=== PATIENT | male | born 1955 | race Caucasian/White ===

== ENCOUNTER → 2016-06-07 | Outpatient (CLI) | payer MEDICARE ==
--- NOTE | 2016-06-08 09:53 | XR ---
EXAMINATION TYPE: XR chest 2V DATE OF EXAM: 06/07/2016 2:18 PM COMPARISON: 08/15/2011 HISTORY: Cough FINDINGS: The lungs are clear and there is no pneumothorax, pleural effusion, or focal pneumonia. Arthropathy of the shoulders noted. Degenerative and hypertrophic change of the spine. Hyperinflation suggests CO PD. IMPRESSION: 1. No acute process.
== END | disposition home or self-care (01) ==
LOC: RADXRYALE 13:50
PROVIDERS: ATTEND Internal Medicine
DX: R05 Cough (principal)
CPT/HCPCS: 71020

== ENCOUNTER → 2016-07-18 | Outpatient (CLI) | payer MEDICARE ==
--- NOTE | 2016-07-18 16:30 | CTL ---
EXAMINATION TYPE: CT Low Dose Lung DATE OF EXAM ORDERED: 07/18/2016 4:20 PM HISTORY: Long-term tobacco use. Lung cancer screening. Occasional shortness of breath and mild chest discomfort per patient CT DLP: 112.[address] CTDI: 2.8 mGy Automated exposure control for dose reduction was used. SCREENING VISIT: Initial study COMPARISON: Chest x-ray June 07, 2016. TECHNIQUE: Low dose computed tomography scan was performed through the chest at 1 mm thick sections a nd reconstructed images in the coronal plane at [address] DIAGNOSTIC QUALITY: Satisfactory FINDINGS: LUNG NODULES: None. LUNGS: COPD: Severity: Mild Fibrosis: Severity: Mild bibasilar posterior linear scarring or fibrosis. Lymph nodes: No suspicious greater than 1 cm lymph nodes. Slightly prominent but subcentimeter AP [place], prevascular, paratracheal, pericarinal, and subcarinal lymph nodes are noted Other findings: No additional significant findings seen BILATERAL PLEURAL SPACE: Effusion: None Calcification: None Thickening: None Pneumothorax: None HEART: Heart Size: Normal Coronary calcification: Mild to moderate most prominent proximal LAD. Pericardial effusion: None OTHER FINDINGS: Upper abdomen: There is a 5 cm simple appearing cyst in the left hepatic lobe. There is 2 mm calculus mid to lower pole level left kidney on axial image 354 Bony thorax: There is moderate multilevel spurring throughout the thoracic spine. Supraclavicular region: No suspicious abnormality is evident Other: No additional significant abnormality is seen. IMPRESSION: No suspicious nodule or mass identified. FOLLOW UP CT CHEST RECOMMENDATION: Annual low-dose lung screening CT CT LUNG RAD: Lung-Rad 1 Negative
== END | disposition home or self-care (01) ==
LOC: RADCTMAIN 16:00
PROVIDERS: ATTEND Internal Medicine Cardiovascular Disease
DX: Z12.2 Encounter for screening for malignant neoplasm of respiratory organs (principal); Z87.891 Personal history of nicotine dependence

== ENCOUNTER 2017-10-24 11:13 | Observation (INO) | payer MEDICARE ==
[2017-10-24] MEDS ORDERED: MECLIZINE 12.5 MG TAB PO STA (11:43)
[2017-10-24] MEDS ORDERED: SODIUM CHLORIDE 0.9% 1,000 ML IV STA (11:43)
[2017-10-24 12:28] LABS: Basophils % (A) 0 %; Eosinophils # (A) 0.1 k/uL (0-0.7); Eosinophils % (A) 1 %; HCT 47.3 % (39.0-53.0); HGB 16.1 gm/dL (13.0-17.5); Lymphocytes # (A) 1.1 k/uL (1.0-4.8); Lymphocytes % (A) 14 %; MCH 30.4 pg (25.0-35.0); MCV 89.5 fL (80.0-100.0); Mean Platelet Volume 7.8; Monocytes # (A) 0.4 k/uL (0-1.0); Monocytes % (A) 6 %; Neutrophils % (A) 77 %; Platelet Count 173 k/uL (150-450); RBC 5.28 m/uL (4.30-5.90); RDW 12.6 % (11.5-15.5); WBC 7.7 k/uL (3.8-10.6)
[2017-10-24 12:31] LABS: INR 1.1 (<1.2); Prothrombin Time 10.3 sec (9.0-12.0)
[2017-10-24 12:41] LABS: ALT 32 U/L (21-72); AST 21 U/L (17-59); Albumin 3.9 g/dL (3.5-5.0); Alkaline Phosphatase 90 U/L (38-126); Anion Gap 9 mmol/L; Blood Urea Nitrogen 18 mg/dL (9-20); Calcium 8.9 mg/dL (8.4-10.2); Carbon Dioxide 22 mmol/L (22-30); Chloride 111 mmol/L (98-107); Glucose 97 mg/dL (74-99); Potassium 4.4 mmol/L (3.5-5.1); Sodium 142 mmol/L (137-145); Total Bilirubin 0.4 mg/dL (0.2-1.3); Total Protein 6.3 g/dL (6.3-8.2)
--- NOTE | 2017-10-24 13:18 | CT ---
EXAMINATION TYPE: CT brain wo con DATE OF EXAM: 10/24/2017 COMPARISON: NONE HISTORY: Left sided facial numbness and dizziness CT DLP: 1065.7 mGycm Automated exposure control for dose reduction was used. FINDINGS: There is no acute intracranial hemorrhage, mass effect, or midline shift identified. No suspicious e xtra-axial fluid collection. Few subcentimeter patchy areas of hypoattenuation are seen within the pe riventricular and subcortical white matter, likely on the basis of chronic microangiopathy. The ventr icles and sulci are within normal limits in size. The globes are intact and the visualized sinuses a re clear. Atherosclerosis is seen of the intracranial vasculature. IMPRESSION: No acute intracranial process. No evidence of hemorrhage, mass effect, or midline shift is seen.
--- NOTE | 2017-10-24 13:26 | XR ---
EXAMINATION TYPE: XR chest 2V DATE OF EXAM: 10/24/2017 COMPARISON: 06/07/2016 HISTORY: Neck pain, dizziness, and slurred speech. Weakness. TECHNIQUE: Frontal and lateral views of the chest are obtained. FINDINGS: There is no focal air space opacity, pleural effusion, or pneumothorax seen. The cardiac silhouette size is within normal limits. The osseous structures are intact. There is redemonstratio n of pulmonary hyperinflation again suggestive of underlying COPD as there is flattening of the diaph ragms. Mild multilevel degenerative changes of the thoracic spine and acromioclavicular joints are al so seen. IMPRESSION: No acute cardiopulmonary process. Chronic changes of COPD.
--- NOTE | 2017-10-24 13:26 | XR ---
EXAMINATION TYPE: XR cervical spine comp DATE OF EXAM: 10/24/2017 COMPARISON: NONE HISTORY: Neck pain TECHNIQUE: Four views are submitted. FINDINGS: The odontoid is intact. There are no compression deformities. The prevertebral soft tissue structur es are within normal limits. Calcification the soft tissue the neck likely related carotid artery. T here is a moderate to severe degenerative disc disease with C5-6 and C6-C7 with multilevel severe fac et arthropathy. Findings suggest neural foraminal encroachment bilaterally at levels C3-C7. IMPRESSION: 1. Multilevel degenerative disc disease with severe facet arthropathy. Severe degenerative disc disea se C5-6 and C6-C7. 2. Multilevel bilateral neural foraminal encroachment..
[2017-10-24 15:59] LABS: Appearance,Urine Clear (Clear); Bilirubin,Urine Negative (Negative); Blood,Urine Negative (Negative); Color,Urine Yellow; Glucose,Urine (UA) Negative (Negative); Ketones,Urine 1+ (Negative); Leukocyte Esterase,Urine Negative (Negative); Nitrite,Urine Negative (Negative); PH, Urine 5.5 (5.0-8.0); Protein,Urine Negative (Negative); Urobilinogen,Urine <2.0 mg/dL (<2.0)
[2017-10-24] MEDS ORDERED: ASPIRIN 81 MG PO STA ×2 (15:59→16:21)
[2017-10-24] MEDS ORDERED: NALOXONE 0.4 MG/ML 1 ML VIAL IV PRN (16:16)
[2017-10-24] MEDS ORDERED: MORPHINE SULFATE 2 MG/ML SYRINGE IV PRN (16:16)
[2017-10-24] MEDS ORDERED: ACETAMINOPHEN TAB 325 MG TAB PO PRN (16:16)
[2017-10-24] MEDS ORDERED: ONDANSETRON 4 MG/2 ML VIAL IVP PRN (16:16)
--- NOTE | 2017-10-24 16:16 | ED ---
Dizziness HPI - General Chief Complaint: Dizziness Stated Complaint: poss cva Time Seen by Provider: 10/24/17 11:30 Source: patient Mode of arrival: ambulatory Limitations: no limitations - History of Present Illness Initial Comments: 62 years old gentleman comes in with the dizziness and he had the episode of slurred speech yesterday he feels left-sided the face is numb he doesn't seem right it's not hurting but he feels pins and needles also complaining about the neck discomfort he had neck trauma long time ago he was used to place cords for years ago his neck was in a traction for about 1 week, he is working on a project where he was straining his neck been no trauma to the back area system is unremarkable otherwise - Related Data Home Medications Medication Instructions Recorded Confirmed Cyanocobalamin (Vitamin B-12) 1,000 mcg PO DAILY 10/24/17 10/24/17 [Vitamin B-12] Ibuprofen [Motrin] 600 mg PO Q8HR PRN 10/24/17 10/24/17 Multivitamin/Iron/Folic Acid 1 tab PO DAILY 10/24/17 10/24/17 [Centrum Complete Multivit Tab] traMADol HCL [Ultram] 50 mg PO Q8H PRN 10/24/17 10/24/17 Allergies Allergy/AdvReac Type Severity Reaction Status Date / Time No Known Allergies Allergy Verified 10/24/17 11:35 Review of Systems ROS Statement: Those systems with pertinent positive or pertinent negative responses have been documented in the HPI. ROS Other: All systems not noted in ROS Statement are negative. Past Medical History Past Medical History: Rheumatoid Arthritis (RA) Additional Past Medical History / Comment(s): FELL ON Saturday01-09-15-FX RT HIP, HX RT KIDNEY CA History of Any Multi-Drug Resistant Organisms: None Reported Past Surgical History: Joint Replacement, Orthopedic Surgery Additional Past Surgical History / Comment(s): RT NEPHRECTOMY,RT KNEE REPLACE, ROT CUFF REPAIR LT,LT HAND REMOVAL OF A NAIL,MULT ORTHOSCOPIC SURG MEGAN KNEES, CLOSED REDUCTION/PINNING OF RT HIP Past Anesthesia/Blood Transfusion Reactions: Motion Sickness, Postoperative Nausea & Vomiting (PONV) Past Psychological History: No Psychological Hx Reported Smoking Status: Current every day smoker Past Alcohol Use History: Occasional Past Drug Use History: None Reported - Past Family History Mother Family Medical History: Cancer Father Family Medical History: Cancer General Exam - General Exam Comments Initial Comments: General: The patient is awake and alert, in no distress, and does not appear acutely ill. Skin: Skin is warm and dry and no rashes or lesions are noted. Eye: Pupils are equal, round and reactive to light, extra-ocular movements are intact; there is normal conjunctiva bilaterally. Ears, nose, mouth and throat: There are moist mucous membranes and no oral lesions. Left-sided the face feels numb, but there are no motor deficits Neck: The neck is supple, there is no tenderness no signs of meningitis Cardiovascular: There is a regular rate and rhythm. No murmur, rub or gallop is appreciated. Respiratory: To auscultation bilateral, no wheezing no rhonchi no distress respiratory velasquez noticed Gastrointestinal: Soft, non-distended, non-tender abdomen without masses or organomegaly noted. There is no rebound or guarding present. Bowel sounds are unremarkable. Back: There is no tenderness to palpation in the midline. There is no obvious deformity. Musculoskeletal: Normal ROM, no tenderness, There is no pedal edema. There is no calf tenderness or swelling. No cords were appreciated. Neurological: CN II-XII intact, Cranial nerves III through XII are intact. There are no obvious motor or sensory deficits. Coordination appears grossly intact. Speech is normal. Psychiatric: Cooperative, appropriate mood & affect, normal judgment. Limitations: no limitations Course Vital Signs 10/24/17 10/24/17 10/24/17 11:15 13:36 14:40 Temperature 98.3 F Pulse Rate 65 52 L 52 L Respiratory 18 16 18 Rate Blood Pressure 182/68 139/70 151/80 O2 Sat by Pulse 98 97 97 Oximetry 10/24/17 15:41 Temperature Pulse Rate 48 L Respiratory 16 Rate Blood Pressure 161/87 O2 Sat by Pulse 98 Oximetry Labs and imaging were reviewed cervical spine x-ray shows severe degenerative disease and chest x-rays unremarkable head CT is unremarkable CBC compressive metabolic panel troponin and EKG are absolutely unremarkable considering his dizziness and left-sided facial numbness and admit him and will allow consult to neurology he be admitted to Dr. Brown service EKG Findings - EKG Comments: EKG Findings:: EKG is normal sinus rather sinus bradycardia ventricular rate is 62 IA interval is 138 QRS duration is 95/QTc is 450/422 review of this EKG does not reveal any ST elevation or ST depression Medical Decision Making - Lab Data Result diagrams: 10/24/17 12:07 10/24/17 12:07 Lab Results 10/24/17 10/24/17 10/24/17 Range/Units 12:07 12:07 12:07 WBC 7.7 (3.8-10.6) k/uL RBC 5.28 (4.30-5.90) m/uL Hgb 16.1 (13.0-17.5) gm/dL Hct 47.3 (39.0-53.0) % MCV 89.5 (80.0-100.0) fL MCH 30.4 (25.0-35.0) pg MCHC 34.0 (31.0-37.0) g/dL RDW 12.6 (11.5-15.5) % Plt Count 173 (150-450) k/uL Neutrophils % 77 % Lymphocytes % 14 % Monocytes % 6 % Eosinophils % 1 % Basophils % 0 % Neutrophils # 6.0 (1.3-7.7) k/uL Lymphocytes # 1.1 (1.0-4.8) k/uL Monocytes # 0.4 (0-1.0) k/uL Eosinophils # 0.1 (0-0.7) k/uL Basophils # 0.0 (0-0.2) k/uL PT 10.3 (9.0-12.0) sec INR 1.1 (<1.2) Sodium 142 (137-145) mmol/L Potassium 4.4 (3.5-5.1) mmol/L Chloride 111 H (98-107) mmol/L Carbon Dioxide 22 (22-30) mmol/L Anion Gap 9 mmol/L BUN 18 (9-20) mg/dL Creatinine 0.99 (0.66-1.25) mg/dL Est GFR (CKD-EPI)AfAm >90 (>60 ml/min/1.73 sqM) Est GFR (CKD-EPI)NonAf 80 (>60 ml/min/1.73 sqM) Glucose 97 (74-99) mg/dL Calcium 8.9 (8.4-10.2) mg/dL Total Bilirubin 0.4 (0.2-1.3) mg/dL AST 21 (17-59) U/L ALT 32 (21-72) U/L Alkaline Phosphatase 90 (38-126) U/L Troponin I (0.000-0.034) ng/mL Total Protein 6.3 (6.3-8.2) g/dL Albumin 3.9 (3.5-5.0) g/dL Urine Color Urine Appearance (Clear) Urine pH (5.0-8.0) Ur Specific [place] (1.001-1.035) Urine Protein (Negative) Urine Glucose (UA) (Negative) Urine Ketones (Negative) Urine Blood (Negative) Urine Nitrite (Negative) Urine Bilirubin (Negative) Urine Urobilinogen (<2.0) mg/dL Ur Leukocyte Esterase (Negative) 10/24/17 10/24/17 Range/Units 12:07 15:51 WBC (3.8-10.6) k/uL RBC (4.30-5.90) m/uL Hgb (13.0-17.5) gm/dL Hct (39.0-53.0) % MCV (80.0-100.0) fL MCH (25.0-35.0) pg MCHC (31.0-37.0) g/dL RDW (11.5-15.5) % Plt Count (150-450) k/uL Neutrophils % % Lymphocytes % % Monocytes % % Eosinophils % % Basophils % % Neutrophils # (1.3-7.7) k/uL Lymphocytes # (1.0-4.8) k/uL Monocytes # (0-1.0) k/uL Eosinophils # (0-0.7) k/uL Basophils # (0-0.2) k/uL PT (9.0-12.0) sec INR (<1.2) Sodium (137-145) mmol/L Potassium (3.5-5.1) mmol/L Chloride (98-107) mmol/L Carbon Dioxide (22-30) mmol/L Anion Gap mmol/L BUN (9-20) mg/dL Creatinine (0.66-1.25) mg/dL Est GFR (CKD-EPI)AfAm (>60 ml/min/1.73 sqM) Est GFR (CKD-EPI)NonAf (>60 ml/min/1.73 sqM) Glucose (74-99) mg/dL Calcium (8.4-10.2) mg/dL Total Bilirubin (0.2-1.3) mg/dL AST (17-59) U/L ALT (21-72) U/L Alkaline Phosphatase (38-126) U/L Troponin I <0.012 (0.000-0.034) ng/mL Total Protein (6.3-8.2) g/dL Albumin (3.5-5.0) g/dL Urine Color Yellow Urine Appearance Clear (Clear) Urine pH 5.5 (5.0-8.0) Ur Specific [place] 1.020 (1.001-1.035) Urine Protein Negative (Negative) Urine Glucose (UA) Negative (Negative) Urine Ketones 1+ H (Negative) Urine Blood Negative (Negative) Urine Nitrite Negative (Negative) Urine Bilirubin Negative (Negative) Urine Urobilinogen <2.0 (<2.0) mg/dL Ur Leukocyte Esterase Negative (Negative) Disposition Clinical Impression: Numbness and tingling of left side of face, Dizziness Disposition: ADMITTED IP TO THIS [facility] Condition: Good Referrals: Kathryn Thomas MD [Primary Care Provider] - 1-2 days
--- NOTE | 2017-10-24 18:18 | P.CNNES ---
History of Present Illness Consult date: 10/24/17 Reason for Consult: Patient admitted with dizziness and left facial numbness. History of Present Illness: This patient is a 62-year-old right-handed white male was in his usual state of health yesterday. He was at home and was working on replacing a sink and was bending underneath the sink well and apparently developed symptoms of dizziness and lightheadedness. Rarely he was in different positions moving his head and neck to get to the sink and work with the plumbing underneath the sink. He was able to finish his work and did complain of increased symptoms of dizziness which was associated with numbness on the left side of his face. He also noted that he was having difficulty getting his words out with some slurring of speech. His could also noticed the changes. He decided to come to the emergency room for further evaluation. He was seen in the emergency room today by Dr. Zapata. He continued to complain of left-sided facial numbness and dizziness. He was sent for a computed tomography scan of the brain which revealed no acute intracranial process. No evidence of hemorrhage, mass effect , or midline shift. He also underwent a x-ray of the cervical spine as he complained of neck pain after working on the sink yesterday. X-ray results of the cervical spine revealed multiple level degenerative disc disease with severe facet arthropathy. There was severe degenerative disc disease at C5-C6 and C6-C7 levels. Patient states that the pain in the neck has come on suddenly since he was doing the work yesterday. He denies any radiating pain down his arms. He does feel an area of severe intense pain in the middle of his neck region. We have recommended the patient to be evaluated by orthopedic spine surgery for further evaluation. Patient denies any previous history of TIA or stroke. He states that his left-sided facial numbness persists today. He does have stroke risk factors in the past including hypertension and hyperlipidemia. He states he underwent a recent cardiology evaluation for abnormal chest pain about 6 months ago. He states that he was sent to the cardiology clinic and [place] and was sent for various test and apparently all of these were normal at that time. He denies any chest pain at this time. He states that his dizziness is more sense of disequilibrium. He denies any recent inner ear infections. He does not take aspirin on a regular basis at home but does take Motrin for treatment of arthritis. The patient is now admitted and neurology has been consulted for further evaluation and recommendations. Review of Systems Constitutional: Denies chills, Denies fever Eyes: denies blurred vision, denies pain Ears, nose, mouth and throat: Denies headache, Denies sore throat Cardiovascular: Denies chest pain, Denies shortness of breath Respiratory: Denies cough Gastrointestinal: Denies abdominal pain, Denies diarrhea, Denies nausea, Denies vomiting Musculoskeletal: Reports neck pain, Denies myalgias Integumentary: Denies pruritus, Denies rash Neurological: Reports change in speech, Reports paresthesias, Denies numbness, Denies weakness Psychiatric: Denies anxiety, Denies depression Endocrine: Denies fatigue, Denies weight change Past Medical History Past Medical History: Rheumatoid Arthritis (RA) Additional Past Medical History / Comment(s): FELL ON Saturday01-09-15-FX RT HIP, HX RT KIDNEY [place] History of Any Multi-Drug Resistant Organisms: None Reported Past Surgical History: Joint Replacement, Orthopedic Surgery Additional Past Surgical History / Comment(s): RT NEPHRECTOMY,RT KNEE REPLACE, ROT CUFF REPAIR LT,LT HAND REMOVAL OF A NAIL,MULT ORTHOSCOPIC SURG MEGAN KNEES, CLOSED REDUCTION/PINNING OF RT HIP Past Anesthesia/Blood Transfusion Reactions: Motion Sickness, Postoperative Nausea & Vomiting (PONV) Past Psychological History: No Psychological Hx Reported Smoking Status: Current every day smoker Past Alcohol Use History: Occasional Past Drug Use History: None Reported - Past Family History Mother Family Medical History: Cancer Father Family Medical History: Cancer Medications and Allergies Home Medications Medication Instructions Recorded Confirmed Type Cyanocobalamin (Vitamin B-12) 1,000 mcg PO DAILY 10/24/17 10/24/17 History [Vitamin B-12] Ibuprofen [Motrin] 600 mg PO Q8HR PRN 10/24/17 10/24/17 History Multivitamin/Iron/Folic Acid 1 tab PO DAILY 10/24/17 10/24/17 History [Centrum Complete Multivit Tab] traMADol HCL [Ultram] 50 mg PO Q8H PRN 10/24/17 10/24/17 History Allergies Allergy/AdvReac Type Severity Reaction Status Date / Time No Known Allergies Allergy Verified 10/24/17 11:35 Physical Examination - Vital Signs Vital Signs: Vital Signs Temp Pulse Resp BP Pulse Ox 10/24/17 16:20 53 L 16 157/84 98 10/24/17 15:41 48 L 16 161/87 98 10/24/17 14:40 52 L 18 151/80 97 10/24/17 13:36 52 L 16 139/70 97 10/24/17 11:15 98.3 F 65 18 182/68 98 Intake and Output 10/24/17 10/24/17 10/24/17 06:59 14:59 22:59 Other: Weight 89.358 kg - Constitutional General appearance: average body habitus, cooperative - EENT EENT: PERRL, mucous membranes moist - Respiratory Respiratory: lungs clear, normal breath sounds - Cardiovascular Cardiovascular: regular rate, normal S1, normal S2 Extremities: no peripheral edema bilaterally - Gastrointestinal Gastrointestinal: normoactive bowel sounds - Integumentary Integumentary: normal - Neurologic Cranial nerve examination: PERRL, EOMI, VFF, V1/V2/V3 grossly intact, face symmetric, intact gag reflex, intact corneal reflex, normal palatal elevation Speech examination: intact Sensorimotor examination: intact Detailed motor examination: grossly full strength in all extremities Motor examination - right side: 4/5: biceps, triceps, wrist flexion, wrist extension, full time staff interpreter, hip flexors, knee extensors, dorsiflexion, toe extension (EHL) , plantarflexion Motor examination - left side: 4/5: biceps, triceps, wrist flexion, wrist extension, full time staff interpreter, hip flexors, knee extensors, dorsiflexion, toe extension (EHL) , plantarflexion Detailed sensory examination: intact Reflex and gait examination: intact Reflexes: 1+: ankle, bicep, knee, tricep - Musculoskeletal Musculoskeletal: no pain - Psychiatric Psychiatric: mood/affect appropriate, cooperative Results - Laboratory Findings CBC and BMP: 10/24/17 12:07 10/24/17 12:07 Abnormal Lab Findings: Abnormal Labs 10/24/17 10/24/17 12:07 15:51 Chloride 111 H Urine Ketones 1+ H Assessment and Plan (1) Transient brainstem ischemia Current Visit: Yes Status: Acute Code(s): G45.9 - TRANSIENT CEREBRAL ISCHEMIC ATTACK, UNSPECIFIED SNOMED Code(s): 554470840 (2) Numbness and tingling of left side of face Current Visit: Yes Status: Acute Code(s): R20.0 - ANESTHESIA OF SKIN; R20.2 - PARESTHESIA OF SKIN SNOMED Code(s): 93252903 (3) Dizziness Current Visit: Yes Status: Acute Code(s): R42 - DIZZINESS AND GIDDINESS SNOMED Code(s): 785588649 (4) Neck pain Current Visit: Yes Status: Acute Code(s): M54.2 - CERVICALGIA SNOMED Code( s): 19670018 Plan: This patient is a 62-year-old male who was working at home yesterday repairing a sink and was suddenly found to have symptoms of dizziness and neck pain. Apparently his symptoms came on suddenly with a sense of disequilibrium as well as numbness involving the left side of his face. He complained of increase difficulty with his speech and language as he felt he was slurring his words. This was noted by his yesterday as well. He was brought into the emergency room today for further evaluation. He was seen in the ER by Dr. Zapata. Computed tomography scan of the brain and cervical spine x-rays were completed. CAT scan of the brain failed to reveal any acute stroke or hemorrhage. CT of the cervical spine reveals severe degenerative disc disease at C5-C6. He continues to complain of neck pain. He still has left-sided facial numbness. We recommend patient undergo MRI of the brain to rule out brainstem ischemia. Recommend placing him on aspirin daily for secondary stroke prevention. Would recommend a complete stroke evaluation given his current symptoms. We will obtain a consultation with orthopedic spine surgery for evaluation of cervical disc disease. His overall prognosis at this time remains very guarded. Time with Patient: Greater than 30
[2017-10-24 20:37] VITALS: RESP 18
--- NOTE | 2017-10-24 22:17 | P.HPIM ---
History of Present Illness H&P Date: 10/24/17 Chief Complaint: Dizziness Patient is a 62-year-old male with a known history of rheumatoid arthritis, hypertension and history of renal cancer with left kidney removal came to ER with complaints of dizziness and neck pain since yesterday. Patient was trying to put a sink in the cabinet and he thinks he might have Bumped His Neck on 2 since then he's been having dizziness and worsening neck pain as well. Patient was also having numbness/tingling in the left side of face. Patient also is feeling like room spinning. Patient today was unable to get out of the bed and was feeling very dizzy and he threw up when he went to the bathroom. He came to the hospital for further evaluation. He denied any weakness in the extremities. No fever no chills. No chest pain or shortness of breath. CT head showed no acute intracranial process. Chest x-ray showed no acute cardio pulmonary process EKG showed sinus bradycardia Cervical spine x-ray showed multilevel degenerative disc disease with severe facet arthropathy. Multilevel bilateral neural foraminal encroachment.. Patient says that he had cardiac workup done due to dizziness and had 2-D echo and stress test. Patient was supposed to get even and monitor but he never was never able to follow-up of breath. Review of Systems Constitutional: Patient denies any fever or chills . No generalized weakness or weight loss. Abdomen: Patient denied nausea vomiting and diarrhea and abdominal pain. Cardiovascular: Patient denies any chest pain or short of breath no palpitations. Respiratory: patient denied any cough is from production. No shortness of breath Neurologic: Patient does have numbness of the left side of the face. Dizziness neck pain and nausea Musculoskeletal: Patient denies any complaints of joint swelling or deformity. Skin: Negative Psychiatric: Negative Endocrine: No heat or cold intolerance. No recent weight gain. Genitourinary: No dysuria or hematuria. All other 14 point ROS negative except the above Past Medical History Past Medical History: Pneumonia, Rheumatoid Arthritis (RA) Additional Past Medical History / Comment(s): 9-6-15-FX RT HIP d/t fall, HX RT KIDNEY CA- no chemo, no radiation. hx of shingels approx 3 years ago affected lt side of face History of Any Multi-Drug Resistant Organisms: None Reported Past Surgical History: Joint Replacement, Orthopedic Surgery Additional Past Surgical History / Comment(s): RT NEPHRECTOMY,RT KNEE REPLACE, ROT CUFF REPAIR LT,LT HAND REMOVAL OF A NAIL,MULT ORTHOSCOPIC SURG MEGAN KNEES, CLOSED REDUCTION/PINNING OF RT HIP Past Anesthesia/Blood Transfusion Reactions: Motion Sickness, Postoperative Nausea & Vomiting (PONV) Additional Past Anesthesia/Blood Transfusion Reaction / Comment(s): never recieved blood. Smoking Status: Former smoker - Past Family History Mother Family Medical History: Cancer Father Family Medical History: Cancer Medications and Allergies Home Medications Medication Instructions Recorded Confirmed Type Cyanocobalamin (Vitamin B-12) 1,000 mcg PO DAILY 10/24/17 10/24/17 History [Vitamin B-12] Ibuprofen [Motrin] 600 mg PO Q8HR PRN 10/24/17 10/24/17 History Multivitamin/Iron/Folic Acid 1 tab PO DAILY 10/24/17 10/24/17 History [Centrum Complete Multivit Tab] traMADol HCL [Ultram] 50 mg PO Q8H PRN 10/24/17 10/24/17 History Allergies Allergy/AdvReac Type Severity Reaction Status Date / Time No Known Allergies Allergy Verified 10/24/17 11:35 Physical Exam Vitals: Vital Signs Temp Pulse Pulse Pulse Resp BP BP 10/24/17 20:00 97.1 F L 50 L 50 L 18 138/79 10/24/17 17:07 97.8 F 10/24/17 16:20 53 L 16 157/84 10/24/17 15:41 48 L 16 161/87 10/24/17 14:40 52 L 18 151/80 10/24/17 13:36 52 L 16 139/70 10/24/17 11:15 98.3 F 65 18 182/68 Pulse Ox 10/24/17 20:00 97 10/24/17 17:07 10/24/17 16:20 98 10/24/17 15:41 98 10/24/17 14:40 97 10/24/17 13:36 97 10/24/17 11:15 98 Intake and Output 10/24/17 10/24/17 10/24/17 06:59 14:59 22:59 Other: Voiding Method Urinal Weight 89.358 kg PHYSICAL EXAMINATION: Patient is lying in the bed comfortably, no acute distress, awake alert and oriented.. HEENT: Normocephalic. Neck is supple. Pupils reactive. Nostrils clear. Oral cavity is moist. Ears reveal no drainage. Neck reveals no JVD, carotid bruits, or thyromegaly. CHEST EXAMINATION: Trachea is central. Symmetrical expansion. Lung ying clear to auscultation and percussion. CARDIAC: Normal S1, S2 with no gallops. No murmurs ABDOMEN: Soft. Bowel sounds normal. No organomegaly. No abdominal bruits. Extremities: reveal no edema. No clubbing or cyanosis Neurologically awake, alert, oriented x3 with well-coordinated movements. Left- sided facial numbness. No weakness. No other focal deficits noted Skin: No rash or skin lesions. Psychiatric: Cooperative. Nonsuicidal Musculoskeletal: No joint swelling or deformity. Normal range of motion. Results CBC & Chem 7: 10/24/17 12:07 10/24/17 12:07 Labs: Abnormal Lab Results - Last 24 Hours (Table) 10/24/17 10/24/17 Range/Units 12:07 15:51 Chloride 111 H (98-107) mmol/L Urine Ketones 1+ H (Negative) Thrombosis Risk Factor Assmnt - DVT/VTE Prophylaxis DVT/VTE Prophylaxis: Pharmacologic Prophylaxis ordered - Choose All That Apply Each Risk Factor Represents 2 Points: Age 61-74 years Thrombosis Risk Factor Assessment Total Risk Factor Score: 2 Thrombosis Risk Factor Assessment Level: Low Risk Assessment and Plan Assessment: Neck pain with dizziness followed by twisted movement yesterday. Likely due to spinal stenosis Possible TIA Multilevel cervical neck arthropathy Hypertension History of renal cell carcinoma status post nephrectomy Rheumatoid arthritis Previous history of smoking DVT prophylaxis Plan: Patient will be started on aspirin. Patient had CT head done in the ER showed no acute process. Neurology was consulted. Carotid duplex and MRA of the brain was ordered. Orthopedic consultation due to multilevel arthropathy. We' ll continue to follow closely and start back on home medications. Further recommendations based on the clinical course. Time with Patient: Greater than 30
--- NOTE | 2017-10-25 00:49 | US ---
EXAMINATION TYPE: US carotid duplex BILAT DATE OF EXAM: 10/24/2017 COMPARISON: NONE CLINICAL HISTORY: Acute left facial numbness.. Left sided numbness. EXAM MEASUREMENTS: RIGHT: Peak Systolic Velocity (PSV) cm/sec ----- Right CCA: 50.8 ----- Right ICA: 65.8 ----- Right ECA: 62.5 ICA/CCA ratio: 1.3 RIGHT: End Diastole cm/sec ----- Right CCA: 7.1 ----- Right ICA: 18.6 ----- Right ECA: 7.6 LEFT: Peak Systolic Velocity (PSV) cm/sec ----- Left CCA: 56.7 ----- Left ICA: 68.6 ----- Left ECA: 73.9 ICA/CCA ratio: 1.2 LEFT: End Diastole cm/sec ----- Left CCA: 13.1 ----- Left ICA: 18.4 ----- Left ECA: 7.8 VERTEBRALS (direction of flow): Right Vertebral: Antegrade Left Vertebral: Antegrade Rhythm: Normal No significant stenosis seen IMPRESSION: There is antegrade flow in the vertebral arteries. The images and measurements suggest l ess than 20% stenosis in both internal carotid arteries. Criteria for Assigning % of Stenosis / Diameter reduction (Estimation based on the indirect measurements of the internal carotid artery velocities (ICA PSV). 1. Normal (no stenosis)=ICA PSV < 125 cm/s: ratio < 2.0: ICA EDV<40 cm/s. 2. Less than 50% stenosis=ICA PSV < 125 cm/s: ratio < 2.0: ICA EDV<40 cm/s. 3. 50 to 69% stenosis=ICA PSV of 125 to 230 cm/s: ration 2.0 ? 4.0: ICA EDV 40-100 cm/s. 4. Greater than 70% stenosis to near occlusion= ICA PSV > 230 cm/s: ratio > 4.0: ICA EDV > 100 cm/s. 5. Near occlusion= ICA PSV velocities may be low or undetectable: variable ratio and ICA EDV. 6. Total occlusion=unable to detect flow.
[2017-10-25] MEDS: IBUPROFEN 600 MG TAB PO PRN ×3 (04:43→20:23)
[2017-10-25] MEDS: traMADol 50 MG TAB PO PRN ×3 (04:44→20:23)
[2017-10-25 06:48] LABS: Cholesterol 152 mg/dL (<200); HDL Cholesterol 33 mg/dL (40-60); LDL Cholesterol,Calculated 87 mg/dL (0-99); Triglycerides 159 mg/dL (<150)
--- NOTE | 2017-10-25 08:10 | MR ---
EXAMINATION TYPE: MR brain wo con DATE OF EXAM: 10/25/2017 COMPARISON: Correlation CT 10/24/2017 HISTORY: 62-year-old male Left facial numbness and dizziness TECHNIQUE: Multiplanar, multisequence images of the brain and brainstem were acquired without IV con trast. Diffusion weighted imaging is performed. FINDINGS: No evidence for acute infarction, hemorrhage, mass, mass effect, midline shift, herniation, effacemen t of basal cisterns, or extra-axial fluid collection. The ventricles and sulci are age-appropriate. Major intracranial flow voids are intact. T2/FLAIR weighted sequences show only a couple punctate bright signal foci within the subcortical reg ions of the frontal lobes, nonspecific, most likely relating to trace burden of chronic small vessel ischemic disease. Midline structures demonstrate normal morphology. The craniocervical junction is normal. Post contrast images demonstrate no evidence of pathologic enhancement. Dural venous sinuses are pat ent. Mild mucosal thickening throughout the ethmoid air cells. Globes are intact. IMPRESSION: 1. No acute intracranial abnormality seen. 2. Mild chronic ethmoid sinus disease.
[2017-10-25] MEDS: CYANOCOBALAMIN 500 MCG TAB PO SCH (08:15)
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
[2017-10-25] MEDS: methylPREDNISolone SOD SUCCI 125 MG/2 ML VIAL IV SCH ×2 (12:43→20:23)
[2017-10-25] MEDS: MULTIVITAMINS, THERA 1 EACH TAB PO SCH (12:44)
--- NOTE | 2017-10-25 15:05 | P.PN ---
Subjective Progress Note Date: 10/25/17 This patient is a 62-year-old right-handed white male who was seen yesterday neurology consultation for evaluation of left-sided facial numbness and dizziness. Patient's symptoms suggested possibility of TIA versus brainstem ischemia. For this reason he was sent for MRI of the brain today which was completed. MRI reveals no acute intracranial abnormality. There was mild chronic ethmoid sinusitis. He was also complaining of neck pain and for this reason was seen by orthopedic surgery today. He has evidence suggesting cervical stenosis and they are recommending he follow up in the outpatient orthopedic surgery clinic. The patient was prescribed a cervical soft collar over this is made his neck pain worse. He is taken off the soft collar at this time. He should follow-up in the outpatient orthopedic clinic for further evaluation of cervical stenosis. Overall the patient seems to be making some improvement as there is less numbness noted today. He underwent carotid Doppler ultrasound yesterday which revealed no significant carotid artery stenosis. We would recommend placing him on aspirin daily for secondary stroke prevention. Patient may follow-up in the outpatient neurology clinic in 2-3 weeks. His overall prognosis at this time remains guarded. Objective - Vital Signs Vital signs: Vital Signs Temp 98.8 F 10/25/17 07:55 Pulse 56 L 10/25/17 07:55 Resp 18 10/25/17 07:55 BP 155/72 10/25/17 07:55 Pulse Ox 96 10/25/17 07:55 Intake & Output 10/24/17 10/25/17 10/25/17 18:59 06:59 18:59 Intake Total 598 Balance 598 Weight 89.358 kg 96.1 kg Intake: Oral 598 Other: Voiding Method Urinal # Voids 2 1 3 - Exam Physical examination: PHYSICAL EXAMINATION: Patient is resting comfortably in bed. VITAL SIGNS: Blood pressure is [155/72]. Heart rate is [56]. Respiration is [18] . Temperature is [98.8]. HEENT: Head is atraumatic, neck is supple, there were no carotid bruits. CHEST: Lungs are clear to auscultation and percussion. CARDIAC: S1, S2 normal rate and rhythm. There is no murmur. ABDOMEN: Soft and nontender. Bowel sounds are present. EXTREMITIES: There is no pedal edema. Peripheral pulses are present. Neurological examination: Patient has a nonfocal neurological exam that is unchanged from yesterday. His neurological examination is otherwise nonfocal. - Labs CBC & Chem 7: 10/24/17 12:07 10/24/17 12:07 Labs: Abnormal Lab Results - Last 24 Hours (Table) 10/24/17 10/25/17 Range/Units 15:51 05:38 Triglycerides 159 H (<150) mg/dL HDL Cholesterol 33 L (40-60) mg/dL Urine Ketones 1+ H (Negative) Assessment and Plan (1) Transient brainstem ischemia Current Visit: Yes Status: Acute Code(s): G45.9 - TRANSIENT CEREBRAL ISCHEMIC ATTACK, UNSPECIFIED SNOMED Code(s): 672709391 (2) Numbness and tingling of left side of face Current Visit: Yes Status: Acute Code(s): R20.0 - ANESTHESIA OF SKIN; R20.2 - PARESTHESIA OF SKIN SNOMED Code(s): 31673741 (3) Dizziness Current Visit: Yes Status: Acute Code(s): R42 - DIZZINESS AND GIDDINESS SNOMED Code(s): 116661416 (4) Neck pain Current Visit: Yes Status: Acute Code(s): M54.2 - CERVICALGIA SNOMED Code( s): 22175205 Plan: This patient is a 62-year-old male who was admitted yesterday for symptoms of TIA. He presented with symptoms of left-sided facial numbness and dizziness. He was sent for MRI of the brain today which came back negative for any evidence of acute stroke. Specifically no evidence of brainstem ischemia. He was complaining of neck pain and was evaluated by orthopedic surgery today and treatment options were discussed with him. They are recommending he be switched to prednisone. He is to follow-up in the outpatient orthopedic clinic in one week. He was prescribed a cervical soft collar however this is made his neck pain worse. He should follow-up with orthopedic surgery in the outpatient setting in one week. We discussed the results of the MRI today with the patient. His overall prognosis remains fair. We would recommend that he be placed on aspirin daily for secondary stroke prevention. We've discussed all of the test results today with the patient in detail. He may follow-up in the outpatient neurology clinic in 1-2 weeks. Overall prognosis at this time remains guarded.
--- NOTE | 2017-10-25 21:42 | P.PN ---
Subjective Progress Note Date: 10/25/17 Principal diagnosis: Dizziness and cervical disc disease Patient is a 62-year-old male with a known history of rheumatoid arthritis, hypertension and history of renal cancer with left kidney removal came to ER with complaints of dizziness and neck pain since yesterday. Patient was trying to put a sink in the cabinet and he thinks he might have Bumped His Neck on 2 since then he's been having dizziness and worsening neck pain as well. Patient was also having numbness/tingling in the left side of face. Patient also is feeling like room spinning. Patient today was unable to get out of the bed and was feeling very dizzy and he threw up when he went to the bathroom. He came to the hospital for further evaluation. He denied any weakness in the extremities. No fever no chills. No chest pain or shortness of breath. CT head showed no acute intracranial process. Chest x-ray showed no acute cardio pulmonary process EKG showed sinus bradycardia Cervical spine x-ray showed multilevel degenerative disc disease with severe facet arthropathy. Multilevel bilateral neural foraminal encroachment.. Patient says that he had cardiac workup done due to dizziness and had 2-D echo and stress test. Patient was supposed to get even and monitor but he never was never able to follow-up of breath. 10/25/2017 Patient is still complaining of left-sided numbness of face but is improving. Patient was placed on neck collar. MRI of the brain was done showed no acute intracranial abnormality. Mild ethmoid sinusitis. Otherwise patient was seen by orthopedic surgery. Patient was started on steroids at this time. Otherwise continued on pain management. Neurology is following. No chest pain or shortness of breath. No nausea vomiting or abdominal pain. All other review of systems negative except the above Current medications reviewed. Objective - Vital Signs Vital signs: Vital Signs Temp 97.9 F 10/25/17 15:15 Pulse 61 10/25/17 15:15 Resp 18 10/25/17 15:15 BP 144/71 10/25/17 15:15 Pulse Ox 96 10/25/17 15:15 Intake & Output 10/25/17 10/25/17 10/26/17 06:59 18:59 06:59 Intake Total 820 Balance 820 Weight 96.1 kg Intake: Oral 820 Other: Voiding Method Urinal # Voids 1 2 - Exam PHYSICAL EXAMINATION: Patient is lying in the bed comfortably, no acute distress, awake alert and oriented.. HEENT: Normocephalic. Patient is on neck collar. Pupils reactive. Nostrils clear. Oral cavity is moist. Ears reveal no drainage. Neck reveals no JVD, carotid bruits, or thyromegaly. CHEST EXAMINATION: Trachea is central. Symmetrical expansion. Lung ying clear to auscultation and percussion. CARDIAC: Normal S1, S2 with no gallops. No murmurs ABDOMEN: Soft. Bowel sounds normal. No organomegaly. No abdominal bruits. Extremities: reveal no edema. No clubbing or cyanosis Neurologically awake, alert, oriented x3 with well-coordinated movements. No focal deficits noted Skin: No rash or skin lesions. Psychiatric: Cooperative. Nonsuicidal Musculoskeletal: No joint swelling or deformity. Normal range of motion. - Labs CBC & Chem 7: 10/24/17 12:07 10/24/17 12:07 Labs: Abnormal Lab Results - Last 24 Hours (Table) 10/25/17 Range/Units 05:38 Triglycerides 159 H (<150) mg/dL HDL Cholesterol 33 L (40-60) mg/dL Assessment and Plan Assessment: Neck pain with dizziness followed by twisted movement. Likely due to spinal stenosis and cervical disc disease Possible TIA Multilevel cervical neck arthropathy Hypertension History of renal cell carcinoma status post nephrectomy Rheumatoid arthritis Previous history of smoking DVT prophylaxis Plan: Patient will be started on aspirin. Patient had CT head done in the ER showed no acute process. MRI of the brain showed no intracranial abnormality. Neurology and orthopedic surgery has seen the patient. Patient was started on prednisone. Continue the pain management. We'll continue to follow closely and start back on home medications. Further recommendations based on the clinical course. Time with Patient: Greater than 30
[2017-10-26] MEDS: CYANOCOBALAMIN 500 MCG TAB PO SCH (08:34)
[2017-10-26] MEDS ORDERED: predniSONE 20 MG TAB PO SCH (09:00)
[2017-10-26 09:39] VITALS: BP 131/63; PULSE 63; TEMP 96.1
[2017-10-26] MEDS: MULTIVITAMINS, THERA 1 EACH TAB PO SCH (11:44)
--- NOTE | 2017-10-26 17:33 | DS ---
DISCHARGE SUMMARY DATE OF SERVICE: 10/26/2017. FINAL DIAGNOSES: 1. Neck pain, dizziness, possibly cervical spine disc disease and spinal stenosis. 2. Transient ischemic attack. 3. Multilevel cervical neck arthropathy. 4. Hypertension. 5. History of renal cell carcinoma status post nephrectomy. 6. Rheumatoid arthritis. 7. History of nicotine dependence. 8. Deep vein thrombosis prophylaxis. DISCHARGE DISPOSITION: Patient will be discharged in stable condition with guarded prognosis. HISTORY OF PRESENT ILLNESS: This 62-year-old gentleman with a past medical history of multiple medical problems was admitted with dizziness and cervical disc disease. Patient was treated symptomatically. The steroids were given. Dr. Ko saw the patient. On exam, vitals are stable. Cardiovascular: S1, S2. Abdomen soft. Nervous system: No focal deficits. A brain MRI, MRA showed no acute abnormality. DISCHARGE ADVICE AND MEDICATIONS: 1. Diet is cardiac diet. 2. Activity limited until followup. 3. Follow up with Dr. Thomas in 2-3 days. 4. Follow up with Dr. Maynor Ruiz as advised. 5. Follow up with Dr. Ko as recommended. MEDICATIONS ARE: 1. Vitamin B12 1000 mcg p.o. daily. 2. Pepcid 10 mg p.o. daily. 3. Motrin 600 mg p.o. q8h p.r.n. 4. Multivitamins 1 p.o. daily. 5. Prednisone that will be 20 mg 3 tabs daily for 4 days, 2 tabs daily for 4 days and 1 tabs daily 4 days per Orthopedic surgery. 6. Ultram 50 mg p.o. q8h p.r.n. Followup labs with Dr. Thomas. Once again, the patient is being discharged in stable condition with guarded prognosis. MMODL / IJN: [id number] /
== END 2017-10-26 12:26 | disposition home or self-care (01) ==
LOC: EC 11:13 → 6SEL 16:16 → UNDODISOB 17:54
PROVIDERS: ADMIT Hospitalist; ATTEND Hospitalist
DX: R42 Dizziness and giddiness (principal); G45.9 Transient cerebral ischemic attack, unspecified; M47.812 Spondylosis without myelopathy or radiculopathy, cervical region; M48.02 Spinal stenosis, cervical region; M50.823 Other cervical disc disorders at C6-C7 level; M50.322 Other cervical disc degeneration at C5-C6 level; J32.2 Chronic ethmoidal sinusitis; M06.9 Rheumatoid arthritis, unspecified; I10 Essential (primary) hypertension; E78.5 Hyperlipidemia, unspecified; F17.200 Nicotine dependence, unspecified, uncomplicated; X50.1XXA Overexertion from prolonged static or awkward postures, initial encounter; Y93.E9 Activity, other interior property and clothing maintenance; Y92.009 Unspecified place in unspecified non-institutional (private) residence as the place of occurrence of the external cause; Z85.528 Personal history of other malignant neoplasm of kidney; Z87.81 Personal history of (healed) traumatic fracture; Z87.01 Personal history of pneumonia (recurrent); Z80.9 Family history of malignant neoplasm, unspecified
CPT/HCPCS: 99285 ×2; 96361 ×8; 96374; 96375; 36415; 93005; 80061; 80053; 84484; 85025; 85610; 81003; 72050; 71046; 93880; 70450; 70551; G0378 ×3; J2930

== ENCOUNTER 2020-05-25 01:01 | Inpatient (IN) | payer MEDICARE ==
--- NOTE | 2020-05-25 01:11 | ED ---
Chest Pain HPI - General Stated Complaint: Chest Pain Time Seen by Provider: 05/25/20 01:03 Source: EMS, RN notes reviewed, old records reviewed Mode of arrival: ambulatory Limitations: no limitations - History of Present Illness Initial Comments: This is a 64-year-old male DF for evaluation. Patient presents for severe chest pain diaphoresis shortness of breath heaviness on the left side of his chest. Patient has no significant medical history no significant heart history no high blood pressure no high cholesterol no diabetes. Otherwise no recent travel history or sick contacts, patient comes in by EMS in severe distress MD Complaint: chest pain -: days(s) Onset: during rest Pain Location: left chest, epigastric Pain Radiation: LUE, jaw/teeth Severity: moderate, severe Severity scale (1-10): 9 Quality: heaviness Consistency: constant Improves With: nothing Worsens With: nothing Context: recent illness Anginal Symptoms: nausea, dyspnea Other Symptoms: palpitations Treatments Prior to Arrival: none - Related Data Home Medications Medication Instructions Recorded Confirmed Multivitamin/Iron/Folic Acid 1 tab PO DAILY 10/24/17 05/25/20 [Centrum Complete Multivit Tab] traMADol HCL [Ultram] 50 mg PO Q8H PRN 10/24/17 05/25/20 Previous Rx's Medication Instructions Recorded Aspirin 81 mg PO DAILY #30 chew 05/27/20 Atorvastatin [Lipitor] 80 mg PO DAILY #30 tab 05/27/20 Metoprolol Tartrate [Lopressor] 12.5 mg PO BID #60 tab 05/27/20 Nitroglycerin Sl Tabs [Nitrostat] 0.4 mg SUBLINGUAL Q5M PRN #20 tab 05/27/20 Ticagrelor [Brilinta] 90 mg PO BID #60 tab 05/27/20 amLODIPine [Norvasc] 5 mg PO DAILY #30 tab 05/27/20 lisinopriL [Zestril] 10 mg PO DAILY #30 tab 05/27/20 Allergies Allergy/AdvReac Type Severity Reaction Status Date / Time No Known Allergies Allergy Verified 05/25/20 08:35 Review of Systems ROS Statement: Those systems with pertinent positive or pertinent negative responses have been documented in the HPI. ROS Other: All systems not noted in ROS Statement are negative. EKG Findings - EKG Comments: EKG Findings:: EKG is sinus rhythm rate of 66. AL 134 QRS 94 QTC 444 Past Medical History Past Medical History: Pneumonia, Rheumatoid Arthritis (RA) Additional Past Medical History / Comment(s): 01-09-15-FX RT HIP d/t fall, HX RT KIDNEY CA- no chemo, no radiation. hx of shingels approx 3 years ago affected lt side of face History of Any Multi-Drug Resistant Organisms: None Reported Past Surgical History: Joint Replacement, Orthopedic Surgery Additional Past Surgical History / Comment(s): RT NEPHRECTOMY,RT KNEE REPLACE, ROT CUFF REPAIR LT,LT HAND REMOVAL OF A NAIL,MULT ORTHOSCOPIC SURG MEGAN KNEES, 01-17-15 CLOSED REDUCTION/PINNING OF RT HIP Past Anesthesia/Blood Transfusion Reactions: Motion Sickness, Postoperative Nausea & Vomiting (PONV) Additional Past Anesthesia/Blood Transfusion Reaction / Comment(s): never recieved blood. Past Psychological History: No Psychological Hx Reported Smoking Status: Former smoker Past Alcohol Use History: Daily Past Drug Use History: None Reported - Past Family History Mother Family Medical History: Cancer Father Family Medical History: Cancer General Exam Limitations: no limitations General appearance: alert, in no apparent distress, anxious, in distress Head exam: Present: atraumatic, normocephalic, normal inspection Eye exam: Present: normal appearance, PERRL, EOMI. Absent: scleral icterus, conjunctival injection, periorbital swelling ENT exam: Present: normal exam, mucous membranes moist Neck exam: Present: normal inspection. Absent: tenderness, meningismus, lymphadenopathy Respiratory exam: Present: normal lung sounds bilaterally. Absent: respiratory distress, wheezes, rales, rhonchi, stridor Cardiovascular Exam: Present: regular rate, normal rhythm, normal heart sounds. Absent: systolic murmur, diastolic murmur, rubs, gallop, clicks GI/Abdominal exam: Present: soft, normal bowel sounds. Absent: distended, tenderness, guarding, rebound, rigid Extremities exam: Present: normal inspection, full ROM, normal capillary refill. Absent: tenderness, pedal edema, joint swelling, calf tenderness Back exam: Present: normal inspection Neurological exam: Present: alert, oriented X3, CN II-XII intact Psychiatric exam: Present: normal affect, normal mood Skin exam: Present: warm, dry, intact, normal color. 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 Patient aspirin heparin here in the ER and transported directly to [facility] Critical Care Time Critical Care Time: Yes Total Critical Care Time: 31 Disposition Clinical Impression: ST elevation myocardial infarction (STEMI) Disposition: ADMITTED IP TO THIS HOSP Condition: Serious Is patient prescribed a controlled substance at d/c from ED?: No
[2020-05-25] MEDS ORDERED: MORPHINE SULFATE 4 MG/ML SYRINGE IV PRN (01:24)
[2020-05-25] MEDS ORDERED: HEPARIN SODIUM,PORCINE 5,000 UNIT/ML 1 ML VIAL IV PRN (01:24)
[2020-05-25] MEDS ORDERED: ASPIRIN 81 MG PO STA (01:24)
[2020-05-25] MEDS ORDERED: HEPARIN SODIUM,PORCINE 5,000 UNIT/ML 1 ML VIAL IV ONE (01:24)
[2020-05-25] MEDS ORDERED: NITROGLYCERIN SL TABS 0.4 MG TAB SUBLINGUAL PRN ×2 (01:24→03:54)
[2020-05-25 01:25] LABS: Basophils % (A) 1 %; Eosinophils # (A) 0.2 k/uL (0-0.7); Eosinophils % (A) 3 %; HGB 14.8 gm/dL (13.0-17.5); Lymphocytes # (A) 1.2 k/uL (1.0-4.8); Lymphocytes % (A) 15 %; MCH 31.4 pg (25.0-35.0); MCHC 34.4 g/dL (31.0-37.0); MCV 91.3 fL (80.0-100.0); Monocytes # (A) 0.5 k/uL (0-1.0); Monocytes % (A) 6 %; Neutrophils % (A) 74 %; Platelet Count 164 k/uL (150-450); RBC 4.71 m/uL (4.30-5.90); RDW 12.3 % (11.5-15.5)
[2020-05-25] MEDS ORDERED: HEPARIN SOD,PORK IN 0.45% NACL 25,000 UNIT in 0.45% NACL 1 250ML.BAG IV SCH (01:30)
[2020-05-25 01:36] LABS: INR 0.9 (<1.2); Partial Thromboplastin Time 22.2 sec (22.0-30.0); Prothrombin Time 10.2 sec (9.0-12.0)
--- NOTE | 2020-05-25 01:49 | XR ---
EXAM: XR Chest, 1 View CLINICAL HISTORY: ITS.REASON XR Reason: chest pain TECHNIQUE: Frontal view of the chest. COMPARISON: 10/24/2017 FINDINGS: Lungs: Bibasilar hazy opacities. Pleural space: No pleural effusion. No pneumothorax. Heart: Unremarkable. No cardiomegaly. Mediastinum: Unremarkable. Bones/joints: Unremarkable. IMPRESSION: Bibasilar hazy opacities which may be due to aspiration or infection.
[2020-05-25 01:53] LABS: ALT 19 U/L (4-49); AST 24 U/L (17-59); African American GFR (CKD) >90 (>60 ml/min/1.73 sqM); Albumin 3.8 g/dL (3.5-5.0); Alkaline Phosphatase 84 U/L (38-126); Anion Gap 7 mmol/L; Blood Urea Nitrogen 20 mg/dL (9-20); Calcium 9.1 mg/dL (8.4-10.2); Carbon Dioxide 21 mmol/L (22-30); Chloride 113 mmol/L (98-107); Creatine Kinase 124 U/L (55-170); Glucose 131 mg/dL (74-99); Lipase 166 U/L (23-300); Magnesium 1.9 mg/dL (1.6-2.3); Non-African American GFR(CKD) >90 (>60 ml/min/1.73 sqM); Potassium 4.2 mmol/L (3.5-5.1); Sodium 141 mmol/L (137-145); Total Bilirubin 0.4 mg/dL (0.2-1.3); Total Protein 6.4 g/dL (6.3-8.2)
[2020-05-25] MEDS ORDERED: VERAPAMIL 2.5 MG/ML 2 ML AMP ONE (02:01)
[2020-05-25] MEDS ORDERED: LIDOCAINE 1% INJ 10MG/ML (20 ML MDV) ONE (02:01)
[2020-05-25] MEDS ORDERED: HEPARIN SODIUM 1,000 UN/ML (10ML VL) ONE (02:02)
[2020-05-25] MEDS ORDERED: fentaNYL (PF) 50 MCG/ML 2 ML AMP ONE ×2 (02:02→03:29)
--- NOTE | 2020-05-25 02:02 | P.CRDCN ---
History of Present Illness History of present illness: HISTORY OF PRESENTING ILLNESS This is a pleasant 64-year-old male past medical history significant for tobacco abuse, arthritis, apparent right kidney cancer status post nephrectomy. Patient presents secondary to left-sided chest pain and pressure associated with some nausea and shortness breath which started last night after a fight with his dog around 6:30 PM. He denies similar episodes in past. He did have a heart catheterization approximately 8 years ago in [place] however is unsure of the results and apparently this was performed before his orthopedic surgery. Denies any hematochezia or melena. Admits that additional episodes of palpitations and lightheadedness however these have not been ongoing currently. EKG was checked which showed minimal ST elevation inferiorly with mild ST depressions laterally and therefore catheterization lab was activated. DIAGNOSTICS EKG reveals sinus rhythm, normal axis, 0.[address] elevation inferiorly with ST depressions laterally. Chest xray by basilar hazy opacities which may be due to aspiration or infection. Laboratory reviewed, white blood cell 8.0 hemoglobin 14.8 platelets 164, creatinine 0.86, troponin pending. Current cardiac medications include aspirin 325 mg daily, Lipitor 80 mg daily, heparin 4000 units given, metoprolol 25 mg twice a day. REVIEW OF SYSTEMS At the time of my exam: CONSTITUTIONAL: Denies fever or chills. CARDIOVASCULAR: +chest pain, +shortness of breath, no orthopnea, PND or palpitations. RESPIRATORY: Denies cough. GASTROINTESTINAL: Denies abdominal pain, diarrhea, constipation, +nausea, no vomiting. MUSCULOSKELETAL: Denies myalgias. NEUROLOGIC: Denies numbness, tingling or weakness. ENDOCRINE: Denies fatigue, weight change, polydipsia or polyurina. GENITOURINARY: Denies burning, hematuria or urgency with micturation. HEMATOLOGIC: Denies history of anemia or bleeding. PHYSICAL EXAMINATION Blood pressure 160/92 heart rate 63 afebrile and maintaining oxygen saturation on 2 L nasal cannula. CONSTITUTIONAL: Mildly distress. HEENT: Head is normocephalic. Pupils are equal, round. Sclerae anicteric. Mucous membranes of the mouth are moist. No JVD. No carotid bruit. CHEST EXAMINATION: Lungs are clear to auscultation. No chest wall tenderness is noted on palpation or with deep breathing. HEART EXAMINATION: Regular rate and rhythm. S1, S2 heard. No murmurs, gallops or rub. ABDOMEN: Soft, nontender. Positive bowel sounds. EXTREMITIES: 2+ peripheral pulses, no lower extremity edema and no calf tenderness. NEUROLOGIC EXAMINATION: Patient is awake, alert and oriented x3. ASSESSMENT 1. STEMI 2. Chest pain related to #1 3. Tobacco abuse 4. Elevated blood pressure, no history of hypertension 5. Status post nephrectomy for apparent kidney cancer 6. Episodes of palpitations and lightheadedness, chronic PLAN Catheterization lab activated. Patient does have minimal ST elevations with some reciprocal changes and ongoing chest pain. Emergent heart catheterization and PCI if needed. Check 2-D echo. Further recommendations to follow. Past Medical History Past Medical History: Pneumonia, Rheumatoid Arthritis (RA) Additional Past Medical History / Comment(s): 01-09-15-FX RT HIP d/t fall, HX RT KIDNEY CA- no chemo, no radiation. hx of shingels approx 3 years ago affected lt side of face History of Any Multi-Drug Resistant Organisms: None Reported Past Surgical History: Joint Replacement, Orthopedic Surgery Additional Past Surgical History / Comment(s): RT NEPHRECTOMY,RT KNEE REPLACE, ROT CUFF REPAIR LT,LT HAND REMOVAL OF A NAIL,MULT ORTHOSCOPIC SURG MEGAN KNEES, 01-17-15 CLOSED REDUCTION/PINNING OF RT HIP Past Anesthesia/Blood Transfusion Reactions: Motion Sickness, Postoperative Nausea & Vomiting (PONV) Additional Past Anesthesia/Blood Transfusion Reaction / Comment(s): never recieved blood. Past Psychological History: No Psychological Hx Reported Smoking Status: Former smoker Past Alcohol Use History: Daily Past Drug Use History: None Reported - Past Family History Mother Family Medical History: Cancer Father Family Medical History: Cancer Medications and Allergies Home Medications Medication Instructions Recorded Confirmed Type Cyanocobalamin (Vitamin B-12) 1,000 mcg PO DAILY 10/24/17 10/24/17 History [Vitamin B-12] Ibuprofen [Motrin] 600 mg PO Q8HR PRN 10/24/17 10/24/17 History Multivitamin/Iron/Folic Acid 1 tab PO DAILY 10/24/17 10/24/17 History [Centrum Complete Multivit Tab] traMADol HCL [Ultram] 50 mg PO Q8H PRN 10/24/17 10/24/17 History Famotidine [Pepcid AC] 10 mg PO DAILY #30 tablet 06/22/18 Rx predniSONE [Deltasone] 20 mg PO DIRECTED #24 tab 10/25/17 Rx Allergies Allergy/AdvReac Type Severity Reaction Status Date / Time No Known Allergies Allergy Verified 05/25/20 01:10 Physical Exam Vitals: Vital Signs Temp Pulse Pulse Resp BP Pulse Ox 05/25/20 01:45 63 16 160/92 96 05/25/20 01:25 64 18 165/97 98 05/25/20 01:22 63 18 96 05/25/20 01:15 63 18 145/119 97 05/25/20 01:13 63 05/25/20 01:02 98.1 F 67 18 170/102 97 Intake and Output 05/24/20 05/24/20 05/25/20 14:59 22:59 06:59 Other: Weight 89.811 kg Results 05/25/20 01:11 05/25/20 01:05 Cardiac Enzymes 05/25/20 Range/Units 01:05 AST 24 (17-59) U/L Coagulation 05/25/20 Range/Units 01:05 PT 10.2 (9.0-12.0) sec APTT 22.2 (22.0-30.0) sec CBC 05/25/20 Range/Units 01:11 WBC 8.0 (3.8-10.6) k/uL RBC 4.71 (4.30-5.90) m/uL Hgb 14.8 (13.0-17.5) gm/dL Hct 43.0 (39.0-53.0) % Plt Count 164 (150-450) k/uL Comprehensive Metabolic Panel 05/25/20 Range/Units 01:05 Sodium 141 (137-145) mmol/L Potassium 4.2 (3.5-5.1) mmol/L Chloride 113 H (98-107) mmol/L Carbon Dioxide 21 L (22-30) mmol/L BUN 20 (9-20) mg/dL Creatinine 0.86 (0.66-1.25) mg/dL Glucose 131 H (74-99) mg/dL Calcium 9.1 (8.4-10.2) mg/dL AST 24 (17-59) U/L ALT 19 (4-49) U/L Alkaline Phosphatase 84 (38-126) U/L Total Protein 6.4 (6.3-8.2) g/dL Albumin 3.8 (3.5-5.0) g/dL Current Medications Generic Name Dose Route Start Last Admin Trade Name Freq PRN Reason Stop Dose Admin Aspirin 325 mg 05/26/20 09:00 Aspirin 325 Mg Tab PO DAILY [facility] Atorvastatin Calcium 80 mg 05/25/20 09:00 Atorvastatin 80 Mg Tab PO DAILY [facility] Heparin Sodium (Porcine) 0 unit 05/25/20 01:24 Heparin Sodium,Porcine 5,000 Unit/Ml 1 Ml Vial IV Q6HR PRN Low PTT Protocol Heparin Sodium/Sodium Chloride 250 mls @ 10.005 mls/hr 05/25/20 01:30 05/25/20 01:41 25,000 unit/ Sodium Chloride IV 11.14 units/kg/hr .Q24H NATHAN 10.005 mls/hr Administration Protocol 11.14 UNITS/KG/HR Metoprolol Tartrate 25 mg 05/25/20 09:00 Metoprolol Tartrate 25 Mg Tab PO BID [facility] Morphine Sulfate 4 mg 05/25/20 01:24 Morphine Sulfate 4 Mg/Ml Syringe IV Q4HR PRN Chest Pain Nitroglycerin 0.4 mg 05/25/20 01:24 Nitroglycerin Sl Tabs 0.4 Mg Tab SUBLINGUAL Q5M PRN Chest Pain Intake and Output 05/24/20 05/24/20 05/25/20 14:59 22:59 06:59 Other: Weight 89.811 kg Patient Weight 05/25/20 06:59 Weight 89.811 kg 05/25/20 01:11 05/25/20 01:05
[2020-05-25 02:04] LABS: Creatine Kinase MB 6.9 ng/mL (0.0-2.4)
[2020-05-25] MEDS ORDERED: LIDOCAINE 1% INJ 10MG/ML (20 ML MDV) SQ ONE (02:08)
[2020-05-25] MEDS: fentaNYL (PF) 50 MCG/ML 2 ML AMP IV ONE ×3 (02:13→02:52)
[2020-05-25] MEDS: MIDAZOLAM 2 MG/2 ML VIAL IV ONE ×3 (02:13→02:53)
[2020-05-25] MEDS ORDERED: VERAPAMIL SYRINGE (5 MG/10 ML) INTRAARTER ONE (02:14)
[2020-05-25] MEDS: NITROGLYCERIN 1000MCG/10ML SYRINGE INTRACORON ONE ×4 (02:19→03:21)
[2020-05-25 02:20] LABS: Troponin I 0.479 ng/mL (0.000-0.034)
[2020-05-25] MEDS ORDERED: HEPARIN SODIUM 1,000 UN/ML (10ML VL) IV ONE (02:21)
[2020-05-25] MEDS ORDERED: IV FLUID CONTINUATION 1,000 ML IV ONE (02:22)
[2020-05-25] MEDS ORDERED: TICAGRELOR 90 MG TAB ONE (02:23)
[2020-05-25] MEDS ORDERED: TICAGRELOR 90 MG TAB PO ONE (02:25)
[2020-05-25] MEDS ORDERED: IOPAMIDOL-370 125ML BTL INJ ONE ×2 (02:43→03:20)
[2020-05-25] MEDS ORDERED: niCARdipine 25 MG/10 ML VIAL ONE (02:48)
[2020-05-25] MEDS ORDERED: TIROFIBAN BOLUS 12.5MG/250 ML BAG IV ONE (02:58)
[2020-05-25] MEDS ORDERED: TIROFIBAN 12.5MG-250ML NS 250 ML IV ONE (02:59)
[2020-05-25] MEDS: niCARdipine Syringe (1,000 mcg/10 mL) INTRACORON ONE ×3 (03:00→03:21)
[2020-05-25] MEDS ORDERED: fentaNYL (PF) 50 MCG/ML 2 ML AMP IVP ONE (03:31)
[2020-05-25] MEDS ORDERED: IOPAMIDOL-370 100ML BTL INJ ONE (03:34)
[2020-05-25] MEDS ORDERED: NITROGLYCERIN-D5W PMX 50 MG in DEXTROSE/WATER 1 250ML.BAG IV ONE (03:43)
[2020-05-25] MEDS ORDERED: HYDROmorphone 0.5 MG/0.5 ML SYRINGE IVP PRN (03:54)
[2020-05-25] MEDS ORDERED: ATROPINE SULFATE 0.1 MG/ML 10ML SYRINGE IV PRN (03:54)
[2020-05-25] MEDS ORDERED: RX INFO: IV CONTRAST WAS GIVEN 1 EACH MISC MISCELLANE PRN (03:54)
[2020-05-25] MEDS ORDERED: ZOLPIDEM 5 MG TAB PO PRN (03:54)
[2020-05-25] MEDS ORDERED: MAG HYDROX/AL HYDROX/SIMETH 30 ML CUP PO PRN (03:54)
--- NOTE | 2020-05-25 03:54 | P.PRCINT ---
Percutaneous Coronary Int. - Percutaneous Coronary Intervention Percutaneous Coronary Intervention: PROCEDURES PERFORMED: Bilateral coronary angiography, PCI of proximal RCA with a 3.25 x 18mm Xience YANICK, post dilated with a 3.5 NC balloon, PCI of mid RCA with 3.0 x 12mm Xience YANICK, intracoronary nitroglycerin and intracoronary nicardipine, IVUS of RCA INDICATION: Inferior STEMI HISTORY: Patient is a pleasant 64-year-old male with history of tobacco abuse, kidney cancer status post nephrectomy who presented with chest pain or the prior 6 hours. Patient was found to have mild inferior ST elevations and therefore was brought to the catheterization lab. CONSENT:I have discussed the risks, benefits and alternative therapies for the above-mentioned procedure and for both sedation/analgesia as well as necessary blood product administration, if indicated, as they pertain to this patient. The patient has indicated understanding and acceptance of the risks and procedures discussed. PROCEDURE: After the risks, benefits and alternatives of the above mentioned procedure explained in detail with the patient, informed consent was obtained. Patient was taken to the catheterization lab and prepped and draped in usual fashion. 1% lidocaine was used to anesthetize the right radial artery. A 6- Bulgarian sheath was placed in the right radial artery using modified Seldinger technique. Left coronary angiography was performed with a 5-Bulgarian JL 3.5 catheter. Initially a 6Fr AL 1.0 guide was advanced however was noted to be too deep seated with a proximal lesion and therefore a 5Fr FR5 guide catheter was used to engage the RCA. Heparin was given for an ACT greater than 250. A 0.014 BMW wire was advanced into the distal RCA. The proximal lesion was predilated with a 2.25 x 12 mm balloon. Next a 3.0 x 12 mm Xience YANICK was placed in the mid RCA. Next a 3.25 x 18 mm Xience YANICK was placed at the proxi mal lesion. There was diffuse thrombosis of the proximal lesion and therefore Aggrastat bolus and drip was started. Patient's chest pain had briefly improved and then worsened after stent placement with some no reflow. The proximal stent was post dilated with a 3.5 noncompliant balloon. Numerous doses of intracoronary nicardipine was given with modest improvement in chest pain. I this was performed which showed no dissection, good stent apposition, mild diffuse disease of the proximal mid RCA with reference vessel appearing to be 3.0 in the midportion and up to 3.5 proximally. The wire was then pulled and final angiograms were performed. Prevention there were tandem 90% proximally and 90% mid stenoses with KATELYNN 2 flow and post intervention there was less than 10% stenoses with KATELYNN 3 flow. The right radial sheath was removed and a TR band was placed with hemostasis achieved. The patient tolerated the procedure well however did still have persistent chest pain but improvement in ST elevations by the end of the procedure and was placed on a nitroglycerin drip and Aggrastat drip. Patient was transported back to the post catheterization holding area in stable condition. Conscious Sedation: Patient was monitored under the direct supervision of vision of myself for conscious sedation using Versed and fentanyl for a total duration of 122 minutes HEMODYNAMICS: Aorta: 134/76 SELECTIVE CORONARY ARTERIOGRAPHY: LEFT MAIN: The left main is a large caliber vessel which bifurcates into the LAD and circumflex. There is no significant stenosis. LEFT ANTERIOR DESCENDING CORONARY ARTERY: LAD is a large caliber vessel which wraps around to the apex. There are mild luminal irregularities of the mid LAD. There is bridging of the mid LAD noted. LEFT CIRCUMFLEX CORONARY ARTERY: Left circumflex is a moderate caliber vessel with a mid 30% circumflex stenosis. It gives off a moderate caliber OM branches. RIGHT CORONARY ARTERY: The right coronary artery is a moderate to large caliber vessel which gives off a PDA and PLV branch and is the dominant vessel. There is a proximal RCA 90% stenosis and a mid RCA 90% stenosis. FINAL IMPRESSION: 1. Coronary artery disease as described above with tandem 90% stenoses of the RCA and mild disease of the left system. 2. Status post successful PCI of proximal RCA with a 3.25 x 18mm Xience YANICK, PCI of mid RCA with 3.0 x 12mm Xience YANICK 3. No reflow with excellent stent apposition and sizing on IVUS without dissection. PLAN: 1. Aggressive risk factor modification per most recent ACC/AHA guidelines. 2. Aggrastat drip for 12 hours and nitroglycerin drip for pain control. 3. Continue dual antiplatelets for 12 months. 4. Tobacco cessation.
[2020-05-25] MEDS ORDERED: NITROGLYCERIN-D5W PMX 50 MG in DEXTROSE/WATER 1 250ML.BAG IV SCH (04:00)
[2020-05-25 04:09] LABS: Glucose,Whole Blood 131 mg/dL (75-99)
[2020-05-25 04:18] LABS: Mean Platelet Volume 8.1; Platelet Count 163 k/uL (150-450)
[2020-05-25] MEDS ORDERED: METOPROLOL TARTRATE 25 MG TAB PO SCH (09:00)
[2020-05-25] MEDS ORDERED: lisinopriL 5 MG TAB PO SCH (09:00)
[2020-05-25] MEDS: ATORVASTATIN 80 MG TAB PO SCH (09:11)
[2020-05-25] MEDS: ASPIRIN 81 MG PO SCH (09:11)
[2020-05-25] MEDS: HEPARIN SODIUM,PORCINE 5,000 UNIT/ML 1 ML VIAL SQ SCH ×2 (09:12→21:36)
[2020-05-25] MEDS: TICAGRELOR 90 MG TAB PO SCH ×2 (09:12→21:33)
[2020-05-25] MEDS: FAMOTIDINE 20 MG/2 ML VIAL IV SCH ×2 (09:12→21:33)
--- NOTE | 2020-05-25 09:20 | P.HPIM ---
History of Present Illness This is a pleasant 64 years old male with past medical history of rheumatoid arthritis. Cigarette smoker. He is a patient of Dr. Thomas. Presents because of chest pain of one-day duration, central and to the left chest radiating to the left arm, left leg severe pain.On the patient's were stable heart rate is running around 50-57. Labs show an unremarkable CBC, INR 0.9, BMP is unremarkable liver enzymes not elevated. Patient is with high troponin first one is 0.4, second one was 2.9, proBNP is normal at 184. Chest x-ray: Bibasilar hazy opacity which may be due to aspiration or infection EKG showing normal sinus rhythm at [address] elevation at that II,III and aVF Patient underwent emergency coronary artery angiogram showing 90% stenosis of the RCA status post PCI of the proximal RCA and mid RCA. Patient currently is chest pain free, he had little dyspnea this morning with a third is due to anxiety. He denies coughing. No change in urine or bowel habits. No fever. He smokes about three quarters of a pack per day and now he is decided to quit, he declined nicotine patch. Occasional alcohol drinker with no illicit drugs Also patient denies vomiting, no recent choking while eating or aspiration Review of Systems CONSTITUTIONAL: No fever, no malaise, no fatigue. HEENT: No recent visual problems or hearing problems. Denied any sore throat. CARDIOVASCULAR: No orthopnea, PND, no palpitations, no syncope. PULMONARY: no cough, no hemoptysis. GASTROINTESTINAL: No diarrhea, no nausea, no vomiting, no abdominal pain. Normoactive bowel sounds. NEUROLOGICAL: No headaches, no weakness, no numbness. HEMATOLOGICAL: Denies any bleeding or petechiae. GENITOURINARY: Denies any burning micturition, frequency, or urgency. MUSCULOSKELETAL/RHEUMATOLOGICAL: Denies any joint pain, swelling, or any muscle pain. ENDOCRINE: Denies any polyuria or polydipsia. Past Medical History Past Medical History: Pneumonia, Rheumatoid Arthritis (RA) Additional Past Medical History / Comment(s): 9-6-15-FX RT HIP d/t fall, HX RT KIDNEY CA- no chemo, no radiation. hx of shingels approx 3 years ago affected lt side of face History of Any Multi-Drug Resistant Organisms: None Reported Past Surgical History: Joint Replacement, Orthopedic Surgery Additional Past Surgical History / Comment(s): RT NEPHRECTOMY,RT KNEE REPLACE, ROT CUFF REPAIR LT,LT HAND REMOVAL OF A NAIL,MULT ORTHOSCOPIC SURG MEGAN KNEES, 01-17-15 CLOSED REDUCTION/PINNING OF RT HIP Past Anesthesia/Blood Transfusion Reactions: Motion Sickness, Postoperative Nausea & Vomiting (PONV) Additional Past Anesthesia/Blood Transfusion Reaction / Comment(s): never recieved blood. Past Psychological History: No Psychological Hx Reported Smoking Status: Former smoker Past Alcohol Use History: Daily Past Drug Use History: None Reported - Past Family History Mother Family Medical History: Cancer Father Family Medical History: Cancer Medications and Allergies Home Medications Medication Instructions Recorded Confirmed Type Ibuprofen [Motrin] 600 mg PO Q8HR PRN 10/24/17 05/25/20 History Multivitamin/Iron/Folic Acid 1 tab PO DAILY 10/24/17 05/25/20 History [Centrum Complete Multivit Tab] traMADol HCL [Ultram] 50 mg PO Q8H PRN 10/24/17 05/25/20 History Allergies Allergy/AdvReac Type Severity Reaction Status Date / Time No Known Allergies Allergy Verified 05/25/20 08:35 Physical Exam Vitals: Vital Signs Temp Pulse Pulse Resp BP Pulse Ox 05/25/20 07:00 57 L 16 138/58 97 05/25/20 06:00 52 L 23 145/68 97 05/25/20 05:00 56 L 22 147/80 95 05/25/20 04:00 97.4 F L 59 L 63 18 158/82 94 L 05/25/20 01:50 63 18 97 05/25/20 01:45 63 16 160/92 96 05/25/20 01:25 64 18 165/97 98 05/25/20 01:22 63 18 96 05/25/20 01:15 63 18 145/119 97 05/25/20 01:13 63 05/25/20 01:02 98.1 F 67 18 170/102 97 Intake and Output 05/24/20 05/25/20 05/25/20 22:59 06:59 14:59 Intake Total 168 20 Output Total 650 Balance -482 20 Intake: IV 168 20 normal saline 60 20 Output: Urine 650 Other: Weight 88.5 kg GENERAL: The patient is alert and oriented x3, not in any acute distress. Well developed, well nourished. HEENT: Pupils are round and equally reacting to light. EOMI. No scleral icterus. No conjunctival pallor. Normocephalic, atraumatic. No pharyngeal erythema. No thyromegaly. CARDIOVASCULAR: S1 and S2 present. No murmurs, rubs, or gallops. PULMONARY: Chest is clear to auscultation, no wheezing or crackles. ABDOMEN: Soft, nontender, nondistended, normoactive bowel sounds. No palpable organomegaly. MUSCULOSKELETAL: No joint swelling or deformity. EXTREMITIES: No cyanosis, clubbing, or pedal edema. NEUROLOGICAL: Gross neurological examination did not reveal any focal deficits. SKIN: No rashes. No petechiae Results CBC & Chem 7: 05/25/20 03:58 05/25/20 01:05 Labs: Abnormal Lab Results - Last 24 Hours (Table) 05/25/20 05/25/20 05/25/20 Range/Units 01:05 01:05 03:57 Chloride 113 H (98-107) mmol/L Carbon Dioxide 21 L (22-30) mmol/L Glucose 131 H (74-99) mg/dL POC Glucose (mg/dL) 131 H (75-99) mg/dL CK-MB (CK-2) 6.9 H (0.0-2.4) ng/mL Troponin I 0.479 H* (0.000-0.034) ng/mL 05/25/20 Range/Units 03:58 Chloride (98-107) mmol/L Carbon Dioxide (22-30) mmol/L Glucose (74-99) mg/dL POC Glucose (mg/dL) (75-99) mg/dL CK-MB (CK-2) (0.0-2.4) ng/mL Troponin I 2.950 H* (0.000-0.034) ng/mL Thrombosis Risk Factor Assmnt - Choose All That Apply Each Risk Factor Represents 2 Points: Age 61-74 years Thrombosis Risk Factor Assessment Total Risk Factor Score: 2 Thrombosis Risk Factor Assessment Level: Low Risk Assessment and Plan Assessment: Acute inferior STEMI, status post cardiac cath and PCI of the proximal and mid RCA Nicotine dependence Possible early aspiration pneumonia. Bibasilar hazy opacity which may be due to aspiration or infection seen on the chest x-ray Nicotine dependence History of rheumatoid arthritis Plan: This is a pleasant 64 years old male who presents with STEMI, status post stent placement to the RCA 2. Patient is on aspirin and Brilinta , cardiology team on the case.Importance of aggressive therapy is explained to the patient ex tensively Because of the possible aspiration seen on the chest x-ray we don't ask for swallow evaluation and start the patient on Augmentin and we'll check a procalcitonin Labs and medication were reviewed.. Continue same treatment. Continue with symptomatic treatment. Resume home medication. Monitor lytes and vitals. DVT and GI prophylaxis. Further recommendations depends on the clinical course of the patient DVT prophylaxis: Subcutaneous heparin GI Prophylaxis: Pepcid i discussed with patient and he agrees with the plan
[2020-05-25] MEDS: AMOXIC-POT CLAV 875-125MG 1 EACH TAB PO SCH ×2 (09:34→21:46)
[2020-05-25] MEDS ORDERED: TIROFIBAN 12.5MG-250ML NS 250 ML IV SCH (11:00)
[2020-05-25 11:21] VITALS: BMI 26.4
--- NOTE | 2020-05-25 11:59 | P.PN ---
Subjective Progress Note Date: 05/25/20 This is a 64-year-old gentleman was admitted last night through emergency room with complaints of chest pain for about 6 hours. His EKG showed mild ST-T changes in inferior leads suggestive of acute coronary syndrome and possible inferior wall [place]. Patient had a cardiac catheterization and was found to have 2 tandem lesions in the RCA in the proximal and midportion. Patient had a stent placement by Dr. Agustin. Patient is on aspirin and the lead along with the metoprolol and Lipitor. At the time of my examination patient started complaining of chest pain that was going on for 20 minutes. He claims is the same location as the pain was before the intervention. It increases on deep breathing and also felt better when he sat up. His EKG did not reveal any acute changes. The pain appears slightly atypical, though angina cannot be excluded. Nitroglycerin given only mild relief. Dilaudid helped the pain and patient went back to sleep. We are going to get an echocardiogram to assess LV function and rule out any pericardial effusion. If necessary, a repeat cardiac catheterization may be considered. If it is consistent with pericarditis, we'll may start him on some colchicine. Clinically I don't hear any rubs. Objective - Vital Signs Vital signs: Vital Signs Temp 98 F 05/25/20 08:00 Pulse 55 L 05/25/20 09:00 Resp 19 05/25/20 09:00 BP 174/86 05/25/20 09:00 Pulse Ox 97 05/25/20 09:00 Intake & Output 05/24/20 05/25/20 05/25/20 18:59 06:59 18:59 Intake Total 168 60 Output Total 650 Balance -482 60 Weight 88.5 kg 88.5 kg Intake: IV 168 60 normal saline 60 60 Output: Urine 650 - Exam GENERAL EXAM: Patient is alert and oriented and appears anxious and having some chest pain. Worried the pain was caused by the medications that he swallowed HEENT: Normocephalic. Normal reaction of pupils, equal size, normal range of extraocular motion. No erythema or exudates in the throat. NECK: No masses, no nuchal rigidity. CHEST: No chest wall deformity. LUNGS: Equal air entry with no crackles or wheeze. HEART: S1 and S2 normal with no audible mumurs or gallops. Regular rhythm, femorals equal on both sides.. ABDOMEN: No hepatosplenomegaly, normal bowel sounds, no guarding or rigidity. SKIN: No rashes CENTRAL NERVOUS SYSTEM: No focal deficits. EXTREMITIES: No cyanosis, clubbing or edema. The puncture site: Is soft without any hematoma - Labs CBC & Chem 7: 05/25/20 03:58 05/25/20 01:05 Labs: Abnormal Lab Results - Last 24 Hours (Table) 05/25/20 05/25/20 05/25/20 Range/Units 01:05 01:05 03:57 Chloride 113 H (98-107) mmol/L Carbon Dioxide 21 L (22-30) mmol/L Glucose 131 H (74-99) mg/dL POC Glucose (mg/dL) 131 H (75-99) mg/dL CK-MB (CK-2) 6.9 H (0.0-2.4) ng/mL Troponin I 0.479 H* (0.000-0.034) ng/mL 05/25/20 05/25/20 Range/Units 03:58 07:26 Chloride (98-107) mmol/L Carbon Dioxide (22-30) mmol/L Glucose (74-99) mg/dL POC Glucose (mg/dL) (75-99) mg/dL CK-MB (CK-2) (0.0-2.4) ng/mL Troponin I 2.950 H* 13.200 H* (0.000-0.034) ng/mL Assessment and Plan (1) Hypertension, essential Current Visit: Yes Status: Acute Code(s): I10 - ESSENTIAL (PRIMARY) HYPERTENSION SNOMED Code(s): 03725868 (2) ST elevation myocardial infarction (STEMI) Current Visit: Yes Status: Acute Code(s): I21.3 - ST ELEVATION (STEMI) M YOCARDIAL INFARCTION OF UNSP SITE SNOMED Code(s): 70629979 (3) Cervical disc disease Current Visit: No Status: Acute Code(s): M50.90 - CERVICAL DISC DISORDER, UNSP, UNSPECIFIED CERVICAL REGION SNOMED Code(s): 958872615 Plan: Continue to monitor chest pain. At this point pain is resolved. EKG did not reveal any acute changes. We'll get an echocardiogram done. Continue current medical therapy along with lisinopril. If necessary we can increase the dose of the lisinopril and also add amlodipine.
[2020-05-25] MEDS ORDERED: lisinopriL 5 MG TAB PO STA (13:12)
[2020-05-25] MEDS: METOPROLOL TARTRATE 12.5 MG TAB PO SCH ×2 (13:26→21:37)
[2020-05-25] MEDS: amLODIPine 5 MG TAB PO SCH (13:26)
[2020-05-25] MEDS ORDERED: PSEUDOEPHEDRINE 30 MG TAB PO PRN (20:41)
[2020-05-26 05:19] LABS: Basophils % (A) 0 %; Eosinophils # (A) 0.1 k/uL (0-0.7); Eosinophils % (A) 2 %; HCT 46.7 % (39.0-53.0); Lymphocytes # (A) 1.2 k/uL (1.0-4.8); Lymphocytes % (A) 14 %; MCH 30.1 pg (25.0-35.0); MCHC 32.1 g/dL (31.0-37.0); MCV 93.8 fL (80.0-100.0); Monocytes # (A) 0.6 k/uL (0-1.0); Monocytes % (A) 7 %; Neutrophils # (A) 6.7 k/uL (1.3-7.7); Neutrophils % (A) 76 %; Platelet Count 177 k/uL (150-450); RBC 4.98 m/uL (4.30-5.90); RDW 12.7 % (11.5-15.5); WBC 8.9 k/uL (3.8-10.6)
[2020-05-26 05:52] LABS: ALT 30 U/L (4-49); AST 91 U/L (17-59); African American GFR (CKD) >90 (>60 ml/min/1.73 sqM); Albumin 3.9 g/dL (3.5-5.0); Alkaline Phosphatase 86 U/L (38-126); Anion Gap 5 mmol/L; Blood Urea Nitrogen 14 mg/dL (9-20); Calcium 9.1 mg/dL (8.4-10.2); Carbon Dioxide 25 mmol/L (22-30); Chloride 109 mmol/L (98-107); Cholesterol 150 mg/dL (<200); Glucose 107 mg/dL (74-99); HDL Cholesterol 49 mg/dL (40-60); LDL Cholesterol,Calculated 71 mg/dL (0-99); Non-African American GFR(CKD) 90 (>60 ml/min/1.73 sqM); Potassium 4.2 mmol/L (3.5-5.1); Sodium 139 mmol/L (137-145); Total Bilirubin 0.6 mg/dL (0.2-1.3); Total Protein 6.4 g/dL (6.3-8.2); Triglycerides 149 mg/dL (<150)
--- NOTE | 2020-05-26 08:00 | ECHOF ---
Referral Reason:stemi MEASUREMENTS -------- HEIGHT: 182.9 cm WEIGHT: 88.5 kg BP: 171/86 RVIDd: 3.8 cm (< 3.3) IVSd: 1.6 cm (0.6 - 1.1) LVIDd: 4.7 cm (3.9 - 5.3) LVPWd: 1.5 cm (0.6 - 1.1) IVSs: 1.8 cm LVIDs: 2.8 cm LVPWs: 1.9 cm Ao Diam: 3.0 cm (2.0 - 3.7) AV Cusp: 2.0 cm (1.5 - 2.6) LA Diam: 3.6 cm (2.7 - 3.8) MV E Tristen: 0.73 m/s MV DecT: 215 ms MV A Tristen: 0.80 m/s MV E/A Ratio: 0.91 FINDINGS -------- Sinus rhythm. This was a technically difficult study with suboptimal views. Patient is post cardiac catheterizati on and cannot be in left lateral position. The left ventricular size is normal. There is moderate concentric left ventricular hypertrophy. O verall left ventricular systolic function is low-normal with, an EF between 50 - 55 %. Basal inferi or LV wall motion is hypokinetic. Mid inferior LV wall motion is hypokinetic. The right ventricle is mild to moderately enlarged. The left atrial size is normal. The right atrium is mildly enlarged. 5.0mg of Lumason was utilized for enhancement of images Interatrial septal aneurysm. The aortic valve was not well visualized. There is no evidence of aortic regurgitation. There is no evidence of aortic stenosis. The mitral valve was not well visualized. Mild mitral regurgitation is present. Mild tricuspid regurgitation present. Unable to estimate RVSP due to inadequate TR jet spectral dop pler profile. The pulmonic valve was not well visualized. The aortic root size is normal. IVC Not well visulized. There is no pericardial effusion. CONCLUSIONS -------- 1. This was a technically difficult study with suboptimal views. 2. There is moderate concentric left ventricular hypertrophy. 3. Overall left ventricular systolic function is low-normal with, an EF between 50 - 55 %. 4. Basal inferior LV wall motion is hypokinetic. 5. Mid inferior LV wall motion is hypokinetic. 6. The right ventricle is mild to moderately enlarged. 7. The right atrium is mildly enlarged. 8. Interatrial septal aneurysm. 9. Mild mitral regurgitation is present. 10. Mild tricuspid regurgitation present. PIPE SMOKING MACHINE OPERATOR: Lisa Zamorano RDCS
--- NOTE | 2020-05-26 08:09 | P.PN ---
Subjective Progress Note Date: 05/26/20 This is a 64-year-old gentleman was admitted last night through emergency room with complaints of chest pain for about 6 hours. His EKG showed mild ST-T changes in inferior leads suggestive of acute coronary syndrome and possible inferior wall [place]. Patient had a cardiac catheterization and was found to have 2 tandem lesions in the RCA in the proximal and midportion. Patient had a stent placement by Dr. Agustin. Patient is on aspirin and the lead along with the metoprolol and Lipitor. At the time of my examination patient started complaining of chest pain that was going on for 20 minutes. He claims is the same location as the pain was before the intervention. It increases on deep breathing and also felt better when he sat up. His EKG did not reveal any acute changes. The pain appears slightly atypical, though angina cannot be excluded. Nitroglycerin given only mild relief. Dilaudid helped the pain and patient went back to sleep. We are going to get an echocardiogram to assess LV function and rule out any pericardial effusion. If necessary, a repeat cardiac catheterization may be considered. If it is consistent with pericarditis, we'll may start him on some colchicine. Clinically I don't hear any rubs. 05/26/2019: This patient is a feeling much better. Did not have any chest pain since yesterday. His heart rate is in the 50s and 60s. He is on metoprolol 12.5 g by mouth twice a day. Esterase blood pressure was running high. Currently is on combination of amlodipine and lisinopril 10 mg. His blood pressure seemed to be getting better. Lungs appeared to be clear. Heart is regular. No arrhythmias are noted. Patient is being transferred to telemetry unit. If he continues to be stable, patient be discharged home within next 24 hours. Follow-up with Dr. Agustin. His puncture site in the right wrist syncope soft without any hematoma. Radial pulses bounding. Objective - Vital Signs Vital signs: Vital Signs Temp 98.7 F 05/26/20 04:00 Pulse 63 05/26/20 07:00 Resp 18 05/26/20 07:00 BP 124/74 05/26/20 07:00 Pulse Ox 95 05/26/20 07:00 Intake & Output 05/25/20 05/26/20 05/26/20 18:59 06:59 18:59 Intake Total 260 Output Total 550 1510 0 Balance -290 -1510 0 Weight 88.5 kg 85.4 kg Intake: IV 260 normal saline 260 Output: Urine 550 1510 0 Other: Voiding Method Urinal # Voids 1 # Bowel Movements 1 - Exam GENERAL EXAM: Patient is alert and oriented and appears anxious and having some chest pain. Worried the pain was caused by the medications that he swallowed HEENT: Normocephalic. Normal reaction of pupils, equal size, normal range of extraocular motion. No erythema or exudates in the throat. NECK: No masses, no nuchal rigidity. CHEST: No chest wall deformity. LUNGS: Equal air entry with no crackles or wheeze. HEART: S1 and S2 normal with no audible mumurs or gallops. Regular rhythm, femorals equal on both sides.. ABDOMEN: No hepatosplenomegaly, normal bowel sounds, no guarding or rigidity. SKIN: No rashes CENTRAL NERVOUS SYSTEM: No focal deficits. EXTREMITIES: No cyanosis, clubbing or edema. The puncture site: Is soft without any hematoma - Labs CBC & Chem 7: 05/26/20 04:46 05/26/20 04:46 Labs: Abnormal Lab Results - Last 24 Hours (Table) 05/25/20 05/26/20 Range/Units 07:26 04:46 Chloride 109 H (98-107) mmol/L Glucose 107 H (74-99) mg/dL AST 91 H (17-59) U/L Troponin I 13.200 H* (0.000-0.034) ng/mL Assessment and Plan (1) Hypertension, essential Current Visit: Yes Status: Acute Code(s): I10 - ESSENTIAL (PRIMARY) HYPERTENSION SNOMED Code(s): 70054594 (2) ST elevation myocardial infarction (STEMI) Current Visit: Yes Status: Acute Code(s): I21.3 - ST ELEVATION (STEMI) MYOCARDIAL INFARCTION OF UNSP SITE SNOMED Code(s): 15821336 (3) Cervical disc disease Current Visit: No Status: Acute Code(s): M50.90 - CERVICAL DISC DISORDER, UNSP, UNSPECIFIED CERVICAL REGION SNOMED Code(s): 129266936 Plan: Patient is clinically stable. No recurrence of chest pain. Blood pressure is better controlled. Heart rate is in the 50s and 60s. Patient is being transferred to telemetry unit. If he continues to be stable, patient will be discharged home within next 24 hours.
[2020-05-26] MEDS ORDERED: ASPIRIN 325 MG TAB PO SCH (09:00)
[2020-05-26] MEDS: HEPARIN SODIUM,PORCINE 5,000 UNIT/ML 1 ML VIAL SQ SCH ×2 (09:05→19:50)
[2020-05-26] MEDS: METOPROLOL TARTRATE 12.5 MG TAB PO SCH ×2 (09:05→19:50)
[2020-05-26] MEDS: lisinopriL 10 MG TAB PO SCH (09:05)
[2020-05-26] MEDS: TICAGRELOR 90 MG TAB PO SCH ×2 (09:05→19:50)
[2020-05-26] MEDS: ATORVASTATIN 80 MG TAB PO SCH (09:05)
[2020-05-26] MEDS: FAMOTIDINE 20 MG/2 ML VIAL IV SCH ×2 (09:05→19:50)
[2020-05-26] MEDS: ASPIRIN 81 MG PO SCH (09:05)
[2020-05-26] MEDS: AMOXIC-POT CLAV 875-125MG 1 EACH TAB PO SCH (09:06)
[2020-05-26] MEDS: amLODIPine 5 MG TAB PO SCH (09:06)
[2020-05-26] MEDS: traMADol 50 MG TAB PO PRN ×2 (09:06→18:03)
--- NOTE | 2020-05-26 18:39 | P.PN ---
Subjective This is a pleasant 64 years old male with past medical history of rheumatoid arthritis. Cigarette smoker. He is a patient of Dr. Thomas. Presents because of chest pain of one-day duration, central and to the left chest radiating to the left arm, left leg severe pain.On the patient's were stable heart rate is running around 50-57. Labs show an unremarkable CBC, INR 0.9, BMP is unremarkable liver enzymes not elevated. Patient is with high troponin first one is 0.4, second one was 2.9, proBNP is normal at 184. Chest x-ray: Bibasilar hazy opacity which may be due to aspiration or infection EKG showing normal sinus rhythm at [address] elevation at that II,III and aVF Patient underwent emergency coronary artery angiogram showing 90% stenosis of the RCA status post PCI of the proximal RCA and mid RCA. Patient currently is chest pain free, he had little dyspnea this morning with a third is due to anxiety. He denies coughing. No change in urine or bowel habits. No fever. He smokes about three quarters of a pack per day and now he is decided to quit, he declined nicotine patch. Occasional alcohol drinker with no illicit drugs Also patient denies vomiting, no recent choking while eating or aspiration 05/26/2020 This is a pleasant 64 years old male who presents with chest pain associated with slight ST elevation in the inferior leads suspicious for STEMI he underwent emergent cardiac cath with 2 stents placed in the proximal and midportion of the right coronary artery. Patient is currently on dual antiplatelet therapy with aspirin and Brillinta , earlier today he had chest pain, however by the time I saw the patient he was chest pain free he was complaining only for mild exertional dyspnea on walking but no coughing. Labs including CBC and BMP are unremarkable. Throatcalcitonin from yesterday was unremarkable. Echocardiogram showed ejection fraction of 50-55% with moderate concentric left ventricular hypertrophy and inferior wall hypokinesia. Most likely patient has atelectasis rather than infection and pneumonia. Patient is afebrile with no leukocytosis, antibiotics can be stopped On examination patient has mild bilateral basal crepitation and mild trace leg edema. Objective - Vital Signs Vital signs: Vital Signs Temp 97.9 F 05/26/20 13:40 Pulse 56 L 05/26/20 13:40 Resp 18 05/26/20 13:40 BP 104/55 05/26/20 13:40 Pulse Ox 97 05/26/20 13:40 Intake & Output 05/25/20 05/26/20 05/26/20 18:59 06:59 18:59 Intake Total 260 350 Output Total 550 1510 1025 Balance -290 -1510 -675 Weight 88.5 kg 85.4 kg Intake: IV 260 normal saline 260 Oral 350 Output: Urine 550 1510 1025 Other: Voiding Method Urinal Urinal # Voids 1 2 # Bowel Movements 1 - Exam GENERAL: The patient is alert and oriented x3, not in any acute distress. Well developed, well nourished. HEENT: Pupils are round and equally reacting to light. EOMI. No scleral icterus. No conjunctival pallor. Normocephalic, atraumatic. No pharyngeal erythema. No thyromegaly. CARDIOVASCULAR: S1 and S2 present. No murmurs, rubs, or gallops. - Chest is clear to auscultation, no wheezing. Very mild bilateral basal crepitation ABDOMEN: Soft, nontender, nondistended, normoactive bowel sounds. No palpable organomegaly. MUSCULOSKELETAL: No joint swelling or deformity. -EXTREMITIES: No cyanosis, clubbing,. Trace bilateral pitting leg edema NEUROLOGICAL: Gross neurological examination did not reveal any focal deficits. SKIN: No rashes. no petechiae. - Labs CBC & Chem 7: 05/26/20 04:46 05/26/20 04:46 Labs: Abnormal Lab Results - Last 24 Hours (Table) 05/26/20 Range/Units 04:46 Chloride 109 H (98-107) mmol/L Glucose 107 H (74-99) mg/dL AST 91 H (17-59) U/L Assessment and Plan Assessment: Acute inferior STEMI, status post cardiac cath and PCI of the proximal and mid RCA Nicotine dependence Most likely patient has atelectasis rather than infiltrate in the chest x-ray. Patient is afebrile with no leukocytosis, no significant symptoms and normal pocalcitonin History of rheumatoid arthritis Plan: This is a pleasant 64 years old male who presents with STEMI, status post stent placement to the RCA 2. Patient is on aspirin and Brilinta , cardiology team on the case.Importance of aggressive therapy is explained to the patient extensively Discontinue Augmentin. Continue monitor the patient per Direct Care Counselor recommendation Labs and medication were reviewed.. Continue same treatment. Continue with symptomatic treatment. Resume home medication. Monitor lytes and vitals. DVT and GI prophylaxis. Further recommendations depends on the clinical course of the patient DVT prophylaxis: Subcutaneous heparin GI Prophylaxis: Pepcid i discussed with patient and he agrees with the plan
[2020-05-27] MEDS: traMADol 50 MG TAB PO PRN (03:31)
[2020-05-27 03:43] VITALS: RESP 20
[2020-05-27] MEDS: lisinopriL 10 MG TAB PO SCH (08:05)
[2020-05-27] MEDS: METOPROLOL TARTRATE 12.5 MG TAB PO SCH (08:05)
[2020-05-27] MEDS: ASPIRIN 81 MG PO SCH (08:05)
[2020-05-27] MEDS: HEPARIN SODIUM,PORCINE 5,000 UNIT/ML 1 ML VIAL SQ SCH (08:05)
[2020-05-27] MEDS: ATORVASTATIN 80 MG TAB PO SCH (08:06)
[2020-05-27] MEDS: FAMOTIDINE 20 MG/2 ML VIAL IV SCH (08:06)
[2020-05-27] MEDS: TICAGRELOR 90 MG TAB PO SCH (08:06)
[2020-05-27 09:09] LABS: HCT 45.8 % (39.0-53.0); HGB 14.8 gm/dL (13.0-17.5); MCH 30.1 pg (25.0-35.0); MCHC 32.3 g/dL (31.0-37.0); MCV 93.2 fL (80.0-100.0); Mean Platelet Volume 8.2; Platelet Count 174 k/uL (150-450); RBC 4.91 m/uL (4.30-5.90); RDW 12.7 % (11.5-15.5)
[2020-05-27 09:26] LABS: Calcium 8.9 mg/dL (8.4-10.2); Potassium 4.3 mmol/L (3.5-5.1)
[2020-05-27 11:57] VITALS: BP 104/57; PULSE 50; TEMP 98.3
[2020-05-27] MEDS: amLODIPine 5 MG TAB PO SCH (12:19)
--- NOTE | 2020-05-27 14:15 | P.PN ---
Subjective Progress Note Date: 05/27/20 HISTORY OF PRESENT ILLNESS: Patient is status post cardiac cath with PCI to proximal RCA and mid RCA. Patient denies chest pain or pressure. Denies shortness of breath. Vital signs are stable. He is hoping to be discharged home today. PHYSICAL EXAM: VITAL SIGNS: Reviewed. GENERAL: Well-developed in no acute distress. NECK: Supple. No JVD or thyromegaly LUNGS: Respirations even and unlabored. Lungs essentially clear to auscultation bilaterally. HEART: Regular rate and rhythm. S1 and S2 heard. EXTREMITIES: Normal range of motion. No clubbing or cyanosis. Peripheral pulses intact. No lower extremity edema ASSESSMENT: Acute STEMI, status post PCI to proximal and mid RCA Nicotine dependence PLAN: Continue current cardiac medications. Patient is stable for discharge home today. Patient to follow up outpatient with Dr. Agustin. Nurse practitioner note has been reviewed by physician. Signing provider agrees with the documented findings, assessment, and plan of care. Objective - Vital Signs Vital signs: Vital Signs Temp 98.3 F 05/27/20 11:57 Pulse 50 L 05/27/20 11:57 Resp 20 05/27/20 11:57 BP 104/57 05/27/20 11:57 Pulse Ox 95 05/27/20 11:57 Intake & Output 05/26/20 05/27/20 05/27/20 18:59 06:59 18:59 Intake Total 350 240 720 Output Total 1025 Balance -675 240 720 Weight 81.9 kg Intake: Oral 350 240 720 Output: Urine 1025 Other: Voiding Method Urinal # Voids 2 1 - Labs CBC & Chem 7: 05/27/20 08:40 05/27/20 08:40 Labs: Abnormal Lab Results - Last 24 Hours (Table) 05/27/20 Range/Units 08:40 BUN 26 H (9-20) mg/dL
[2020-05-27] MEDS ORDERED: FAMOTIDINE 20 MG TAB PO SCH (21:00)
--- NOTE | 2020-05-27 22:48 | P.DS ---
Providers Date of admission: 05/25/20 01:24 Attending physician: Augustine Brown Consults: 05/25/20 01:24 Consult Physician Urgent Consulting Provider: Jaron Agustin Consult Reason/Comments: stemi Do you want consulting provider notified?: Yes 05/25/20 03:54 Consult Physician Routine Consulting Provider: [facility] Consult Reason/Comments: Post Interventional patient Do you want consulting provider notified?: Already Contacted Primary care physician: Kathryn Thomas Hospital Course: Diagnosis Acute inferior STEMI, status post cardiac cath and PCI of the proximal and mid RCA Nicotine dependence, patient was counseled to quit smoking and he agrees. Most likely patient has atelectasis rather than infiltrate in the chest x-ray. Patient is afebrile with no leukocytosis, no significant symptoms and normal pocalcitonin History of rheumatoid arthritis Hospital course: This is a pleasant 64 years old male with past medical history of rheumatoid arthritis. Cigarette smoker. He is a patient of Dr. Thomas. Presents because of chest pain of one-day duration, EKG showing normal sinus rhythm at [address] elevation at that II,III and aVF.Patient is with high troponin first one is 0.4, second one was 2.9, proBNP is normal at 184. Patient has been evaluated by wood borer, Patient underwent emergency coronary artery angiogram showing 90% stenosis of the RCA status post PCI of the proximal RCA and mid RCA. Patient is currently on dual antiplatelet therapy with aspirin and Brillinta , and the importance of intolerance to medication is explained to him extensively On the day of discharge patient denies chest pain, no dyspnea, no change in urine or bowel habits. No palpitation or headache or dizziness. No fever. Patient was cleared for discharge by wood borer Problems and management plan were discussed with the patient and he verbalized understanding and acceptance Patient was found stable and can be discharged home however he needs follow-up as an outpatient. Patient was instructed to follow up with PCP Dr. Thomas within one week and patient agrees. Also patient was instructed to follow up with his wood borer Dr. Agustin in 1 week and he agrees to call and make his own appointment Gen: patient is a AAOx3, no distress CVS: S1-S2, RRR, no murmur Lungs: B/L CTA, no wheezing Abdomen: soft, no distention, no tenderness, positive bowel sounds Extremity: no leg edema or induration Time spent more than 35 minutes Patient Condition at Discharge: Serious Plan - Discharge Summary Discharge Rx Participant: No New Discharge Prescriptions: New Aspirin 81 mg PO DAILY #30 chew Ticagrelor [Brilinta] 90 mg PO BID #60 tab Atorvastatin [Lipitor] 80 mg PO DAILY #30 tab Metoprolol Tartrate [Lopressor] 12.5 mg PO BID #60 tab Nitroglycerin Sl Tabs [Nitrostat] 0.4 mg SUBLINGUAL Q5M PRN #20 tab PRN Reason: Chest Pain amLODIPine [Norvasc] 5 mg PO DAILY #30 tab lisinopriL [Zestril] 10 mg PO DAILY #30 tab Continue traMADol HCL [Ultram] 50 mg PO Q8H PRN PRN Reason: Pain Multivitamin/Iron/Folic Acid [Centrum Complete Multivit Tab] 1 tab PO DAILY Discontinued Ibuprofen [Motrin] 600 mg PO Q8HR PRN PRN Reason: Pain Discharge Medication List Multivitamin/Iron/Folic Acid [Centrum Complete Multivit Tab] 1 tab PO DAILY 10/24/17 [History] traMADol HCL [Ultram] 50 mg PO Q8H PRN 10/24/17 [History] Aspirin 81 mg PO DAILY #30 chew 05/27/20 [Rx] Atorvastatin [Lipitor] 80 mg PO DAILY #30 tab 05/27/20 [Rx] Metoprolol Tartrate [Lopressor] 12.5 mg PO BID #60 tab 05/27/20 [Rx] Nitroglycerin Sl Tabs [Nitrostat] 0.4 mg SUBLINGUAL Q5M PRN #20 tab 05/27/20 [R x] Ticagrelor [Brilinta] 90 mg PO BID #60 tab 05/27/20 [Rx] amLODIPine [Norvasc] 5 mg PO DAILY #30 tab 05/27/20 [Rx] lisinopriL [Zestril] 10 mg PO DAILY #30 tab 05/27/20 [Rx] Follow up Appointment(s)/Referral(s): Jaron Agustin DO [STAFF PHYSICIAN] - 1 Week ([facility] will call patient to schedule follow up appointment, per Jany/office staff. ) Kathryn Thomas MD [Primary Care Provider] - 1-2 days (please call office when open to make follow up appointment) Patient Instructions/Handouts: *Surgery [facility] - After Heart Catheterization - Central Services Tech Instructions, Heart Healthy Diet (DC) Activity/Diet/Wound Care/Special Instructions: Heart healthy diet Activity is restricted until you see your doctor Discharge Disposition: HOME SELF-CARE
== END 2020-05-27 15:50 | disposition home or self-care (01) | DRG 247 ==
LOC: EC 01:01 → 2SICU 01:24 → 3SCARD 05-26 17:50
PROVIDERS: ADMIT Hospitalist; ATTEND Hospitalist
PROC: B240ZZ3 Ultrasonography of Single Coronary Artery, Intravascular (ICD-10-PCS; 2020-05-25)
PROC: 027035Z Dilation of Coronary Artery, One Artery with Two Drug-eluting Intraluminal Devices, Percutaneous Approach (ICD-10-PCS; principal; 2020-05-25 01:48)
PROC: 4A023N7 Measurement of Cardiac Sampling and Pressure, Left Heart, Percutaneous Approach (ICD-10-PCS; 2020-05-25 01:48)
PROC: B2111ZZ Fluoroscopy of Multiple Coronary Arteries using Low Osmolar Contrast (ICD-10-PCS; 2020-05-25 01:48)
DX: I21.19 ST elevation (STEMI) myocardial infarction involving other coronary artery of inferior wall (principal); J98.11 Atelectasis; I11.9 Hypertensive heart disease without heart failure; M06.9 Rheumatoid arthritis, unspecified; I25.10 Atherosclerotic heart disease of native coronary artery without angina pectoris; B02.9 Zoster without complications; F17.210 Nicotine dependence, cigarettes, uncomplicated; R00.2 Palpitations; M50.90 Cervical disc disorder, unspecified, unspecified cervical region; F41.9 Anxiety disorder, unspecified; Z71.6 Tobacco abuse counseling; Z79.899 Other long term (current) drug therapy; Z87.01 Personal history of pneumonia (recurrent); Z87.81 Personal history of (healed) traumatic fracture; Z85.528 Personal history of other malignant neoplasm of kidney; Z90.5 Acquired absence of kidney; Z96.651 Presence of right artificial knee joint; Z98.890 Other specified postprocedural states; Z80.9 Family history of malignant neoplasm, unspecified
CPT/HCPCS: 36415; 71045; 80048; 80053; 80061; 82550; 82553; 83690; 83735; 83880; 84145; 84484; 85025; 85027; 85049; 85610; 85730; 92978; 93005; 93306; 93454; 96374; 96376; 99285

== ENCOUNTER → 2020-06-10 | Day surgery (SDC) | payer MEDICARE ==
[2020-06-09 09:43] VITALS: BMI 24.4
[~2020-06-10] MED LIST: ALPRAZolam 0.25 MG TAB PO PRN; ALPRAZolam 0.5 MG TAB PO PRN; ASPIRIN 325 MG TAB PO ONE; ATORVASTATIN 80 MG TAB PO ONE; CLOPIDOGREL 75 MG TAB PO STA; HEPARIN SODIUM 1,000 UN/ML (10ML VL) ONE; HEPARIN SODIUM,PORCINE 10,000 UNIT in SODIUM CHLORIDE 0.9% 1,000 ML IRRIGATION PRN; HEPARIN SODIUM,PORCINE 2,500 UNIT in SODIUM CHLORIDE 0.9% 250 ML IRRIGATION PRN; INSULIN ASPART (NovoLOG) 100 UNIT/ML VIAL SQ ONE; IOPAMIDOL-370 125ML BTL INJ ONE; LIDOCAINE 1% INJ 10MG/ML (20 ML MDV) ONE; LIDOCAINE 1% INJ 10MG/ML (20 ML MDV) SQ ONE; MIDAZOLAM 2 MG/2 ML VIAL IVP ONE; NITROGLYCERIN SL TABS 0.4 MG TAB SUBLINGUAL PRN; RX INFO: IV CONTRAST WAS GIVEN 1 EACH MISC MISCELLANE PRN; SODIUM CHLORIDE 0.9% 1,000 ML IV ONE; SODIUM CHLORIDE 0.9% 1,000 ML in EMPTY BAG 1 BAG IV ONE; VERAPAMIL 2.5 MG/ML 2 ML AMP ONE; VERAPAMIL SYRINGE (5 MG/10 ML) INTRAARTER ONE; fentaNYL (PF) 50 MCG/ML 2 ML AMP IVP ONE; fentaNYL (PF) 50 MCG/ML 2 ML AMP ONE
[2020-06-10 09:21] VITALS: RESP 16; TEMP 97.4
[2020-06-10] MEDS: HEPARIN SODIUM 1,000 UN/ML (10ML VL) IV ONE ×2 (10:01→10:15)
[2020-06-10 15:12] VITALS: BP 117/60; PULSE 54
--- NOTE | 2020-06-10 17:40 | P.CARDCATH ---
Description of Procedure: PROCEDURES PERFORMED: Bilateral coronary angiography, iFR of RCA INDICATION: Inferior STEMI HISTORY: Patient is a pleasant 64-year-old male with history of tobacco abuse, kidney cancer status post nephrectomy and recent inferior STEMI with PCI of the proximal and mid RCA. He has unfortunately been having chest pain, SOB, dizziness, diaphoresis and episodes where he needs to sit down which is new since his STEMI and feels similar to the symptoms he was having during his STEMI. Therefore recommendation was for [facility] to evaluate for any complications from stent implantation. CONSENT:I have discussed the risks, benefits and alternative therapies for the above-mentioned procedure and for both sedation/analgesia as well as necessary blood product administration, if indicated, as they pertain to this patient. The patient has indicated understanding and acceptance of the risks and procedures discussed. PROCEDURE: After the risks, benefits and alternatives of the above mentioned procedure explained in detail with the patient, informed consent was obtained. Patient was taken to the catheterization lab and prepped and draped in usual fashion. 1% lidocaine was used to anesthetize the right radial artery. A 6- Hungarian sheath was placed in the right radial artery using modified Seldinger technique. Left coronary angiography was performed with a 5-Hungarian JL 3.5 catheter. RCA angiography was performed with a 5Fr FR5 catheter. The stents appeared similar without significant change and residual 20-30% stenosis, possi ble 30-40% stenosis at the origin at the greatest. However due to symptoms decision was made to perform iFR. A 6Fr FR5 guide catheter was used and a 0.014 guide wire was advanced outside the sheath and normalized. The wire was then passed into the mid to distal RCA, 20mm past the stent. iFR value was obtained at 0.96. The wire was then removed. The right radial sheath was removed and a TR band was placed with hemostasis achieved. The patient tolerated the procedure well. Patient was transported back to the post catheterization holding area in stable condition. Conscious Sedation: Patient was monitored under the direct supervision of vision of myself for conscious sedation using Versed and fentanyl for a total duration of 28 minutes HEMODYNAMICS: Aorta: 124/80 SELECTIVE CORONARY ARTERIOGRAPHY: LEFT MAIN: The left main is a large caliber vessel which bifurcates into the LAD and circumflex. There is no significant stenosis. LEFT ANTERIOR DESCENDING CORONARY ARTERY: LAD is a large caliber vessel which wraps around to the apex. There are mild luminal irregularities of the mid LAD. There is bridging of the mid LAD noted. LEFT CIRCUMFLEX CORONARY ARTERY: Left circumflex is a moderate caliber vessel with a mid 30% circumflex stenosis. It gives off a moderate caliber OM branches. RIGHT CORONARY ARTERY: The right coronary artery is a moderate to large caliber vessel which gives off a PDA and PLV branch and is the dominant vessel. There is a proximal RCA stent which is patent with 20% proximal stenosis and a mid RCA stent with mild 10% step down and otherwise no significant stenosis. FINAL IMPRESSION: 1. Mild coronary artery disease as described above with patent RCA stents. 2. iFR negative RCA PLAN: 1. Aggressive risk factor modification per most recent ACC/AHA guidelines. 2. Given episodic nature of symptoms with some lightheadedness would recommend event monitor to rule out arrythmia. 3. Continue dual antiplatelets for 12 months. Patient having significant dyspnea as one of his symptoms and therefore we will change Brillinta to Plavix.
== END ==
LOC: CATHCVL 08:09
PROVIDERS: ATTEND Internal Medicine
DX: I25.110 Atherosclerotic heart disease of native coronary artery with unstable angina pectoris (principal); M06.9 Rheumatoid arthritis, unspecified; Z85.528 Personal history of other malignant neoplasm of kidney; Z90.5 Acquired absence of kidney; Z95.5 Presence of coronary angioplasty implant and graft; I25.2 Old myocardial infarction; Z87.891 Personal history of nicotine dependence; E78.5 Hyperlipidemia, unspecified; Z79.02 Long term (current) use of antithrombotics/antiplatelets; Z79.82 Long term (current) use of aspirin; Z79.899 Other long term (current) drug therapy
CPT/HCPCS: 93270; 93571; 93454; C1887; C1769; C1894; J2250; J2001; J3010; J1644; Q9967

== ENCOUNTER 2021-01-30 08:44 | Day surgery (SDC) | payer MEDICARE ==
[2021-01-25 08:20] VITALS: BMI 23.7
[~2021-01-30 08:44] MED LIST changes: -ASPIRIN 325 MG TAB PO ONE; +ASPIRIN 325 MG TAB PO STA; -ATORVASTATIN 80 MG TAB PO ONE; +ATORVASTATIN 80 MG TAB PO STA; -CLOPIDOGREL 75 MG TAB PO STA; -HEPARIN SODIUM 1,000 UN/ML (10ML VL) ONE; -HEPARIN SODIUM,PORCINE 10,000 UNIT in SODIUM CHLORIDE 0.9% 1,000 ML IRRIGATION PRN; -HEPARIN SODIUM,PORCINE 2,500 UNIT in SODIUM CHLORIDE 0.9% 250 ML IRRIGATION PRN; -INSULIN ASPART (NovoLOG) 100 UNIT/ML VIAL SQ ONE; -IOPAMIDOL-370 125ML BTL INJ ONE; -LIDOCAINE 1% INJ 10MG/ML (20 ML MDV) ONE; -LIDOCAINE 1% INJ 10MG/ML (20 ML MDV) SQ ONE; -MIDAZOLAM 2 MG/2 ML VIAL IVP ONE; -RX INFO: IV CONTRAST WAS GIVEN 1 EACH MISC MISCELLANE PRN; -SODIUM CHLORIDE 0.9% 1,000 ML IV ONE; -VERAPAMIL 2.5 MG/ML 2 ML AMP ONE; -VERAPAMIL SYRINGE (5 MG/10 ML) INTRAARTER ONE; -fentaNYL (PF) 50 MCG/ML 2 ML AMP IVP ONE; -fentaNYL (PF) 50 MCG/ML 2 ML AMP ONE
[2021-01-30 10:31] VITALS: TEMP 98
[2021-01-30] MEDS ORDERED: MIDAZOLAM 2 MG/2 ML VIAL IV ONE (10:45)
[2021-01-30] MEDS ORDERED: fentaNYL (PF) 50 MCG/ML 2 ML AMP IV ONE (10:46)
[2021-01-30] MEDS ORDERED: LIDOCAINE 1% INJ 10MG/ML (20 ML MDV) SQ ONE (10:47)
[2021-01-30] MEDS ORDERED: VERAPAMIL SYRINGE (5 MG/10 ML) INTRAARTER ONE (10:49)
[2021-01-30] MEDS: HEPARIN SODIUM 1,000 UN/ML (10ML VL) IV ONE ×2 (10:52→11:08)
[2021-01-30] MEDS ORDERED: IOPAMIDOL-370 125ML BTL INJ ONE (11:31)
--- NOTE | 2021-01-30 17:35 | P.CARDCATH ---
Description of Procedure: PROCEDURES PERFORMED: Bilateral coronary angiography, iFR of RCA, acute marginal branch, circumflex, LAD, ramus INDICATION: Angina concerning for unstable angina HISTORY: Patient is a pleasant 65-year-old male with history of tobacco abuse, kidney cancer status post nephrectomy and previous inferior STEMI with PCI of the proximal and mid RCA. He has been having symptoms of chest pain associated with diaphoresis and shortness breath with fairly minimal activity which has been off and on since his prior stenting. We had recommended an outpatient stress test however patient felt he was unable to perform stress test and therefore desired repeat heart catheterization. CONSENT:I have discussed the risks, benefits and alternative therapies for the above-mentioned procedure and for both sedation/analgesia as well as necessary blood product administration, if indicated, as they pertain to this patient. The patient has indicated understanding and acceptance of the risks and procedures discussed. PROCEDURE: After the risks, benefits and alternatives of the above mentioned procedure explained in detail with the patient, informed consent was obtained. Patient was taken to the catheterization lab and prepped and draped in usual fashion. 1% lidocaine was used to anesthetize the right radial artery. A 6- Syriac sheath was placed in the right radial artery using modified Seldinger technique. Left coronary angiography was performed with a 5-Syriac JL 3.5 catheter. RCA angiography was performed with a 5Fr FR5 catheter. The stents appeared similar without significant change and residual 20-30% stenosis. However due to symptoms decision was made to perform iFR or LAD, ramus, circumflex and RCA. A 6Fr FR5 guide catheter was used and a 0.014 pressure wire was advanced outside the sheath and normalized. The wire was then passed into the mid to distal RCA, 20mm past the stent. iFR value RCA was obtained at 0.96. The wire was then placed into the acute marginal and iFR value of 0.92. Next the left main was engaged with a 6Fr CLS 3.0 guide. iFR was performed of the LAD at 0.92 (initial iFR had significant drift and therefore was reperformed). iFR of ramus was 0.99, iFR circumflex 0.99 The right radial sheath was removed and a TR band was placed with hemostasis achieved. The patient tolerated the pr ocedure well. Patient was transported back to the post catheterization holding area in stable condition. Conscious Sedation: Patient was monitored under the direct supervision of vision of myself for conscious sedation using Versed and fentanyl for a total duration of 48 minutes HEMODYNAMICS: Aorta: 126/78 LV: 122/4, LVEDP 18 SELECTIVE CORONARY ARTERIOGRAPHY: LEFT MAIN: The left main is a large caliber vessel which bifurcates into the LAD and circumflex. There is no significant stenosis. LEFT ANTERIOR DESCENDING CORONARY ARTERY: LAD is a large caliber vessel which wraps around to the apex. There are mild luminal irregularities of the mid LAD. There is bridging of the mid LAD noted. LEFT CIRCUMFLEX CORONARY ARTERY: Left circumflex is a moderate caliber vessel with a mid 30% circumflex stenosis. It gives off a moderate caliber OM branches. RIGHT CORONARY ARTERY: The right coronary artery is a moderate to large caliber vessel which gives off a PDA and PLV branch and is the dominant vessel. There is a proximal RCA stent which is patent with 20% proximal stenosis and a mid RCA stent with mild 10% step down and otherwise no significant stenosis. FINAL IMPRESSION: 1. Mild coronary artery disease as described above with patent RCA stents. 2. iFR negative RCA, acute marginal, ramus, circumflex, LAD 3. Bridging of LAD noted PLAN: 1. Aggressive risk factor modification per most recent ACC/AHA guidelines. 2. Mildly elevated left sided filling pressures and we will attempt diuresis and monitor response. 3. If patient has continued angina would recommend a stress test as degree of LAD bridging may be dynamic in nature and may be worse with exertion. LAD bridging does not typically cause angina and would continue to treat medically at this point with normal iFR values.
[2021-01-30 18:15] VITALS: BP 124/60; PULSE 44; RESP 16
== END 2021-01-30 15:47 | disposition home or self-care (01) ==
LOC: CATHCVL 08:44
PROVIDERS: ATTEND Internal Medicine
DX: I20.9 Angina pectoris, unspecified (principal); E78.5 Hyperlipidemia, unspecified; I25.10 Atherosclerotic heart disease of native coronary artery without angina pectoris; R06.00 Dyspnea, unspecified; R07.2 Precordial pain; F17.210 Nicotine dependence, cigarettes, uncomplicated; Z85.528 Personal history of other malignant neoplasm of kidney; Z87.891 Personal history of nicotine dependence
CPT/HCPCS: 93571; 93572; 93454; 87635; C1887 ×2; C1894; J2250; J2001; J3010; J1644; Q9967

== ENCOUNTER 2021-12-13 11:42 | Inpatient (IN) | payer MEDICARE ==
--- NOTE | 2021-12-13 12:01 | ED ---
General Adult HPI - General Chief complaint: Neuro Symptoms/Deficit Stated complaint: weakness Time Seen by Provider: 12/13/21 11:46 Source: patient, RN/MD, RN notes reviewed Mode of arrival: EMS Limitations: no limitations - History of Present Illness Initial comments: Patient is a pleasant 66-year-old male presenting to the emergency Department with EMS with concern for right leg weakness. Patient was diagnosed with pneumonia in [place]. Patient has been having some mild persistent chest pressure and congestion as well as sinus congestion over the past couple of weeks. Patient tried to stand up and had right leg weakness. Patient needed to be caught by somebody to help prevent and falling. Patient does have history of similar symptoms previously associated with TIA. Patient states right leg heaviness has improved and now resolved. Patient still has paresthesias of right leg. Last known well 9:30 AM. Patient confirms she was in the office for a long period of time. No other area of involvement. Chest discomfort resolved with nitroglycerin by EMS. - Related Data Home Medications Medication Instructions Recorded Confirmed Multivitamin/Iron/Folic Acid 1 tab PO DAILY 10/24/17 12/13/21 [Centrum Complete Multivit Tab] traMADol HCL [Ultram] 50 mg PO Q8H PRN 10/24/17 12/13/21 Ibuprofen 600 mg PO TID PRN 01/25/21 12/13/21 Albuterol Inhaler [Ventolin Hfa 2 puff INHALATION RT-Q6H PRN 12/13/21 12/13/21 Inhaler] Albuterol Nebulized [Ventolin 2.5 mg INHALATION RT-TID PRN 12/13/21 12/13/21 Nebulized] Cyanocobalamin (Vitamin B-12) 1,000 mcg PO DAILY 12/13/21 12/13/21 [Vitamin B-12] Allergies Allergy/AdvReac Type Severity Reaction Status Date / Time No Known Allergies Allergy Verified 12/13/21 12:09 Review of Systems ROS Statement: Those systems with pertinent positive or pertinent negative responses have been documented in the HPI. ROS Other: All systems not noted in ROS Statement are negative. Constitutional: Denies: fever Eyes: Denies: eye pain ENT: Reports: congestion. Denies: ear pain Respiratory: Reports: cough Cardiovascular: Denies: palpitations Endocrine: Denies: fatigue Gastrointestinal: Denies: abdominal pain Genitourinary: Denies: dysuria Musculoskeletal: Denies: back pain Skin: Denies: rash Neurological: Reports: as per HPI, weakness (Near resolved), paresthesias. Denies: headache Past Medical History Past Medical History: Myocardial Infarction ([place]), Pneumonia, Rheumatoid Arthritis ([place]) Additional Past Medical History / Comment(s): freq diarrhea and SOB,hx 01-09-15-FX RT HIP d/t fall, HX RT KIDNEY CA- no chemo, no radiation. hx of shingels approx 3 years ago affected lt side of face Last Myocardial Infarction Date:: 05-25-2020 History of Any Multi-Drug Resistant Organisms: None Reported Past Surgical History: Heart Catheterization With Stent, Joint Replacement, Orthopedic Surgery Additional Past Surgical History / Comment(s): RT NEPHRECTOMY,RT KNEE REPLACE, ROT CUFF REPAIR LT,LT HAND REMOVAL OF A NAIL,MULT ORTHOSCOPIC SURG MEGAN KNEES, 01-17-15 CLOSED REDUCTION/PINNING OF RT HIP Past Anesthesia/Blood Transfusion Reactions: Motion Sickness, Postoperative Nausea & Vomiting (PONV) Additional Past Anesthesia/Blood Transfusion Reaction / Comment(s): never recieved blood. Date of Last Stent Placement:: 05-25-2020 Past Psychological History: No Psychological Hx Reported Smoking Status: Former smoker Past Alcohol Use History: Occasional Past Drug Use History: None Reported - Past Family History Mother Family Medical History: Cancer Father Family Medical History: Cancer, Deep Vein Thrombosis (DVT) General Exam Limitations: no limitations General appearance: alert, in no apparent distress Head exam: Present: normocephalic Eye exam: Present: normal appearance, PERRL, EOMI ENT exam: Present: normal oropharynx Neck exam: Present: normal inspection Respiratory exam: Present: normal lung sounds bilaterally. Absent: chest wall tenderness Cardiovascular Exam: Present: regular rate, normal rhythm Expanded Peripheral pulses: 2+: Radial (R), Radial (L), Posterior Tibialis (R), Posterior Tibialis (L), Dorsalis Pedis (R), Dorsalis Pedis (L) GI/Abdominal exam: Present: soft. Absent: tenderness, pulsatile mass Extremities exam: Present: normal inspection, full ROM. Absent: tenderness, pedal edema, calf tenderness Neurological exam: Present: alert, oriented X3, CN II-XII intact Expanded Neurological exam: Present: protecting the airway Speech: Present: fluid speech Cranial nerves: EOM's Intact: Normal Sensory exam: Upper Extremity Light Touch: Normal, Lower Extremity Light Touch: Abnormal Right (Decreased sensation right lower leg) Motor strength exam: RUE: 5, LUE: 5, RLE: 5, LLE: 5 Eye Response: (4) open spontaneously Motor Response: (6) obeys commands Verbal Response: (5) oriented Psychiatric exam: Present: normal affect, normal mood Skin exam: Present: normal color Course Vital Signs 12/13/21 12/13/21 12/13/21 11:43 11:51 12:00 Temperature 98.1 F Pulse Rate 62 58 L 57 L Respiratory 18 20 20 Rate Blood Pressure 138/95 138/95 O2 Sat by Pulse 98 98 97 Oximetry 12/13/21 12/13/21 12/13/21 12:10 12:20 12:30 Temperature Pulse Rate 53 L 51 L 52 L Respiratory 20 20 20 Rate Blood Pressure 130/52 124/69 127/79 O2 Sat by Pulse 98 98 Oximetry 12/13/21 12/13/21 12/13/21 12:40 12:50 13:00 Temperature Pulse Rate 51 L 51 L 50 L Respiratory 20 20 20 Rate Blood Pressure 122/66 125/69 112/65 O2 Sat by Pulse 98 97 97 Oximetry 12/13/21 13:10 Temperature Pulse Rate 51 L Respiratory 20 Rate Blood Pressure 123/73 O2 Sat by Pulse 97 Oximetry - Reevaluation(s) Reevaluation #1: 12/13/21 12:01 Code stroke was called. Patient felt to be low likelihood candidate for TPA secondary to improvement of symptoms and only single extremity sensory involvem ent 12/13/21 12:02 Case was discussed with Dr. Pineda who agrees patient is not a TPA candidate. We believe risks outweigh the benefit. He did recommend medical management. EKG Findings - EKG Comments: EKG Findings:: Sinus bradycardia 53. TN 1:30. QRS 108. QT 454. QTC 436. Normal axis. Normal QRS. No acute ST change. Medical Decision Making - Medical Decision Making Patient reevaluated. Patient and family updated. Case discussed with Dr. Davey, who will admit covering Dr. Thomas. - Lab Data Result diagrams: 12/13/21 11:56 12/13/21 11:56 Lab Results 12/13/21 12/13/21 12/13/21 Range/Units 11:56 11:56 11:56 WBC 7.0 (3.8-10.6) k/uL RBC 4.51 (4.30-5.90) m/uL Hgb 14.4 (13.0-17.5) gm/dL Hct 43.3 (39.0-53.0) % MCV 96.0 (80.0-100.0) fL MCH 32.0 (25.0-35.0) pg MCHC 33.4 (31.0-37.0) g/dL RDW 12.9 (11.5-15.5) % Plt Count 203 (150-450) k/uL MPV 9.0 Neutrophils % 70 % Lymphocytes % 19 % Monocytes % 6 % Eosinophils % 2 % Basophils % 0 % Neutrophils # 5.0 (1.3-7.7) k/uL Lymphocytes # 1.3 (1.0-4.8) k/uL Monocytes # 0.4 (0-1.0) k/uL Eosinophils # 0.2 (0-0.7) k/uL Basophils # 0.0 (0-0.2) k/uL PT 10.4 (9.0-12.0) sec INR 0.9 (<1.2) APTT 21.3 L (22.0-30.0) sec Sodium 142 (137-145) mmol/L Potassium 4.2 (3.5-5.1) mmol/L Chloride 112 H (98-107) mmol/L Carbon Dioxide 22 (22-30) mmol/L Anion Gap 8 mmol/L BUN 16 (9-20) mg/dL Creatinine 0.85 (0.66-1.25) mg/dL Est GFR (CKD-EPI)AfAm >90 (>60 ml/min/1.73 sqM) Est GFR (CKD-EPI)NonAf 90 (>60 ml/min/1.73 sqM) Glucose 85 (74-99) mg/dL POC Glucose (mg/dL) (70-110) mg/dL POC Glu Tungsten Tender ID Calcium 8.3 L (8.4-10.2) mg/dL Total Bilirubin 0.6 (0.2-1.3) mg/dL AST 18 (17-59) U/L ALT 20 (4-49) U/L Alkaline Phosphatase 99 (38-126) U/L Troponin I (0.000-0.034) ng/mL Total Protein 5.8 L (6.3-8.2) g/dL Albumin 3.6 (3.5-5.0) g/dL Coronavirus (PCR) (Not Detectd) 12/13/21 12/13/21 12/13/21 Range/Units 11:56 11:56 12:06 WBC (3.8-10.6) k/uL RBC (4.30-5.90) m/uL Hgb (13.0-17.5) gm/dL Hct (39.0-53.0) % MCV (80.0-100.0) fL MCH (25.0-35.0) pg MCHC (31.0-37.0) g/dL RDW (11.5-15.5) % Plt Count (150-450) k/uL MPV Neutrophils % % Lymphocytes % % Monocytes % % Eosinophils % % Basophils % % Neutrophils # (1.3-7.7) k/uL Lymphocytes # (1.0-4.8) k/uL Monocytes # (0-1.0) k/uL Eosinophils # (0-0.7) k/uL Basophils # (0-0.2) k/uL PT (9.0-12.0) sec INR (<1.2) APTT (22.0-30.0) sec Sodium (137-145) mmol/L Potassium (3.5-5.1) mmol/L Chloride (98-107) mmol/L Carbon Dioxide (22-30) mmol/L Anion Gap mmol/L BUN (9-20) mg/dL Creatinine (0.66-1.25) mg/dL Est GFR (CKD-EPI)AfAm (>60 ml/min/1.73 sqM) Est GFR (CKD-EPI)NonAf (>60 ml/min/1.73 sqM) Glucose (74-99) mg/dL POC Glucose (mg/dL) 90 (70-110) mg/dL POC Glu Tungsten Tender ID Willing, Leesa Calcium (8.4-10.2) mg/dL Total Bilirubin (0.2-1.3) mg/dL AST (17-59) U/L ALT (4-49) U/L Alkaline Phosphatase (38-126) U/L Troponin I <0.012 (0.000-0.034) ng/mL Total Protein (6.3-8.2) g/dL Albumin (3.5-5.0) g/dL Coronavirus (PCR) Not Detected (Not Detectd) Disposition Clinical Impression: Cerebrovascular accident (CVA), Chest pain Disposition: ADMITTED IP TO THIS HOSP Is patient prescribed a controlled substance at d/c from ED?: No Referrals: None,Stated [REFERRING] - 1-2 days Time of Disposition: 13:29
[2021-12-13 12:08] LABS: Glucose,Whole Blood 90 mg/dL (70-110)
[2021-12-13 12:12] LABS: Basophils % (A) 0 %; Eosinophils # (A) 0.2 k/uL (0-0.7); Eosinophils % (A) 2 %; HCT 43.3 % (39.0-53.0); HGB 14.4 gm/dL (13.0-17.5); Lymphocytes # (A) 1.3 k/uL (1.0-4.8); Lymphocytes % (A) 19 %; MCHC 33.4 g/dL (31.0-37.0); Monocytes # (A) 0.4 k/uL (0-1.0); Monocytes % (A) 6 %; Neutrophils % (A) 70 %; Platelet Count 203 k/uL (150-450); RBC 4.51 m/uL (4.30-5.90); RDW 12.9 % (11.5-15.5)
[2021-12-13 12:22] LABS: ALT 20 U/L (4-49); AST 18 U/L (17-59); African American GFR (CKD) >90 (>60 ml/min/1.73 sqM); Albumin 3.6 g/dL (3.5-5.0); Alkaline Phosphatase 99 U/L (38-126); Anion Gap 8 mmol/L; Blood Urea Nitrogen 16 mg/dL (9-20); Calcium 8.3 mg/dL (8.4-10.2); Carbon Dioxide 22 mmol/L (22-30); Chloride 112 mmol/L (98-107); Glucose 85 mg/dL (74-99); Non-African American GFR(CKD) 90 (>60 ml/min/1.73 sqM); Potassium 4.2 mmol/L (3.5-5.1); Sodium 142 mmol/L (137-145); Total Bilirubin 0.6 mg/dL (0.2-1.3); Total Protein 5.8 g/dL (6.3-8.2)
--- NOTE | 2021-12-13 12:51 | CT ---
EXAMINATION TYPE: CT brain wo con for TPA CT DLP: 1213.8 mGycm, Automated exposure control for dose reduction was used. DATE OF EXAM: 12/13/2021 12:34 PM COMPARISON: CT brain 10/24/2017 CLINICAL INDICATION:Male, 66 years old with history of Neuro deficit, acute, stroke suspected, cva TECHNIQUE: Brain: Multiple axial CT images of the brain were obtained without IV contrast. Coronal sagittal refo rmats reviewed. FINDINGS: Brain: Extra-axial spaces: No abnormal extra-axial fluid collections. Ventricular system: Within normal limits Cerebral parenchyma: No acute intraparenchymal hemorrhage or mass effect. The hawkins-white junction is well differentiated. Cerebellum: Unremarkable. Mass effect: No evidence of midline shift. Intracranial vasculature: Atherosclerotic calcifications of the intracranial vessels. Soft tissues: Normal. Calvarium/osseous structures: No depressed skull fracture. Paranasal sinuses and mastoid air cells: Clear Visualized orbits: Orbital contents are intact. IMPRESSION: No acute intracranial process.
[2021-12-13 12:54] LABS: INR 0.9 (<1.2); Partial Thromboplastin Time 21.3 sec (22.0-30.0); Prothrombin Time 10.4 sec (9.0-12.0)
--- NOTE | 2021-12-13 13:14 | CT ---
EXAMINATION TYPE: CT angio head neck CT DLP: 542.9 mGycm, Automated exposure control for dose reduction was used. DATE OF EXAM: 12/13/2021 12:57 PM COMPARISON: CT head of the same date. CLINICAL INDICATION:Male, 66 years old with history of Neuro deficit, acute, stroke suspected. TECHNIQUE: Axially acquired helical CT angiogram of the head and neck was obtained with contrast util izing 75 cc of Isovue-370 administered intravenously. Axial images are supplemented with 3D reconstru ctions which were post-processed at an independent workstation. NASCET criteria used. FINDINGS: CTA HEAD: No evidence of acute intracranial hemorrhage, mass effect, or midline shift. The ventricles, sulci, a nd cisterns are unremarkable. The visualized portions of the internal carotid arteries, middle cerebral arteries, anterior cerebral arteries, and posterior cerebral arteries are patent. The basilar and vertebral arteries are patent. Vertebral arteries are codominant. CTA NECK: Right Carotid System: The common carotid artery and external carotid artery are patent. The carotid bifurcation demonstrate s no evidence of hemodynamically significant stenosis. Minimal calcified and noncalcified plaque invo lving the proximal internal carotid artery. The remaining portions of the internal carotid artery dem onstrate normal size without significant narrowing. Left Carotid System: The common carotid artery and external carotid artery are patent. The carotid bifurcation demonstrate s no evidence of hemodynamically significant stenosis. Minimal calcified and noncalcified plaque invo lving the proximal internal carotid artery. The remaining portions of the internal carotid artery dem onstrate normal size without significant narrowing. Vertebral arteries are patent without evidence hemodynamically significant stenosis. There is a three-vessel aortic arch. The origins of the great vessels are patent. No evidence of hemo dynamically significant stenosis. Mild centrilobular emphysematous changes in the visualized lungs. 1.4 cm hypodense nodule within the left thyroid lobe. IMPRESSION: 1. No evidence of dissection of the cervical internal carotid arteries or vertebral arteries or any e vidence of significant stenosis at the carotid bifurcations. 2. No evidence of high-grade stenosis or intracranial aneurysm. 3. COPD changes. 4. 1.4 cm hypodense nodule in the left thyroid lobe. Consider nonemergent thyroid ultrasound for furt her evaluation.
[2021-12-13] MEDS ORDERED: ASPIRIN 325 MG TAB PO STA (13:29)
--- NOTE | 2021-12-13 13:31 | XR ---
EXAMINATION TYPE: XR chest 1V portable DATE OF EXAM: 12/13/2021 COMPARISON: NONE HISTORY: Altered mental status TECHNIQUE: Single frontal view of the chest is obtained. FINDINGS: There is no focal air space opacity, pleural effusion, or pneumothorax seen. The cardiac silhouette size is within normal limits. The osseous structures are intact. AC joint arthropathy. A therosclerotic change aorta. Diffuse osteopenia. IMPRESSION: No acute process.
--- NOTE | 2021-12-13 14:34 | P.CRDCN ---
History of Present Illness Consult date: 12/13/21 History of present illness: HISTORY OF PRESENT ILLNESS: This is a 66 year old male with a past medical history significant for coronary artery disease with previous stenting to the RCA in May 2020, hyperlipidemia, recurrent chest pain, and nicotine dependence. Patient follows in the office with Dr. Agustin. We have been asked to see the patient in consultation for chest pain. Patient examined at the bedside. Patient reports he moved to [place] a few months ago. He states he was recently diagnosed with pneumonia while down in [place]. He states he is currently back in [place] to finish moving some of his belongings. He states he was still not feeling well from his pneumonia so he decided to make a doctor's appointment with his primary care physician. He states as he was getting called back to the examination room, he began to have numbness and tuning of his right lower extremity. He states he was unable to move his right leg. He denied any other neurological symptoms. Patient continues to report some numbness and tingling of his right lower extremity time of examination. The patient currently denies any chest pain or pressure. However, he states he has had some intermittent chest pain over the past year. He did undergo a heart catheterization in May 2020 and was found to have an inferior STEMI and underwent stent placement to the RCA. Patient had a repeat heart catheterization given his recurrent chest pain with iFR which was normal. The patient states he is currently not taking any cardiac medications. The patient also reports she is a current smoker and smokes approximately half a pack of cigarettes every 12 days. The patient has a history of sinus bradycardia and has not been able to tolerate beta blockers on an outpatient basis * EKG reveals sinus bradycardia with no signs of acute ischemia * Chest xray negative for acute process * Laboratory data: WBC 7.0. Hemoglobin 14.4. Platelet count 203. Sodium 142. Potassium 4.2. BUN 16. Creatinine 0.85. Troponin negative 1. * Current home cardiac medications include none * Most recent echocardiogram obtained in May 2020 revealed ejection fraction 50-55%, basal inferior LV wall hypokinesis, mid inferior LV wall hypokinesis, mild MR, mild TR * Cardiac catheterization history: January 2021 revealing mild coronary artery disease with patent RCA stents. iFr negative of the RCA, acute marginal, ramus, circumflex, and LAD. Bridging of LAD noted. * Patient underwent Lexiscan in March 2021 revealing fixed inferior perfusion defect consistent with diaphragmatic attenuation artifact. No reversible ischemia noted REVIEW OF SYSTEMS: At the time of my exam: CONSTITUTIONAL: Denies fever or chills. HEENT: Denies blurred vision, vision changes, or eye pain. Denies hemoptysis CARDIOVASCULAR: Denies chest pain. Denies orthopnea. Denies PND. Denies palpitations RESPIRATORY: Denies shortness of breath. GASTROINTESTINAL: Denies abdominal pain. Denies nausea or vomiting. HEMATOLOGIC: Denies bleeding disorders. GENITOURINARY: Denies any blood in urine. SKIN: Denies pruitis. Denies rash. PHYSICAL EXAM: VITAL SIGNS: Reviewed. GENERAL: Well-developed in no acute distress. HEENT: Head is normocephalic. Pupils are equal, round. Sclerae anicteric. Mucous membranes of the mouth are moist. Neck supple. No JVD or thyromegaly LUNGS: Respirations even and unlabored. Lungs essentially clear to auscultation bilaterally. HEART: Regular rate and rhythm. S1 and S2 heard. ABDOMEN: Soft. Nondistended. Nontender. EXTREMITIES: Normal range of motion. No clubbing or cyanosis. Peripheral pulses intact. No lower extremity edema NEUROLOGIC: Awake and alert. Oriented x 3. ASSESSMENT: Right lower extremity weakness with numbness and tingling Recent diagnosis of pneumonia Coronary artery disease with previous stenting of the RCA Hyperlipidemia History of sinus bradycardia, unable to tolerate beta blockers on an outpatient basis Nicotine dependence Medication noncompliance, patient states he is not currently taking any cardiac medications PLAN: Obtain 2-D echo to assess cardiac structure and function Aspirin has been ordered per ER physician Add Lipitor 80 mg daily Trend troponins Lipid panel ordered Neurology consulted. Await evaluation Further recommendations pending patient's course Nurse practitioner note has been reviewed by physician. Signing provider agrees with the documented findings, assessment, and plan of care. Past Medical History Past Medical History: Myocardial Infarction ([place]), Pneumonia, Rheumatoid Arthritis ([place]) Additional Past Medical History / Comment(s): freq diarrhea and SOB,hx 9-6-15-FX RT HIP d/t fall, HX RT KIDNEY CA- no chemo, no radiation. hx of shingels approx 3 years ago affected lt side of face Last Myocardial Infarction Date:: 05-25-2020 History of Any Multi-Drug Resistant Organisms: None Reported Past Surgical History: Heart Catheterization With Stent, Joint Replacement, Orthopedic Surgery Additional Past Surgical History / Comment(s): RT NEPHRECTOMY,RT KNEE REPLACE, ROT CUFF REPAIR LT,LT HAND REMOVAL OF A NAIL,MULT ORTHOSCOPIC SURG MEGAN KNEES, 01-17-15 CLOSED REDUCTION/PINNING OF RT HIP Past Anesthesia/Blood Transfusion Reactions: Motion Sickness, Postoperative Nausea & Vomiting (PONV) Additional Past Anesthesia/Blood Transfusion Reaction / Comment(s): never recieved blood. Date of Last Stent Placement:: 05-25-2020 Past Psychological History: No Psychological Hx Reported Smoking Status: Former smoker Past Alcohol Use History: Occasional Past Drug Use History: None Reported - Past Family History Mother Family Medical History: Cancer Father Family Medical History: Cancer, Deep Vein Thrombosis (DVT) Medications and Allergies Home Medications Medication Instructions Recorded Confirmed Type Multivitamin/Iron/Folic Acid 1 tab PO DAILY 10/24/17 12/13/21 History [Centrum Complete Multivit Tab] traMADol HCL [Ultram] 50 mg PO Q8H PRN 10/24/17 12/13/21 History Ibuprofen 600 mg PO TID PRN 01/25/21 12/13/21 History Albuterol Inhaler [Ventolin Hfa 2 puff INHALATION RT-Q6H PRN 12/13/21 12/13/21 History Inhaler] Albuterol Nebulized [Ventolin 2.5 mg INHALATION RT-TID PRN 12/13/21 12/13/21 History Nebulized] Cyanocobalamin (Vitamin B-12) 1,000 mcg PO DAILY 12/13/21 12/13/21 History [Vitamin B-12] Allergies Allergy/AdvReac Type Severity Reaction Status Date / Time No Known Allergies Allergy Verified 12/13/21 12:09 Physical Exam Vitals: Vital Signs Temp Pulse Resp BP Pulse Ox 12/13/21 13:10 51 L 20 123/73 97 12/13/21 13:00 50 L 20 112/65 97 12/13/21 12:50 51 L 20 125/69 97 12/13/21 12:40 51 L 20 122/66 98 12/13/21 12:30 52 L 20 127/79 98 12/13/21 12:20 51 L 20 124/69 12/13/21 12:10 53 L 20 130/52 98 12/13/21 12:00 57 L 20 138/95 97 12/13/21 11:51 58 L 20 98 12/13/21 11:43 98.1 F 62 18 138/95 98 Intake and Output 12/12/21 12/13/21 12/13/21 22:59 06:59 14:59 Other: Weight 86.5 kg Results 12/13/21 11:56 12/13/21 11:56 Cardiac Enzymes 12/13/21 12/13/21 Range/Units 11:56 11:56 AST 18 (17-59) U/L Troponin I <0.012 (0.000-0.034) ng/mL Coagulation 12/13/21 Range/Units 11:56 PT 10.4 (9.0-12.0) sec APTT 21.3 L (22.0-30.0) sec CBC 12/13/21 Range/Units 11:56 WBC 7.0 (3.8-10.6) k/uL RBC 4.51 (4.30-5.90) m/uL Hgb 14.4 (13.0-17.5) gm/dL Hct 43.3 (39.0-53.0) % Plt Count 203 (150-450) k/uL Comprehensive Metabolic Panel 12/13/21 Range/Units 11:56 Sodium 142 (137-145) mmol/L Potassium 4.2 (3.5-5.1) mmol/L Chloride 112 H (98-107) mmol/L Carbon Dioxide 22 (22-30) mmol/L BUN 16 (9-20) mg/dL Creatinine 0.85 (0.66-1.25) mg/dL Glucose 85 (74-99) mg/dL Calcium 8.3 L (8.4-10.2) mg/dL AST 18 (17-59) U/L ALT 20 (4-49) U/L Alkaline Phosphatase 99 (38-126) U/L Total Protein 5.8 L (6.3-8.2) g/dL Albumin 3.6 (3.5-5.0) g/dL Current Medications Generic Name Dose Route Start Last Admin Trade Name Freq PRN Reason Stop Dose Admin Aspirin 325 mg 12/14/21 09:00 Aspirin 325 Mg Tab PO DAILY NATHAN Intake and Output 12/12/21 12/13/21 12/13/21 22:59 06:59 14:59 Other: Weight 86.5 kg Patient Weight 12/14/21 06:59 Weight 86.5 kg 12/13/21 11:56 12/13/21 11:56
[2021-12-13 18:29] LABS: T4, Free (Free Thyroxine) 1.61 ng/dL (0.78-2.19)
[2021-12-13] MEDS ORDERED: ATORVASTATIN 80 MG TAB PO SCH (21:00)
[2021-12-13] MEDS ORDERED: traMADol 50 MG TAB PO PRN (22:42)
[2021-12-13] MEDS ORDERED: IPRATROPIUM-ALBUTEROL 3 ML NEB INHALATION PRN (22:43)
--- NOTE | 2021-12-13 22:55 | P.HPIM ---
History of Present Illness H&P Date: 12/13/21 Chief Complaint: Right leg weakness Patient is a 66-year-old male with a known history of PA, coronary artery disease status post stent placement, rheumatoid arthritis, osteoarthritis, history of right kidney cancer status post nephrectomy and prior history of smoking was brought to ER by EMS due to right leg weakness. Patient was also complaining of numbness and tingling sensation in the right lower extremity. Denied any complaints of back pain. Patient was at his physician's office for a follow-up visit due to recent diagnosis of pneumonia and chest congestion and wheezing, cough. Patient completed antibiotic course and steroid course. Patient was unable to stand from sitting position due to severe right leg weakness. Denies any slurred speech. No facial weakness. No complaints of visual disturbances. No headache. No shaking movements noted. No witnessed seizures. No fever no chills. Patient is still complaining of chest congestion and cough without any sputum production. Patient complained of chest discomfort mainly left retrosternal region as per EMS and was given nitroglycerin sublingual which seemed to improve his discomfort. On admission blood pressure 128/60 pulse 53 respiration 18 and pulse ox 94% on room air. Laboratory data showed WBC 7.0 hemoglobin 14.4 and platelets 203 INR 0.9 sodium 142 potassium 4.2 chloride 112 bicarb is 22 BUN 16 and creatinine 0.85 and total bilirubin level is 8.3 Troponin x3 negative TSH and free T4 within normal limits. Coronavirus PCR not detected. CT head showed no acute intracranial process. CT angiogram LV head and neck showed no evidence of dissection of the cervical internal carotid arteries or vertebral arteries or any other evidence of significant stenosis at the carotid bifurcations. COPD changes. No evidence of high-grade stenosis or intracranial aneurysm. 1.4 cm hypodense nodule in the left thyroid lobe. Consider nonemergent thyroid ultrasound for further evaluation. Chest x-ray showed no acute process EKG showed sinus bradycardia. Review of Systems Constitutional: Patient denies any fever or chills . Generalized weakness. Abdomen: Patient denied any nausea or vomiting or abd. pain Cardiovascular: Patient denies any chest pain or short of breath no palpitations. Respiratory: patient denied any cough is from production. No shortness of bing ath Neurologic: Patient denied any headache.Right leg weakness. Numbness and tingling sensation. Musculoskeletal: Patient denies any complaints of joint swelling or deformity. Skin: Negative Psychiatric: Negative Endocrine: No heat or cold intolerance. No recent weight gain. Genitourinary: No dysuria or hematuria. All other 14 point ROS negative except the above Past Medical History Past Medical History: Myocardial Infarction ([place]), Pneumonia, Rheumatoid Arthritis ([place]) Additional Past Medical History / Comment(s): freq diarrhea and SOB,hx 01-09-15-FX RT HIP d/t fall, HX RT KIDNEY CA- no chemo, no radiation. hx of shingels approx 3 years ago affected lt side of face Last Myocardial Infarction Date:: 05-25-2020 History of Any Multi-Drug Resistant Organisms: None Reported Past Surgical History: Heart Catheterization With Stent, Joint Replacement, Orthopedic Surgery Additional Past Surgical History / Comment(s): RT NEPHRECTOMY,RT KNEE REPLACE, ROT CUFF REPAIR LT,LT HAND REMOVAL OF A NAIL,MULT ORTHOSCOPIC SURG MEGAN KNEES, 01-17-15 CLOSED REDUCTION/PINNING OF RT HIP Past Anesthesia/Blood Transfusion Reactions: Motion Sickness, Postoperative Nausea & Vomiting (PONV) Additional Past Anesthesia/Blood Transfusion Reaction / Comment(s): never recieved blood. Date of Last Stent Placement:: 05-25-2020 Past Psychological History: No Psychological Hx Reported Additional Psychological History / Comment(s): pt lives with in a single level home that has 3 proch steps. pt drives. no past service. 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 no home care services, no medical equipment. Smoking Status: Former smoker Past Alcohol Use History: Occasional Additional Past Alcohol Use History / Comment(s): STARTED SMOKING AT AGE 14(1970) and quit at age 61(2017) Past Drug Use History: None Reported Additional Drug Use History / Comment(s): . - Past Family History Mother Family Medical History: Cancer Father Family Medical History: Cancer, Deep Vein Thrombosis (DVT) Medications and Allergies Home Medications Medication Instructions Recorded Confirmed Type Multivitamin/Iron/Folic Acid 1 tab PO DAILY 10/24/17 12/13/21 History [Centrum Complete Multivit Tab] traMADol HCL [Ultram] 50 mg PO Q8H PRN 10/24/17 12/13/21 History Ibuprofen 600 mg PO TID PRN 01/25/21 12/13/21 History Albuterol Inhaler [Ventolin Hfa 2 puff INHALATION RT-Q6H PRN 12/13/21 12/13/21 History Inhaler] Albuterol Nebulized [Ventolin 2.5 mg INHALATION RT-TID PRN 12/13/21 12/13/21 History Nebulized] Cyanocobalamin (Vitamin B-12) 1,000 mcg PO DAILY 12/13/21 12/13/21 History [Vitamin B-12] Allergies Allergy/AdvReac Type Severity Reaction Status Date / Time No Known Allergies Allergy Verified 12/13/21 12:09 Physical Exam Vitals: Vital Signs Temp Pulse Pulse Resp BP BP Pulse Ox 12/13/21 20:00 98.0 F 54 L 18 126/56 97 12/13/21 19:58 98.2 F 54 L 18 126/65 97 12/13/21 18:19 97.8 F 57 L 18 151/86 98 12/13/21 17:00 98.4 F 56 L 18 125/66 95 12/13/21 16:00 98.4 F 53 L 18 128/60 95 12/13/21 15:10 98.4 F 55 L 18 124/73 97 12/13/21 15:00 54 L 18 108/67 97 12/13/21 14:50 55 L 18 118/70 97 12/13/21 14:40 54 L 18 116/68 97 12/13/21 14:30 60 18 139/66 97 12/13/21 14:20 98.4 F 63 18 125/82 12/13/21 14:10 61 18 132/56 12/13/21 14:00 60 18 118/66 12/13/21 13:50 50 L 18 117/89 96 12/13/21 13:40 52 L 18 117/67 97 12/13/21 13:30 52 L 18 114/71 97 12/13/21 13:20 98.3 F 51 L 18 127/79 96 12/13/21 13:10 51 L 20 123/73 97 12/13/21 13:00 50 L 20 112/65 97 12/13/21 12:50 51 L 20 125/69 97 12/13/21 12:40 51 L 20 122/66 98 12/13/21 12:30 52 L 20 127/79 98 12/13/21 12:20 51 L 20 124/69 12/13/21 12:10 53 L 20 130/52 98 12/13/21 12:00 57 L 20 138/95 97 12/13/21 11:51 58 L 20 98 12/13/21 11:43 98.1 F 62 18 138/95 98 Intake and Output 12/13/21 12/13/21 12/13/21 06:59 14:59 22:59 Intake Total 240 Balance 240 Intake: Oral 240 Other: # Voids 1 Weight 86.5 kg 86.5 kg PHYSICAL EXAMINATION: Patient is lying in the bed comfortably, no acute distress, awake alert and oriented.. HEENT: Normocephalic. Neck is supple. Pupils reactive. Nostrils clear. Oral cavity is moist. Neck reveals no JVD, carotid bruits, or thyromegaly. CHEST EXAMINATION: Trachea is central. Symmetrical expansion. Lung ying clear to auscultation and percussion. CARDIAC: Normal S1, S2 with no gallops. No murmurs ABDOMEN: Soft. Bowel sounds present. Nontender. No organomegaly. No abdominal bruits. Extremities: reveal no edema. No clubbing or cyanosis Neurologically awake, alert, oriented x3. Cranial nerves intact. Right lower extremity is slightly weaker than left. Muscle strength 5 out of 5. Skin: No rash or skin lesions. Psychiatric: Coperative. Nonsuicidal, anxious. Musculoskeletal: No joint swelling or deformity. Normal range of motion. Results CBC & Chem 7: 12/13/21 11:56 12/13/21 11:56 Labs: Abnormal Lab Results - Last 24 Hours (Table) 12/13/21 12/13/21 Range/Units 11:56 11:56 APTT 21.3 L (22.0-30.0) sec Chloride 112 H (98-107) mmol/L Calcium 8.3 L (8.4-10.2) mg/dL Total Protein 5.8 L (6.3-8.2) g/dL Thrombosis Risk Factor Assmnt - DVT/VTE Prophylaxis DVT/VTE Prophylaxis: Pharmacologic Prophylaxis ordered - Choose All That Apply Any of the Below Risk Factors Present?: No Each Risk Factor Represents 2 Points: Age 61-74 years Other congenital or acquired thrombophilia - If yes, enter type in comment: No Thrombosis Risk Factor Assessment Total Risk Factor Score: 2 Thrombosis Risk Factor Assessment Level: Low Risk Assessment and Plan Assessment: Right lower extremity weakness with numbness and tingling sensation. Possible TIA versus lumbar radiculopathy. Recent diagnosis with pneumonia and bronchospasm status post antibiotic and steroid course. Possible underlying COPD Atypical chest pain. Ruled out ACS. Coronary artery disease history of stent placement to RCA and history of PA Sinus bradycardia unable to tolerate beta-blockers. Ongoing nicotine addiction Rheumatoid arthritis History of right nephrectomy due to RCC Medication noncompliance DVT prophylax with heparin subcu Plan: Patient will be continued on telemetry monitoring. Serial EKG and troponin x2 negative. Stroke work-up including CT head and CT angio of the head and neck showed no evidence acute process or stenosis. Current with aspirin and statins. Neurology and cardiology was consulted. 2D echocardiogram was ordered. Follow-up closely. Time with Patient: Greater than 30
[2021-12-13] MEDS: HEPARIN SODIUM,PORCINE/PF 5,000 UNIT/0.5 ML SYRINGE SQ SCH (23:24)
[2021-12-13] MEDS: FAMOTIDINE 20 MG TAB PO SCH (23:24)
--- NOTE | 2021-12-14 08:18 | P.CNNES ---
History of Present Illness Consult date: 12/13/21 Requesting physician: Avery Bautista Reason for Consult: CVA History of Present Illness: Patient is a 66-year-old male came to the hospital by ambulance today at 11:42 AM. Patient states that he has gone to [place] for about 1-1/2 months. While he was in [place], he developed pneumonia and was given course of antibiotics and steroids. Both of these medications he ran out on 12/08/2021. On Saturday he was sitting inside his home, and was cool inside, but he broke out in sweat lasting for 15 minutes. On Saturday and Saturday, he could hardly breathe. On Saturday while in [place], he made an appointment to see his primary physician Dr. Thomas for this morning (Saturday). On Saturday he started driving back and arrived in [place] yesterday. Yesterday he had no energy, was having a headache. He was feeding very shaky. He has been having intermittent sweating off and on for 1 week, only when he exerts himself that he sweats. Also gets palpitations and chest pressure and discomfort but no pain. Patient states that he was sitting at Dr. Thomas's office this morning when he was just sitting in the chair and noticed that he could not move his right leg. His right leg was completely numb. It was not that he was sitting for long time, only just for 5 minutes before the symptoms started. Also noticed weakness of the right arm. There was no slurred speech, facial droop or visual problems. EMS was called. As per EMS flow sheet patient was complaining of substernal chest pressure along with weakness in both his right leg and right arm. Patient has mentioned that he hasn't been feeling well since Saturday having chest pressure that gradually has gotten worse. Patient's vitals at the scene was blood pressure 150/72 pulse rate 58, respiration 18 saturation 99%, was given aspirin, nitroglycerin. Vital signs on arrival blood pressure 138/95, pulse rate 62 temperature 98.1. Blood test shows normal CBC, PT/PTT, electrolytes are normal, renal and hepatic panel normal, troponin is negative. Carl virus PCR negative. CT head showed no acute intracranial process. Chest x-ray negative. CTA of head and neck negative. EKG shows sinus bradycardia. Stroke code was activated, but patient was considered not a candidate for TPA, as his symptoms have resolved. Patient states that his symptoms completely resolved in around 45 minutes. Patient has history of TIA on 10/24/2017. Patient has presented with sense of disequilibrium, numbness involving left side of the face and difficulty with speech and language functions. Aspirin was recommended. MRI of the brain was negative at that time. Patient's home medications include B12, albuterol, ibuprofen, multivitamins and tramadol. Patient currently not taking any antiplatelet medication. He used to take aspirin, but he quit taking it about a year ago. Patient states he has history of a CVA in 2018. He was hospitalized for 3 days. Patient has smoked 1 pack per day since age 16, cutback to 1/4 pack per day in the last 3 months. He drinks alcohol once in a while. Denies any drug use. Patient denies any hypertension, diabetes or cholesterol issues. Review of Systems Recent pneumonia, complaining of shortness of breath, profuse sweating, no fever or chills. Lack of energy. Sinus pressure, like the sinuses will be pushed out. All other review of systems reviewed, unremarkable except as mentioned pertinent positives and negatives in the HPI. Past Medical History Past Medical History: Myocardial Infarction ([place]), Pneumonia, Rheumatoid Arthritis (RA) Additional Past Medical History / Comment(s): freq diarrhea and SOB,hx 01-09-FX RT HIP d/t fall, HX RT KIDNEY CA- no chemo, no radiation. hx of shingels approx 3 years ago affected lt side of face Last Myocardial Infarction Date:: 05-25-2020 History of Any Multi-Drug Resistant Organisms: None Reported Past Surgical History: Heart Catheterization With Stent, Joint Replacement, Orthopedic Surgery Additional Past Surgical History / Comment(s): RT NEPHRECTOMY,RT KNEE REPLACE, ROT CUFF REPAIR LT,LT HAND REMOVAL OF A NAIL,MULT ORTHOSCOPIC SURG MEGAN KNEES, 01-17-15 CLOSED REDUCTION/PINNING OF RT HIP Past Anesthesia/Blood Transfusion Reactions: Motion Sickness, Postoperative Nausea & Vomiting (PONV) Additional Past Anesthesia/Blood Transfusion Reaction / Comment(s): never recieved blood. Date of Last Stent Placement:: 05-25-2020 Past Psychological History: No Psychological Hx Reported Smoking Status: Former smoker Past Alcohol Use History: Occasional Past Drug Use History: None Reported - Past Family History Mother Family Medical History: Cancer Father Family Medical History: Cancer, Deep Vein Thrombosis (DVT) Medications and Allergies Home Medications Medication Instructions Recorded Confirmed Type Multivitamin/Iron/Folic Acid 1 tab PO DAILY 10/24/17 12/13/21 History [Centrum Complete Multivit Tab] traMADol HCL [Ultram] 50 mg PO Q8H PRN 10/24/17 12/13/21 History Ibuprofen 600 mg PO TID PRN 01/25/21 12/13/21 History Albuterol Inhaler [Ventolin Hfa 2 puff INHALATION RT-Q6H PRN 12/13/21 12/13/21 History Inhaler] Albuterol Nebulized [Ventolin 2.5 mg INHALATION RT-TID PRN 12/13/21 12/13/21 History Nebulized] Cyanocobalamin (Vitamin B-12) 1,000 mcg PO DAILY 12/13/21 12/13/21 History [Vitamin B-12] Allergies Allergy/AdvReac Type Severity Reaction Status Date / Time No Known Allergies Allergy Verified 12/13/21 12:09 Physical Examination - Vital Signs Vital Signs: Vital Signs Temp Pulse Resp BP Pulse Ox 12/13/21 15:10 98.4 F 55 L 18 124/73 97 12/13/21 15:00 54 L 18 108/67 97 12/13/21 14:50 55 L 18 118/70 97 12/13/21 14:40 54 L 18 116/68 97 12/13/21 14:30 60 18 139/66 97 12/13/21 14:20 98.4 F 63 18 125/82 12/13/21 14:10 61 18 132/56 12/13/21 14:00 60 18 118/66 12/13/21 13:50 50 L 18 117/89 96 12/13/21 13:40 52 L 18 117/67 97 12/13/21 13:30 52 L 18 114/71 97 12/13/21 13:20 98.3 F 51 L 18 127/79 96 12/13/21 13:10 51 L 20 123/73 97 12/13/21 13:00 50 L 20 112/65 97 12/13/21 12:50 51 L 20 125/69 97 12/13/21 12:40 51 L 20 122/66 98 12/13/21 12:30 52 L 20 127/79 98 12/13/21 12:20 51 L 20 124/69 12/13/21 12:10 53 L 20 130/52 98 12/13/21 12:00 57 L 20 138/95 97 12/13/21 11:51 58 L 20 98 12/13/21 11:43 98.1 F 62 18 138/95 98 Intake and Output 12/13/21 12/13/21 12/13/21 06:59 14:59 22:59 Other: Weight 86.5 kg Patient is an elderly male, in no acute distress. He does get episodes in which he starts sweating for no reason. At least 2 were witnessed by myself. His skin is cold and clammy at that time and face does appears pale. Patient is alert awake oriented to time place and person. Speech and language functions are normal. Attention, concentration and fund of knowledge is adequate. No aphasia or dysarthria. He can name and repeat very well. On cranial examination, pupils are equal, round and reacting to light, visual ying are full on confrontation, extraocular muscles are intact with no nystagmus. Face is symmetric, tongue protrudes to the midline. Palatal elevation and sensation normal, hearing and shoulder shrug normal, facial sensation normal. Shoulder shrug normal. On muscle strength testing, there is no pronator drift and the strength is normal in arms and legs distally and proximally. Deep tendon reflexes are symmetric, 1 at the brachioradialis, 1+ at the biceps, trace at the knees 0 ankles and plantars downgoing bilaterally. Sensory to touch is equal with no neglect. Cerebellar function showed no ataxia for [id number] testing. No dysdiadochokinesia. Tone and bulk of muscles normal. Gait normal. On general examination, there is no carotid bruit or murmur, S1-S2 audible. Abdomen is soft nontender. No organomegaly, bowel sounds present. Chest is clear to auscultation. Peripheral pulses are present. No edema. Results - Laboratory Findings CBC and BMP: 12/13/21 11:56 12/13/21 11:56 Abnormal Lab Findings: Abnormal Labs 12/13/21 12/13/21 11:56 11:56 APTT 21.3 L Chloride 112 H Calcium 8.3 L Total Protein 5.8 L Assessment and Plan Assessment: * Probable TIA manifesting with transient weakness of right leg > right arm, resolved in 45 minutes. At present patient has no symptoms, NIH stroke scale is 0. Patient was not a candidate for TPA. * History of TIA in October 2017 * Chest pain, rule out CAD. Cardiology on board. * Intermittent sweating, rule out thyroid dysfunction. * Tobacco use Plan: * Resume aspirin 325 mg daily. * Fasting lipid panel, hemoglobin A1c * 2-D echo rule out embolic source. * CTA of neck showed no evidence of dissection of the cervical internal carotid arteries or vertebral arteries or any evidence of significant stenosis at the carotid bifurcations. CTA of the head showed no evidence of high-grade stenosis or intracranial aneurysm. Thyroid nodule, which we will defer to IM. * Recommend complete tobacco cessation. * Check TSH and free T4. * Telemetric monitoring, rule out arrhythmia. * DVT prophylaxis: Patient on heparin subcu. * Neurology will follow. Thank you for the consult.
--- NOTE | 2021-12-14 08:20 | CT ---
EXAMINATION TYPE: CT lumbar spine wo con CT DLP: 936.3 mGycm, Automated exposure control for dose reduction was used. DATE OF EXAM: 12/14/2021 8:10 AM COMPARISON: MRI 06/13/2011 CLINICAL INDICATION:Male, 66 years old with history of RT leg weakness; TECHNIQUE: Multiple axial images were obtained from the midportion of T11 through the sacroiliac anirudh nts. Soft tissue and bone windows in coronal and sagittal planes were obtained and reviewed. 3-D ref ormats of the bones were created on a separate workstation and submitted for review. FINDINGS: Alignment: There are 5 lumbar type vertebral bodies within normal alignment. Bone: No evidence of fracture is identified. Multilevel osteophyte formation and vacuum disc phenome non and joint space narrowing. Findings most pronounced at L4-L5 with endplate sclerosis also present . There is multilevel facet joint arthropathy. Left S3 perineural cyst is present. Atherosclerosis of the arterial vasculature. Discs: T12-L1: No spinal canal or neural foraminal stenosis is identified. L1-L2: Disc bulge with osteophyte and facet joint arthropathy result in mild spinal canal stenosis. T he neural foramen are mildly narrowed bilaterally. L2-L3: Disc bulge with osteophyte and facet joint arthropathy result in mild spinal canal stenosis. T he neural foramen are mildly narrowed bilaterally. L3-L4: Disc bulge with osteophytes and facet joint arthropathy result in moderate spinal canal stenos is. The neural foramen are mild narrowed bilaterally. L4-L5: Disc bulge with osteophytes and facet joint arthropathy result in moderate spinal canal stenos is. The neural foramen are moderate narrowed bilaterally. L5-S1: Disc bulge with facet joint arthropathy result in mild spinal canal stenosis. The neural cheikh en are mildly narrowed bilaterally. Other: Right adrenal gland myelolipoma with peripheral desiccation likely sequela of prior trauma. He patic and renal cyst. Left nonobstructing calculi are present. . Scattered clonic diverticula present . IMPRESSION: 1. No evidence of fracture of the lumbar spine. 2. Multilevel disc degeneration changes most pronounced at L4-L5 with moderate spinal canal and moder ate bilateral neural foraminal stenosis.
--- NOTE | 2021-12-14 08:28 | CA ---
Transthoracic Echo Report Name: Vicente Ball Age: 66 Gender: M : 1955 Exam Date: 12/13/2021 14:03 Exam Location: [facility] Ht (in): 72 Wt (lb): 190 Ordering Physician: Avery Bautista DO Attending/Referring Phys: Ice Seller Eunice Garcia RDCS Procedure CPT: Indications: Thrombus Cardiac Hx: Technical Quality: Good Contrast 1: Total Dose (mL): Contrast 2: Total Dose (mL): MEASUREMENTS (Male / Female) Normal Values 2D ECHO LV Diastolic Diameter PLAX 4.6 cm 4.2 - 5.9 / 3.9 - 5.3 cm LV Systolic Diameter PLAX 3.0 cm IVS Diastolic Thickness 1.4 cm 0.6 - 1.0 / 0.6 - 0.9 cm LVPW Diastolic Thickness 1.2 cm 0.6 - 1.0 / 0.6 - 0.9 cm LV Relative Wall Thickness 0.6 RV Internal Dim ED PLAX 3.4 cm LA Systolic Diameter LX 3.5 cm 3.0 - 4.0 / 2.7 - 3.8 cm LA Volume 46.6 cm??? 18 - 58 / 22 - 52 cm??? M-MODE Aortic Root Diameter MM 3.4 cm MV E Point Septal Separation 0.5 cm AV Cusp Separation MM 2.3 cm DOPPLER AV Peak Velocity 147.4 cm/s AV Peak Gradient 8.7 mmHg MV Area PHT 2.8 cm??? Mitral E Point Velocity 111.1 cm/s Mitral A Point Velocity 66.9 cm/s Mitral E to A Ratio 1.7 MV Deceleration Time 273.8 ms MV E' Velocity 8.2 cm/s Mitral E to MV E' Ratio 13.6 TR Peak Velocity 234.4 cm/s TR Peak Gradient 22.0 mmHg Right Ventricular Systolic Press 26.8 mmHg FINDINGS Left Ventricle Left ventricular ejection fraction is estimated at 55-60 %. Left ventricular cavity size normal. Moderate concentric left ventricular hypertrophy. Right Ventricle Mild right ventricular dilatation. Right ventricular systolic pressure within normal limits. Right Atrium Normal right atrial size. Left Atrium Normal left atrial size. No evidence for an atrial septal defect. Mitral Valve Mitral annular calcification. Trace to mild mitral regurgitation. Aortic Valve Trileaflet aortic valve. No aortic valve stenosis or regurgitation. Tricuspid Valve Mild tricuspid regurgitation. Pulmonic Valve Pulmonic valve not well visualized. Pericardium Normal pericardium. No pericardial effusion. Aorta Normal size aortic root and proximal ascending aorta. CONCLUSIONS Concentric left ventricular hypertrophy with normal LV systolic function Previewed by: Dr. Nolan Schafer MD (Electronically Signed) Final Date: 14 December 2021 08:27
[2021-12-14] MEDS: HEPARIN SODIUM,PORCINE/PF 5,000 UNIT/0.5 ML SYRINGE SQ SCH (08:43)
[2021-12-14] MEDS: FAMOTIDINE 20 MG TAB PO SCH (08:44)
[2021-12-14] MEDS ORDERED: MULTIVITAMINS, THERA 1 EACH TAB PO SCH (09:00)
[2021-12-14] MEDS ORDERED: CYANOCOBALAMIN 500 MCG TAB PO SCH (09:00)
[2021-12-14] MEDS ORDERED: ASPIRIN 325 MG TAB PO SCH (09:00)
[2021-12-14 09:36] LABS: African American GFR (CKD) >90 (>60 ml/min/1.73 sqM); Anion Gap 9 mmol/L; Blood Urea Nitrogen 13 mg/dL (9-20); Calcium 8.8 mg/dL (8.4-10.2); Carbon Dioxide 23 mmol/L (22-30); Chloride 109 mmol/L (98-107); Glucose 91 mg/dL (74-99); Non-African American GFR(CKD) 89 (>60 ml/min/1.73 sqM); Potassium 4.7 mmol/L (3.5-5.1); Sodium 141 mmol/L (137-145)
--- NOTE | 2021-12-14 11:32 | P.PN ---
Subjective Progress Note Date: 12/14/21 Patient was seen for a follow-up. Patient offers no new complaints. He states that he feels better than yesterday. He denies any back pain. He gets only slight "twinge" in the back if he exerts otherwise has no back pain. No new focal symptoms. Objective - Vital Signs Vital signs: Vital Signs Temp 98.1 F 12/14/21 08:15 Pulse 52 L 12/14/21 08:15 Resp 16 12/14/21 08:15 BP 152/82 12/14/21 08:15 Pulse Ox 96 12/14/21 08:15 FiO2 Intake & Output 12/13/21 12/14/21 12/14/21 18:59 06:59 18:59 Intake Total 480 240 Balance 480 240 Weight 86.5 kg 86.5 kg Intake: Oral 480 240 Other: Voiding Method Toilet # Voids 2 - Exam Patient is an elderly male, in no acute distress. Patient is alert awake oriented to time place and person. Speech and language functions are normal. Attention, concentration and fund of knowledge is adequate. No aphasia or dysarthria. He can name and repeat very well. On cranial examination, pupils are equal, round and reacting to light, visual ying are full on confrontation, extraocular muscles are intact with no nystagmus. Face is symmetric, tongue protrudes to the midline. Palatal elevation and sensation normal, hearing is slightly decreased and shoulder shrug normal, facial sensation normal. On muscle strength testing, there is no pronator drift and the strength is darian l in arms and legs distally and proximally. Deep tendon reflexes are symmetric, 1 at the brachioradialis, 1+ at the biceps, trace at the knees 0 ankles and plantars downgoing bilaterally. Sensory to touch is equal with no neglect. Cerebellar function showed no ataxia for [id number] testing. No dysdiadochokinesia. Tone and bulk of muscles normal. Gait normal. On general examination, there is no carotid bruit or murmur, S1-S2 audible. Abdomen is soft nontender. No organomegaly, bowel sounds present. Chest is clear to auscultation. Peripheral pulses are present. No edema. - Labs CBC & Chem 7: 12/13/21 11:56 12/14/21 08:44 Labs: Abnormal Lab Results - Last 24 Hours (Table) 12/13/21 12/13/21 12/14/21 Range/Units 11:56 11:56 08:44 APTT 21.3 L (22.0-30.0) sec Chloride 112 H 109 H (98-107) mmol/L Calcium 8.3 L (8.4-10.2) mg/dL Total Protein 5.8 L (6.3-8.2) g/dL Assessment and Plan Assessment: * Probable TIA manifesting with transient weakness of right leg > right arm, resolved in 45 minutes. At present patient has no symptoms, NIH stroke scale is 0. Patient was not a candidate for TPA. * History of TIA in October 2017 * Chest pain, rule out CAD. Cardiology on board. * Intermittent sweating, rule out thyroid dysfunction. * Tobacco use Plan: * Resume aspirin 325 mg daily. * Fasting lipid panel with cholesterol 176, LDL 109, HDL 50 and triglycerides 81.4 on 08/28/2021. Repeat lipid panel from today pending. Continue Lipitor 80 mg daily. * Hemoglobin A1c 5.6 * 2-D echo revealed concentric LVH with normal left-ventricular systolic function with EF 55-60%. Normal left atrial size. No ASD. * CTA of neck showed no evidence of dissection of the cervical internal carotid arteries or vertebral arteries or any evidence of significant stenosis at the carotid bifurcations. CTA of the head showed no evidence of high-grade stenosis or intracranial aneurysm. Thyroid nodule, which we will defer to IM. * Recommend complete tobacco cessation. * TSH 0.593 and free T4 1.61, both normal. * Telemetric monitoring so far showing sinus bradycardia with no other arrhythmia. * Cardiology following for chest pain. * DVT prophylaxis: Patient on heparin subcu. * Neurologically clear for discharge.
--- NOTE | 2021-12-14 12:17 | P.PN ---
Subjective Progress Note Date: 12/14/21 HISTORY OF PRESENT ILLNESS: This is a 66 year old male with a past medical history significant for coronary artery disease with previous stenting to the RCA in May 2020, hyperlip idemia, recurrent chest pain, and nicotine dependence. Patient follows in the office with Dr. Agustin. We have been asked to see the patient in consultation for chest pain. Patient examined at the bedside. Patient reports he moved to [place] a few months ago. He states he was recently diagnosed with pneumonia while down in [place]. He states he is currently back in [place] to finish moving some of his belongings. He states he was still not feeling well from his pneumonia so he decided to make a doctor's appointment with his primary care physician. He states as he was getting called back to the examination room, he began to have numbness and tuning of his right lower extremity. He states he was unable to move his right leg. He denied any other neurological symptoms. Patient continues to report some numbness and tingling of his right lower extremity time of examination. The patient currently denies any chest pain or pressure. However, he states he has had some intermittent chest pain over the past year. He did undergo a heart catheterization in May 2020 and was found to have an inferior STEMI and underwent stent placement to the RCA. Patient had a repeat heart catheterization given his recurrent chest pain with iFR which was normal. The patient states he is currently not taking any cardiac medications. The patient also reports she is a current smoker and smokes approximately half a pack of cigarettes every 12 days. The patient has a history of sinus bradycard ia and has not been able to tolerate beta blockers on an outpatient basis * EKG reveals sinus bradycardia with no signs of acute ischemia * Chest xray negative for acute process * Laboratory data: WBC 7.0. Hemoglobin 14.4. Platelet count 203. Sodium 142. Potassium 4.2. BUN 16. Creatinine 0.85. Troponin negative 1. * Current home cardiac medications include none * Most recent echocardiogram obtained in May 2020 revealed ejection fraction 50-55%, basal inferior LV wall hypokinesis, mid inferior LV wall hypokinesis, mild MR, mild TR * Cardiac catheterization history: January 2021 revealing mild coronary artery disease with patent RCA stents. iFr negative of the RCA, acute marginal, ra mus, circumflex, and LAD. Bridging of LAD noted. * Patient underwent Lexiscan in March 2021 revealing fixed inferior perfusion defect consistent with diaphragmatic attenuation artifact. No reversible ischemia noted 12/14/2021 Patient examined this morning at the bedside. Patient denies chest pain or pressure. He denies shortness of breath. Patient's troponins are negative 3. Echocardiogram completed revealing ejection fraction 55-60%, trace to mild MR, mild TR. PHYSICAL EXAM: VITAL SIGNS: Reviewed. GENERAL: Well-developed in no acute distress. HEENT: Head is normocephalic. Pupils are equal, round. Sclerae anicteric. Mucous membranes of the mouth are moist. Neck supple. No JVD or thyromegaly LUNGS: Respirations even and unlabored. Lungs essentially clear to auscultation bilaterally. HEART: Regular rate and rhythm. S1 and S2 heard. ABDOMEN: Soft. Nondistended. Nontender. EXTREMITIES: Normal range of motion. No clubbing or cyanosis. Peripheral pulses intact. No lower extremity edema NEUROLOGIC: Awake and alert. Oriented x 3. ASSESSMENT: Right lower extremity weakness with numbness and tingling, possible TIA per neurology Recent diagnosis of pneumonia Coronary artery disease with previous stenting of the RCA Hyperlipidemia History of sinus bradycardia, unable to tolerate beta blockers on an outpatient basis Nicotine dependence Medication noncompliance, patient states he is not currently taking any cardiac medications PLAN: Acute coronary event has been ruled out Continue current cardiac medications Continue workup per neurology Patient is currently stable from a cardiac standpoint. We will sign off. Please reconsult if needed. Patient to follow up on an outpatient basis Nurse practitioner note has been reviewed by physician. Signing provider agrees with the documented findings, assessment, and plan of care. Objective - Vital Signs Vital signs: Vital Signs Temp 98.1 F 12/14/21 08:15 Pulse 52 L 12/14/21 08:15 Resp 16 12/14/21 08:15 BP 152/82 12/14/21 08:15 Pulse Ox 96 12/14/21 08:15 FiO2 Intake & Output 12/13/21 12/14/21 12/14/21 18:59 06:59 18:59 Intake Total 480 240 Balance 480 240 Weight 86.5 kg 86.5 kg Intake: Oral 480 240 Other: Voiding Method Toilet # Voids 2 - Labs CBC & Chem 7: 12/13/21 11:56 12/14/21 08:44 Labs: Abnormal Lab Results - Last 24 Hours (Table) 12/13/21 12/13/21 12/14/21 Range/Units 11:56 11:56 08:44 APTT 21.3 L (22.0-30.0) sec Chloride 112 H 109 H (98-107) mmol/L Calcium 8.3 L (8.4-10.2) mg/dL Total Protein 5.8 L (6.3-8.2) g/dL
[2021-12-14 15:41] LABS: Chol/HDL Ratio 3.28 Ratio; LDL Cholesterol,Calculated 70.7 mg/dL (0.0-131.0)
[2021-12-14 15:56] VITALS: BP 134/63; PULSE 55; RESP 15; TEMP 98.2
== END 2021-12-14 16:46 | disposition home or self-care (01) | DRG 69 ==
LOC: EC 11:42 → 3SCARD 13:29
PROVIDERS: ADMIT Internal Medicine; ATTEND Internal Medicine
DX: G45.9 Transient cerebral ischemic attack, unspecified (principal); G81.91 Hemiplegia, unspecified affecting right dominant side; I25.10 Atherosclerotic heart disease of native coronary artery without angina pectoris; E78.5 Hyperlipidemia, unspecified; R00.1 Bradycardia, unspecified; I08.1 Rheumatic disorders of both mitral and tricuspid valves; J44.9 Chronic obstructive pulmonary disease, unspecified; T50.996A Underdosing of other drugs, medicaments and biological substances, initial encounter; F17.210 Nicotine dependence, cigarettes, uncomplicated; E07.9 Disorder of thyroid, unspecified; Z20.822 Contact with and (suspected) exposure to COVID-19; R07.89 Other chest pain; M06.9 Rheumatoid arthritis, unspecified; Z96.651 Presence of right artificial knee joint; Z88.8 Allergy status to other drugs, medicaments and biological substances; Z91.14 Patient's other noncompliance with medication regimen; Z71.6 Tobacco abuse counseling; Z87.01 Personal history of pneumonia (recurrent); Z86.73 Personal history of transient ischemic attack (TIA), and cerebral infarction without residual deficits; Z79.899 Other long term (current) drug therapy; Z95.5 Presence of coronary angioplasty implant and graft; I25.2 Old myocardial infarction; Z87.81 Personal history of (healed) traumatic fracture; Z98.890 Other specified postprocedural states; Z85.528 Personal history of other malignant neoplasm of kidney; Z86.19 Personal history of other infectious and parasitic diseases; Z90.5 Acquired absence of kidney; Z80.9 Family history of malignant neoplasm, unspecified
CPT/HCPCS: 36415; 70450; 70496; 70498; 71045; 72131; 80048; 80053; 80061; 83036; 84439; 84443; 84484; 85025; 85610; 85730; 87635; 93005; 93306; 94760; 99285

== ENCOUNTER 2022-01-19 08:56 | Day surgery (SDC) | payer MEDICARE ==
[2022-01-19 10:27] VITALS: BP 137/78; PULSE 49; RESP 16; TEMP 97.9
--- NOTE | 2022-01-19 11:19 | US ---
ULTRASOUND GUIDED FNA THYROID BIOPSY: CLINICAL HISTORY: Left thyroid nodule FINDINGS: The procedure was explained to the patient. The risks, complications, benefits and alternatives were discussed and any questions were answered. Informed consent was obtained. Patient was placed supin e on the ultrasound table and prepped and draped in the usual sterile fashion. Utilizing a 25 gauge needle, five passes were made into the requested left thyroid nodule. Patient was stable throughout the procedure. Pathology is pending. All elements of maximal barrier technique were utilized. IMPRESSION: 1. Successful ultrasound guided FNA thyroid biopsy.
== END 2022-01-19 10:33 | disposition home or self-care (01) ==
LOC: RADPROMAIN 08:56
PROVIDERS: ATTEND Internal Medicine
DX: E04.1 Nontoxic single thyroid nodule (principal)
CPT/HCPCS: 10005; 88173; 88305

== ENCOUNTER → 2022-02-07 | Outpatient (CLI) | payer MEDICARE ==
[2022-02-07 07:05] LABS: African American GFR (CKD) >90 (>60 ml/min/1.73 sqM); Blood Urea Nitrogen 13 mg/dL (9-20); Non-African American GFR(CKD) 81 (>60 ml/min/1.73 sqM)
--- NOTE | 2022-02-07 08:21 | CT ---
EXAMINATION TYPE: CT chest w con DATE OF EXAM: 02/07/2022 COMPARISON: CT chest 07/18/2016 HISTORY: Contact/exposure to asbestos. C/o chest pain CT DLP: 310.80 mGycm, Automated exposure control for dose reduction was used. CONTRAST: Performed injected with 70 mL of Isovue 300. TECHNIQUE: Axial images were obtained at 5 mm thick sections. Reconstructed images are reviewed on [employer] computer in the coronal plane. FINDINGS: Portion of the thyroid visualized is normal. No suspicious lung nodules or focal infiltrates are present. No suspicious infiltrates or pleural dick ques are evident to suggest asbestos radiographically. No enlarged mediastinal or hilar adenopathy is evident. The ascending aorta diameter at the level o f the main pulmonary artery is 3.1 cm. The main pulmonary artery diameter at the bifurcation is 2.[address] sections are obtained through the upper abdomen. Scattered hypodensities within the liver may be related to hepatic cysts. IMPRESSIONS: 1. No acute pulmonary process.
== END | disposition home or self-care (01) ==
LOC: RADCTMAIN 06:20
PROVIDERS: ATTEND Internal Medicine
DX: Z77.090 Contact with and (suspected) exposure to asbestos (principal)
CPT/HCPCS: 82565; 84520; 71260; Q9967

== ENCOUNTER → 2024-02-06 | Outpatient (CLI) | payer MEDICARE ==
--- NOTE | 2024-02-06 15:56 | XR ---
EXAMINATION TYPE: XR KUB DATE OF EXAM: 02/06/2024 3:46 PM CLINICAL INDICATION: Male, 68 years old with history of N20.0 CALCULUS OF KIDNEY; [facility] COMPARISON: 05/16/2011 TECHNIQUE: One radiographic view of the abdomen was obtained. FINDINGS: The bowel gas pattern is nonspecific without dilated loops of small or large bowel. . Fecal material and gas are demonstrated throughout the colon and rectum. There is no evidence for organomegaly or pneumoperitoneum. The osseous structures are intact. Left renal calculi measuring up to 7 mm. Bilateral stent graft are present. Right proximal femur fixation hardware present. IMPRESSION: 1. Left renal calculi measuring up to 7 mm. 2. Nonspecific bowel gas pattern without radiographic evidence for acute process. [facility], , 02/06/2024 3:54 PM
== END | disposition home or self-care (01) ==
LOC: RADXRMAIN 15:21
PROVIDERS: ATTEND Urology
DX: N20.0 Calculus of kidney (principal)
CPT/HCPCS: 74018

== ENCOUNTER → 2024-02-11 | Outpatient (CLI) | payer MEDICARE ==
[2024-02-11 19:40] LABS: Basophils # (A) 0.04 X 10*3/uL (0.00-0.10); Basophils % (A) 0.5 %; Eosinophils # (A) 0.12 X 10*3/uL (0.04-0.35); Eosinophils % (A) 1.5 %; HCT 47.8 % (39.6-50.0); HGB 15.2 g/dL (13.0-17.0); Lymphocytes # (A) 1.78 X 10*3/uL (0.90-5.00); Lymphocytes % (A) 21.6 %; MCHC 31.8 g/dL (32.0-37.0); MCV 97.6 FL (80.0-97.0); Monocytes # (A) 0.64 X 10*3/uL (0.20-1.00); Monocytes % (A) 7.8 %; NRBC Per 100 WBC 0 X 10*3/uL (0.00-0.01); Neutrophils # (A) 5.62 X 10*3/uL (1.80-7.70); Neutrophils % (A) 68.2 %; Platelet Count 265 X 10*3/uL (140-440); RDW 12.7 % (11.5-14.5); WBC 8.23 X 10*3/uL (4.50-10.00)
[2024-02-11 20:09] LABS: BUN/Creat Ratio 11.82 Ratio (12.00-20.00); Calcium 9.1 mg/dL (8.7-10.3); Carbon Dioxide 22.7 mmol/L (21.6-31.8); Chloride 109 mmol/L (96-109); Glucose 100 mg/dL (70-110); Sodium 143 mmol/L (135-145)
== END | disposition home or self-care (01) ==
LOC: LABWHC1 12:42
PROVIDERS: ATTEND Urology
DX: N20.0 Calculus of kidney (principal)
CPT/HCPCS: 36415; 80048; 85025

== ENCOUNTER 2024-02-14 10:46 | Day surgery (SDC) | payer MEDICARE ==
--- NOTE | 2024-02-11 14:30 | P.HPIHPCON ---
History of Present Illness H&P Date: 02/11/24 Chief Complaint: Left renal stone This is a 68-year-old male with history of solitary kidney on the left, secondary to right radical nephrectomy for renal cell carcinoma. Patient has two 8 mm left-sided lower pole stone, underwent attempted ESWL x 2 at [place] stones did not fragment, he continues to have left flank pain. Discussed with him the option of left-sided ureteroscopy with holmium laser, aware of the risk which includes but not limited to bleeding, infection, injury to the ureter. Discussed given the location of the lower pole or potentially may not be able to remove the stone and at that point he will require a PCNL at a later date. He understood all the risk and agreed to proceed. Discussed also potential that he may continues to have flank pain even with stone removals Consent for Procedure: I have explained the operation/procedure to the patient, including the risks, benefits, side effects, alternative therapies (including not receiving the proposed treatment or service), the likelihood of the patient achieving his/her goals, and potential recuperation problems for the procedure/sedation/analgesia, as well as any blood products, if indicated. I also explained to the patient the risks, benefits and side effects of the alternatives, as well as the risks related to not receiving the proposed procedure, care, treatment, or services. Past Medical History Past Medical History: Myocardial Infarction (OK), Pneumonia, Rheumatoid Arthritis (RA) Additional Past Medical History / Comment(s): freq diarrhea and SOB,hx 15-FX RT HIP d/t fall, HX RT KIDNEY CA- no chemo, no radiation. hx of shingles Last Myocardial Infarction Date:: 05-25-2020 History of Any Multi-Drug Resistant Organisms: None Reported Past Surgical History: Heart Catheterization With Stent, Joint Replacement, Orthopedic Surgery Additional Past Surgical History / Comment(s): RT NEPHRECTOMY,RT KNEE REPLACE, ROT CUFF REPAIR LT,LT HAND REMOVAL OF A NAIL,MULT ORTHOSCOPIC SURG MEGAN KNEES, 01-17-15 CLOSED REDUCTION/PINNING OF RT HIP Past Anesthesia/Blood Transfusion Reactions: Motion Sickness, Postoperative Nausea & Vomiting (PONV) Additional Past Anesthesia/Blood Transfusion Reaction / Comment(s): never recieved blood. Date of Last Stent Placement:: 05-25-2020 Past Psychological History: No Psychological Hx Reported Additional Psychological History / Comment(s): pt lives with in a single level home that has 3 porch steps. pt drives. no past service. 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 no home care services, no medical equipment. Smoking Status: Former smoker Past Alcohol Use History: Occasional Additional Past Alcohol Use History / Comment(s): STARTED SMOKING AT AGE 14(1970) and quit at age 61(2017) and restarted in last year Past Drug Use History: None Reported Additional Drug Use History / Comment(s): . - Past Family History Mother Family Medical History: Cancer Father Family Medical History: Cancer, Deep Vein Thrombosis (DVT) Medications and Allergies Home Medications Medication Instructions Recorded Confirmed Type Multivitamin/Iron/Folic Acid 1 tab PO DAILY 10/24/17 01/02/22 History [Centrum Complete Multivit Tab] traMADol HCL [Ultram] 50 mg PO Q8H PRN 10/24/17 01/02/22 History Ibuprofen 600 mg PO TID PRN 01/25/21 01/02/22 History Albuterol Inhaler [Ventolin Hfa 2 puff INHALATION RT-Q6H PRN 12/13/21 01/02/22 History Inhaler] Albuterol Nebulized [Ventolin 2.5 mg INHALATION RT-TID PRN 12/13/21 01/02/22 History Nebulized] Cyanocobalamin (Vitamin B-12) 1,000 mcg PO DAILY 12/13/21 01/02/22 History [Vitamin B-12] Aspirin 325 mg PO DAILY #30 tab 12/14/21 01/02/22 Rx Atorvastatin [Lipitor] 80 mg PO HS 30 Days #30 tab 12/14/21 01/02/22 Rx Allergies Allergy/AdvReac Type Severity Reaction Status Date / Time No Known Allergies Allergy Verified 01/19/22 09:58 Surgical - Exam - General no distress, moderate pain - Eyes normal ocular movement, no pale - ENT normal nares, normal mucosa - Respiratory normal expansion, normal respiratory effort - Abdomen Abdomen: soft, non tender, no distended - Psychiatric oriented to time, oriented to person, oriented to place Assessment and Plan Assessment: OR for left-sided ureteroscopy, laser lithotripsy, stone basketing and stent insertion
[~2024-02-14 10:46] MED LIST changes: -ALPRAZolam 0.25 MG TAB PO PRN; -ALPRAZolam 0.5 MG TAB PO PRN; -ASPIRIN 325 MG TAB PO STA; -ATORVASTATIN 80 MG TAB PO STA; +MIDAZOLAM 2 MG/2 ML VIAL IV PRN; -NITROGLYCERIN SL TABS 0.4 MG TAB SUBLINGUAL PRN; -SODIUM CHLORIDE 0.9% 1,000 ML in EMPTY BAG 1 BAG IV ONE
[2024-02-14] MEDS: IV FLUID CONTINUATION 1,000 ML IV ONE ×2 (11:17→13:56)
[2024-02-14] MEDS: LACTATED RINGERS 1,000 ML IV SCH (11:27)
[2024-02-14] MEDS: DEXAMETHASONE SOD PHOSPHATE 4 MG/ML 1 ML VIAL IV ONE (11:28)
[2024-02-14] MEDS: ONDANSETRON 4 MG/2 ML VIAL IVP ONE (11:28)
--- NOTE | 2024-02-14 11:44 | XR ---
EXAMINATION TYPE: XR KUB DATE OF EXAM: 02/14/2024 Comparison: 02/06/2024 Clinical History: 68-year-old male Left Renal Stone N20.0 Findings: Nonobstructive bowel gas pattern. Mild scattered stool. Air extends distally to the rectum. Percutane ous pinning noted right femoral neck. Iliac vessels is noted. 2.6 cm eggshell calcification right upp er quadrant. A couple calcifications left mid abdomen redemonstrated measuring 8 mm and 7 mm. Additio nal 6 mm calcification left side of the pelvis remains unchanged. Impression: 1. Nonobstructive left renal calculi measuring 8 mm and 7 mm. 2. An additional 6 mm calcification left side of the pelvis favored to represent a phlebolith rather than a distal ureteral stone. 3. A 2.6 cm eggshell calcification right upper quadrant, etiology unclear. Possible adrenal gland les ion, gallstone, or vascular etiology. CT may be helpful in further evaluating. [facility], , 02/14/2024 11:42 AM
[2024-02-14] MEDS ORDERED: MIDAZOLAM 2 MG/2 ML VIAL ONE (12:38)
[2024-02-14] MEDS ORDERED: LIDOCAINE 1% INJ 10MG/ML (20 ML MDV) ONE (12:38)
[2024-02-14] MEDS ORDERED: fentaNYL (PF) 50 MCG/ML 2 ML AMP ONE (12:38)
[2024-02-14] MEDS ORDERED: PROPOFOL 10 MG/ML 20 ML VIAL IV ONE (12:38)
--- NOTE | 2024-02-14 13:51 | P.OP ---
Date of Procedure: 02/14/24 Preoperative Diagnosis: Left renal stones Postoperative Diagnosis: Same Procedure(s) Performed: Cystoscopy, left ureteroscopy, holmium laser lithotripsy, stone basketing and stent insertion Implants: 6 English by 26 cm stent in the left ureter left on a string Anesthesia: VIOLET Surgeon: Camron Lovelace Estimated Blood Loss (ml): 5 Pathology: other (left renal stone) Condition: stable Indications for Procedure: This is a 68-year-old male with history of solitary kidney on the left, secondary to right radical nephrectomy for renal cell carcinoma. Patient has two 8 mm left-sided lower pole stone, underwent attempted ESWL x 2 at [place] stones did not fragment, he continues to have left flank pain. Discussed with him the option of left-sided ureteroscopy with holmium laser, aware of the risk which includes but not limited to bleeding, infection, injury to the ureter. Discussed given the location of the lower pole or potentially may not be able to remove the stone and at that point he will require a PCNL at a later date. He understood all the risk and agreed to proceed. Discussed also potential that he may continues to have flank pain even with stone removals Operative Findings: 3 large left lower pole stone Description of Procedure: Patient brought the operating room, general anesthesia was induced. He was prepped and draped in sterile fashion placed in dorsolithotomy position. Cystoscopy with a 21 English sheath was inserted per urethra, cystoscopy was performed showed no abnormality within the bladder, patient had a slightly enlarged prostate with a small median lobe. Attention was then carried to the left ureteral orifice which was intubated with a sensor wire, the wire was then advanced under fluoroscopy into the left kidney. Next an 1113 English access sheath was passed over the wire and into the proximal ureter. The flexible ureteroscope was inserted through the access sheath, renoscopy was performed showed with 3 large stones in the lower pole, the stones were repositioned using a stone basket to the upper pole. Using the holmium laser the stones were dusted, any sizable stone fragments were removed using the stone basket. Repeat renoscopy showed no sizable fragments or injury to the kidney, on fluoroscopy there is no radiopaque density seen. At this time pullback ureteroscopy was performed and showed no injury to the ureter or any ureteral stones, as ureteroscope was withdrawn a sensor wire was advanced through. Next a ureteral stent was passed over the wire, the proximal curl was realized on fluoroscopy and the distal curl was visualized using the cystoscope. The bladder was emptied at the end the case. Patient tolerated procedure well was taken to recovery in stable condition
[2024-02-14] MEDS: HYDROmorphone 0.5 MG/0.5 ML SYRINGE IVP PRN (14:00)
[2024-02-14 14:13] VITALS: TEMP 97.4
[2024-02-14] MEDS: KETOROLAC 15 MG/ML 1 ML VIAL IVP STA (14:39)
[2024-02-14 15:37] VITALS: BP 163/74; PULSE 58; RESP 20
--- NOTE | 2024-02-14 18:23 | FL ---
EXAMINATION TYPE: FL guidance operating room DATE OF EXAM: 02/14/2024 Comparison: None Clinical History: 68-year-old male CYSTO IN OR FOR LEFT RENAL STONE FLUOROSCOPY: 34 sec FL 4.8386 Gycm2 DAP dose 2 images submitted. [facility], , 02/14/2024 6:21 PM
== END 2024-02-14 16:30 | disposition home or self-care (01) ==
LOC: OR 10:46
PROVIDERS: ATTEND Urology
CPT/HCPCS: 74018; 82365

== ENCOUNTER 2024-05-01 09:56 | Day surgery (SDC) | payer MEDICARE ==
[2024-04-27 11:13] VITALS: BMI 24.1
[~2024-05-01 09:56] MED LIST changes: +ALPRAZolam 0.25 MG TAB PO PRN; +ALPRAZolam 0.5 MG TAB PO PRN; +ASPIRIN 325 MG TAB PO STA; -MIDAZOLAM 2 MG/2 ML VIAL IV PRN; +NITROGLYCERIN SL TABS 0.4 MG TAB SUBLINGUAL PRN
[2024-05-01 10:16] VITALS: RESP 18; TEMP 98
[2024-05-01] MEDS: SODIUM CHLORIDE 0.9% 1,000 ML in EMPTY BAG 1 BAG IV SCH (10:16)
[2024-05-01] MEDS: IV FLUID CONTINUATION 1,000 ML IV ONE (10:17)
[2024-05-01 10:22] LABS: Glucose,Whole Blood 99 mg/dL (70-110)
[2024-05-01 10:37] LABS: Basophils % (A) 1 %; Eosinophils # (A) 0.2 k/uL (0-0.7); Eosinophils % (A) 2 %; HCT 47.2 % (39.0-53.0); HGB 15.9 gm/dL (13.0-17.5); Lymphocytes # (A) 1.4 k/uL (1.0-4.8); Lymphocytes % (A) 19 %; MCH 31.9 pg (25.0-35.0); MCHC 33.6 g/dL (31.0-37.0); MCV 95.1 fL (80.0-100.0); Mean Platelet Volume 7.9; Monocytes # (A) 0.4 k/uL (0-1.0); Monocytes % (A) 6 %; Neutrophils # (A) 5.1 k/uL (1.3-7.7); Neutrophils % (A) 71 %; Platelet Count 175 k/uL (150-450); RBC 4.97 m/uL (4.30-5.90); RDW 12.7 % (11.5-15.5); WBC 7.2 k/uL (3.8-10.6)
[2024-05-01 10:55] LABS: African American GFR (CKD) >90 (>60 ml/min/1.73 sqM); Anion Gap 7 mmol/L; Blood Urea Nitrogen 12 mg/dL (9-20); Carbon Dioxide 22 mmol/L (22-30); Chloride 111 mmol/L (98-107); Glucose 97 mg/dL (74-99); Non-African American GFR(CKD) 87 (>60 ml/min/1.73 sqM); Sodium 140 mmol/L (137-145)
[2024-05-01 11:31] LABS: Potassium 4.3 mmol/L (3.5-5.1)
[2024-05-01] MEDS: MIDAZOLAM 2 MG/2 ML VIAL IVP ONE (12:00)
[2024-05-01] MEDS: fentaNYL (PF) 50 MCG/1 ML VIAL IVP ONE (12:00)
[2024-05-01] MEDS: HEPARIN SODIUM,PORCINE 10,000 UNIT in SODIUM CHLORIDE 0.9% 1,000 ML IRRIGATION PRN (12:01)
[2024-05-01] MEDS: HEPARIN SODIUM,PORCINE (1 ML) 2,500 UNIT in SODIUM CHLORIDE 0.9% 250 ML IRRIGATION PRN (12:02)
[2024-05-01] MEDS: LIDOCAINE 1% INJ 10MG/ML (20 ML MDV) SQ ONE (12:02)
[2024-05-01] MEDS: VERAPAMIL SYRINGE (5 MG/10 ML) INTRAARTER ONE (12:06)
[2024-05-01] MEDS: HEPARIN SODIUM 1,000 UN/ML (10ML VL) IV ONE (12:08)
[2024-05-01] MEDS: IOPAMIDOL-370 100ML BTL INJ ONE (12:13)
--- NOTE | 2024-05-01 14:12 | P.CARDCATH ---
Description of Procedure: PROCEDURES PERFORMED: Left heart catheterization, bilateral coronary angiography, ultrasound guided arterial access INDICATION: abnormal stress test CONSENT:I have discussed the risks, benefits and alternative therapies for the above-mentioned procedure and for both sedation/analgesia as well as necessary blood product administration, if indicated, as they pertain to this patient. The patient has indicated understanding and acceptance of the risks and procedures discussed. PROCEDURE: After the risks, benefits and alternatives of the above mentioned procedure explained in detail with the patient, informed consent was obtained. Patient was taken to the catheterization lab and prepped and draped in usual fashion. Ultrasound guidance was used to assess for arterial access. 1% lidocaine was used to anesthetize the right radial artery. A 6-Lebanese sheath was placed in the right radial artery using modified Seldinger technique and ultrasound guidance. Left coronary angiography was performed with a 5-Lebanese JL 3.5 catheter and right coronary angiography was performed with a 5-Lebanese FR5 catheter in various views. A 5-Lebanese FR5 catheter was inserted into the left ventricle and pressure measurements were obtained. The right radial sheath was removed and a TR band was placed with hemostasis achieved. The patient to lerated the procedure well. Patient was transported back to the post catheterization holding area in stable condition. Conscious Sedation: Patient was monitored under the direct supervision of myself for conscious sedation using Versed and fentanyl for a total duration of 11 minutes HEMODYNAMICS: Aorta: 118/76 LV: 115/8, LVEDP 16 SELECTIVE CORONARY ARTERIOGRAPHY: LEFT MAIN: The left main is a large caliber vessel which bifurcates into the LAD and circumflex. There is no significant stenosis. LEFT ANTERIOR DESCENDING CORONARY ARTERY: LAD is a large caliber vessel which wraps around to the apex. There are mild luminal irregularities of the LAD. There is some mid LAD bridging. LEFT CIRCUMFLEX CORONARY ARTERY: Left circumflex is a moderate caliber vessel with mild mid circumflex 20-30% stenosis. RIGHT CORONARY ARTERY: The right coronary artery is a moderate to large caliber vessel which gives off a PDA and PLV branch and is the dominant vessel. There is a patent RCA stent and otherwise mild luminal irregularities. FINAL IMPRESSION: 1. Mild CAD as described above including mid circumflex 20-30% stenosis and otherwise mild luminal irregularities and patent RCA stent. 2. Mildly elevated left sided filling pressures PLAN: 1. Aggressive risk factor modification per most recent ACC/AHA guidelines. 2. Follow-up in the office in 1-2 weeks.
[2024-05-01 14:29] VITALS: BP 128/61; PULSE 47
== END 2024-05-01 15:20 | disposition home or self-care (01) ==
LOC: CATHCVL 09:56
PROVIDERS: ATTEND Internal Medicine
DX: I25.10 Atherosclerotic heart disease of native coronary artery without angina pectoris (principal); E78.5 Hyperlipidemia, unspecified; F17.210 Nicotine dependence, cigarettes, uncomplicated; Z95.5 Presence of coronary angioplasty implant and graft; Z86.73 Personal history of transient ischemic attack (TIA), and cerebral infarction without residual deficits; Z79.02 Long term (current) use of antithrombotics/antiplatelets; Z79.899 Other long term (current) drug therapy
CPT/HCPCS: 93458; 80048; 85025; 99152; C1769; C1894; J2250; J1644 ×3; J2003; Q9967; J3010

== ENCOUNTER 2024-06-20 13:11 | Inpatient (IN) | payer MEDICARE ==
[2024-06-20] MEDS: IPRATROPIUM-ALBUTEROL 3 ML NEB INHALATION STA (13:30)
--- NOTE | 2024-06-20 13:48 | ED ---
General Adult HPI - General Chief complaint: Upper Respiratory Infection Stated complaint: SOB Time Seen by Provider: 06/20/24 13:14 Source: patient, EMS, RN notes reviewed, old records reviewed Mode of arrival: EMS - History of Present Illness Initial comments: Patient is a 68-year-old male who presents emergency department complaining of cough, congestion. Patient has a history of COPD, CAD, TIA, hypertension, ND, hyperlipidemia. States that he feels like he has pneumonia or some other upper respiratory infection. States this is how it typically starts as he has had worsening shortness of breath with cough and congestion for a few days. Worse today. Is not on blood thinners. Endorses some general chest tightness with cough as well as post tussive emesis. Denies fever. Was given oral prednisone, breathing treatments on the way here. Typically does not require oxygen and needed 6 L in the ER. Currently only requiring 2 L. States he does feel imp roved. Endorses a cough but there is no production with the cough. Presents for further evaluation at this time. - Related Data Home Medications Medication Instructions Recorded Confirmed Acetaminophen Tab [Tylenol Tab] 1,000 mg PO BID 06/20/24 06/20/24 Diclofenac Sodium [Voltaren] 75 mg PO BID 06/20/24 06/20/24 Ketorolac 0.5% Ophth Soln [Acular 1 drop BOTH EYES BID 06/20/24 06/20/24 0.5%] Nitroglycerin Sl Tabs [Nitrostat] 0.4 mg SL Q5M PRN 06/20/24 06/20/24 amLODIPine [Norvasc] 5 mg PO DAILY 06/20/24 06/20/24 prednisoLONE ACETATE 1% OPHTH 1 drop BOTH EYES BID 06/20/24 06/20/24 [Pred Forte 1%] Allergies Allergy/AdvReac Type Severity Reaction Status Date / Time No Known Allergies Allergy Verified 06/20/24 18:11 Review of Systems ROS Statement: Those systems with pertinent positive or pertinent negative responses have been documented in the HPI. Review of Systems: CONST: Denies fever EYES: Denies blurry vision ENT: Endorses nasal congestion C/V: Denies Chest pain RESP: Endorses shortness of breath GI: Denies abdominal pain : Denies dysuria SKIN: Denies rash. MSK: Denies joint pain. NEURO: Denies headache ROS Other: All systems not noted in ROS Statement are negative. Past Medical History Past Medical History: Coronary Artery Disease (CAD), Cancer, Chest Pain / Angina, COPD, CVA/TIA, Hearing Disorder / Deafness, Hyperlipidemia, Hypertension, Myocardial Infarction (ND), Pneumonia, Rheumatoid Arthritis (RA) Additional Past Medical History / Comment(s): See Cardiology H&P. HX RIGHT KIDNEY CANCER WITH NEPHRECTOMY - no chemo, no radiation. Hx of shingles. Hx TIA 2021 with no residual effects. SOB with activity. Hx kidney stones Feb 2024. Bilateral hearing aids. Last Myocardial Infarction Date:: 05-25-2020 History of Any Multi-Drug Resistant Organisms: None Reported Past Surgical History: Heart Catheterization With Stent, Joint Replacement, Orthopedic Surgery Additional Past Surgical History / Comment(s): RIGHT NEPHRECTOMY, RIGHT KNEE REPLACEMENT, LEFT ROTATOR CUFF REPAIR, LEFT HAND REMOVAL OF A NAIL, MULTIPLE B ILATERAL KNEE ARTHROSCOPIES, CLOSED REDUCTION/PINNING OF RIGHT HIP, multiple vascular angioplasties/STENTS. Past Anesthesia/Blood Transfusion Reactions: Motion Sickness, Postoperative Nausea & Vomiting (PONV) Additional Past Anesthesia/Blood Transfusion Reaction / Comment(s): No hx blood transfusion. Date of Last Stent Placement:: 08/2023 Smoking Status: Current every day smoker - Past Family History Mother Family Medical History: Cancer Father Family Medical History: Cancer, Deep Vein Thrombosis (DVT) General Exam - General Exam Comments Initial Comments: General: Appears in mild respiratory distress with minimal increased work of breathing. No significant hypoxia on 2 L nasal cannula. Intermittently will dip down to 90 to 91% on room air. We will keep on 2 L for now with additional breathing treatments. Febrile HEAD: Normal with no signs of head trauma. EYES: EOMI ENT: Hearing grossly intact, normal oropharynx. RESPIRATORY: Bilateral coarse breath sounds with end expiratory wheezing. No significant increased work of breathing. Mild hypoxia on room air. C/V: Regular rate and rhythm. S1 and S2 auscultated, no edema, peripheral pulses 2+ and intact throughout ABD: Abd is soft, nontender, nondistended EXT: Normal range of motion, no obvious deformity SKIN: No rashes or lesions observed on exposed skin. NEURO: Alert and oriented x 4. Cranial nerves II-XII intact. No focal sensory or strength deficits. Course Vital Signs 06/20/24 06/20/24 06/20/24 13:14 13:32 13:44 Temperature 100.2 F H Pulse Rate 83 82 85 Respiratory 22 Rate Blood Pressure 180/73 O2 Sat by Pulse 98 Oximetry 06/20/24 06/20/24 06/20/24 18:21 20:19 20:20 Temperature Pulse Rate 72 64 Respiratory 18 Rate Blood Pressure 121/61 O2 Sat by Pulse 97 94 L Oximetry 06/20/24 20:27 Temperature Pulse Rate 61 Respiratory Rate Blood Pressure O2 Sat by Pulse Oximetry Medical Decision Making - Medical Decision Making Was pt. sent in by a medical professional or institution (, PA, NETWORK CONSULTANT, urgent care, hospital, or penitentiary...) When possible be specific @ -No Did you speak to anyone other than the patient for history (EMS, parent, family, police, friend...)? What history was obtained from this source @ -No Did you review nursing and triage notes (agree or disagree)? Why? @ -I reviewed and agree with nursing and triage notes Were old charts reviewed (outside hosp., previous admission, EMS record, old EKG, old radiological studies, urgent care reports/EKG's, penitentiary records)? Report findings @ -Charts reviewed, confirming patient's past medical history of cardiac disease. Differential Diagnosis (chest pain, altered mental status, abdominal pain women, abdominal pain men, vaginal bleeding, weakness, fever, dyspnea, syncope, headache, dizziness, GI bleed, back pain, seizure, CVA, palpatations, mental health, musculoskeletal)? @ -Differential Dyspnea: Coronary syndrome, arrhythmia, tamponade, asthma, COPD, pulmonary embolism, pneumonia, pneumothorax, pulmonary effusion, anaphylaxis, diabetic ketoacidosis, flailed chest, pulmonary contusion, diaphragmatic rupture, anemia, neuromuscular, this is not meant to be an all-inclusive list. EKG interpreted by me (3pts min.). @ -As above X-rays interpreted by me (1pt min.). @ -Chest x-ray reveals no obvious acute cardiopulmonary process. CT interpreted by me (1pt min.). @ -None done U/S interpreted by me (1pt. min.). @ -None done What testing was considered but not performed or refused? (CT, X-rays, U/S, labs)? Why? @ -None What meds were considered but not given or refused? Why? @ -None Did you discuss the management of the patient with other professionals (professionals i.e. , PA, NETWORK CONSULTANT, lab, RT, psych nurse, child welfare social worker, school cafeteria cook, teacher, campus security officer, manager rn case)? Give summary @ -With the admitting provider, Dr. Marroquin who accepted the admission. Was smoking cessation discussed for >3mins.? @ -No Was critical care preformed (if so, how long)? @ -24 minutes Were there social determinants of health that impacted care today? How? (Homelessness, low income, unemployed, alcoholism, drug addiction, transportation, low edu. Level, literacy, decrease access to med. care, fpc, rehab)? @ -No Was there de-escalation of care discussed even if they declined (Discuss DNR or withdrawal of care, Hospice)? DNR status @ -No What co-morbidities impacted this encounter? (DM, HTN, Smoking, COPD, CAD, Cancer, CVA, ARF, Chemo, Hep., AIDS, mental health diagnosis, sleep apnea, morbid obesity)? @ -Chronic tobacco smoker. Was patient admitted / discharged? Hospital course, mention meds given and route, prescriptions, significant lab abnormalities, going to OR and other pertinent info. @ -Based on the patient's presentation and physical exam, presents with what appears to be upper respiratory infection. Has been having a productive cough for a few days. Has a history of COPD. EMS arrived and he was requiring oxygen. Received breathing treatments on the way here. Is feeling improved. Exam remarkable for coarse breath sounds with wheezing. Patient is febrile. Very mild hypoxia on room air. Patient will be symptomatically treated with IV Toradol, Tylenol, IV steroids, breathing treatment. Will be given a liter fluid bolus. We will obtain infectious workup, as well as screening EKG. Patient was in agreement this plan. EKG shows nonspecific ST segment and T wave abnormalities but no obvious acute ischemic changes.X-ray reveals no obvious acute cardiopulmonary process. Laboratory studies returned remarkable for lactic acidosis of 3.0, likely secondary to dehydration and underlying hypoxia and infection from COPD and infection. Patient is influenza A positive. Urine studies negative. I discussed results with patient. He is still requiring oxygenation for comfort. He is still sounding congested and coarse breath sounds. He will be started on azithromycin for tracheobronchitis. He will be started on Tamiflu for influenza. Patient was in agreement this plan. He will be admitted to the hospital with IV fluids as well. With the admitting provider, Dr. Marroquin who accepted the admission. Continue with IV steroids, as well as breathing treatments Undiagnosed new problem with uncertain prognosis? @ -No Drug Therapy requiring intensive monitoring for toxicity (Heparin, Nitro, Insulin, Cardizem)? @ -No Were any procedures done? @ -No Diagnosis/symptom? @ -Hypoxic respiratory failure secondary to COPD and influenza infection with tracheobronchitis. Acute, or Chronic, or Acute on Chronic? @ -Acute Uncomplicated (without systemic symptoms) or Complicated (systemic symptoms)? @ -Complicated Side effects of treatment? @ -None Exacerbation, Progression, or Severe Exacerbation] @ -No Poses a threat to life or bodily function? @ -Yes - Lab Data Result diagrams: 06/20/24 13:43 06/20/24 13:43 Lab Results 06/20/24 06/20/24 06/20/24 Range/Units 13:43 13:43 13:43 WBC 5.8 (3.8-10.6) k/uL RBC 4.79 (4.30-5.90) m/uL Hgb 14.8 (13.0-17.5) gm/dL Hct 46.1 (39.0-53.0) % MCV 96.1 (80.0-100.0) fL MCH 30.9 (25.0-35.0) pg MCHC 32.1 (31.0-37.0) g/dL RDW 13.0 (11.5-15.5) % Plt Count 133 L (150-450) k/uL MPV 7.9 Neutrophils % 85 % Lymphocytes % 7 % Monocytes % 5 % Eosinophils % 0 % Basophils % 0 % Neutrophils # 4.9 (1.3-7.7) k/uL Lymphocytes # 0.4 L (1.0-4.8) k/uL Monocytes # 0.3 (0-1.0) k/uL Eosinophils # 0.0 (0-0.7) k/uL Basophils # 0.0 (0-0.2) k/uL PT 10.5 (10.0-12.5) sec INR 0.9 (<1.2) APTT 24.0 (22.0-30.0) sec Sodium 140 (137-145) mmol/L Potassium 3.6 (3.5-5.1) mmol/L Chloride 103 (98-107) mmol/L Carbon Dioxide 20 L (22-30) mmol/L Anion Gap 17 mmol/L BUN 22 H (9-20) mg/dL Creatinine 0.99 (0.66-1.25) mg/dL Est GFR (CKD-EPI)AfAm 89 (>60 ml/min/1.73 sqM) Est GFR (CKD-EPI)NonAf 77 (>60 ml/min/1.73 sqM) Glucose 117 H (74-99) mg/dL Lactic Ac Sepsis Rflx Plasma Lactic Acid Francisco (0.7-2.0) mmol/L Calcium 8.9 (8.4-10.2) mg/dL Magnesium 1.9 (1.6-2.3) mg/dL Total Bilirubin 0.6 (0.2-1.3) mg/dL AST 36 (17-59) U/L ALT 30 (4-49) U/L Alkaline Phosphatase 95 (38-126) U/L Total Protein 7.4 (6.3-8.2) g/dL Albumin 4.8 (3.5-5.0) g/dL Urine Color Urine Appearance (Clear) Urine pH (5.0-8.0) Ur Specific [place] (1.001-1.035) Urine Protein (Negative) Urine Glucose (UA) (Negative) Urine Ketones (Negative) Urine Blood (Negative) Urine Nitrite (Negative) Urine Bilirubin (Negative) Urine Urobilinogen (<2.0) mg/dL Ur Leukocyte Esterase (Negative) Urine RBC (0-5) /hpf Urine WBC (0-5) /hpf Ur Squamous Epith Cells (0-4) /hpf Urine Mucus (None) /hpf Influenza Type A (PCR) (Not Detectd) Influenza Type B (PCR) (Not Detectd) RSV (PCR) (Not Detectd) SARS-CoV-2 (PCR) (Not Detectd) 06/20/24 06/20/24 06/20/24 Range/Units 13:43 13:43 14:37 WBC (3.8-10.6) k/uL RBC (4.30-5.90) m/uL Hgb (13.0-17.5) gm/dL Hct (39.0-53.0) % MCV (80.0-100.0) fL MCH (25.0-35.0) pg MCHC (31.0-37.0) g/dL RDW (11.5-15.5) % Plt Count (150-450) k/uL MPV Neutrophils % % Lymphocytes % % Monocytes % % Eosinophils % % Basophils % % Neutrophils # (1.3-7.7) k/uL Lymphocytes # (1.0-4.8) k/uL Monocytes # (0-1.0) k/uL Eosinophils # (0-0.7) k/uL Basophils # (0-0.2) k/uL PT (10.0-12.5) sec INR (<1.2) APTT (22.0-30.0) sec Sodium (137-145) mmol/L Potassium (3.5-5.1) mmol/L Chloride (98-107) mmol/L Carbon Dioxide (22-30) mmol/L Anion Gap mmol/L BUN (9-20) mg/dL Creatinine (0.66-1.25) mg/dL Est GFR (CKD-EPI)AfAm (>60 ml/min/1.73 sqM) Est GFR (CKD-EPI)NonAf (>60 ml/min/1.73 sqM) Glucose (74-99) mg/dL Lactic Ac Sepsis Rflx Y Plasma Lactic Acid Francisco 3.0 H* (0.7-2.0) mmol/L Calcium (8.4-10.2) mg/dL Magnesium (1.6-2.3) mg/dL Total Bilirubin (0.2-1.3) mg/dL AST (17-59) U/L ALT (4-49) U/L Alkaline Phosphatase (38-126) U/L Total Protein (6.3-8.2) g/dL Albumin (3.5-5.0) g/dL Urine Color Urine Appearance (Clear) Urine pH (5.0-8.0) Ur Specific [place] (1.001-1.035) Urine Protein (Negative) Urine Glucose (UA) (Negative) Urine Ketones (Negative) Urine Blood (Negative) Urine Nitrite (Negative) Urine Bilirubin (Negative) Urine Urobilinogen (<2.0) mg/dL Ur Leukocyte Esterase (Negative) Urine RBC (0-5) /hpf Urine WBC (0-5) /hpf Ur Squamous Epith Cells (0-4) /hpf Urine Mucus (None) /hpf Influenza Type A (PCR) Detected A (Not Detectd) Influenza Type B (PCR) Not Detected (Not Detectd) RSV (PCR) Not Detected (Not Detectd) SARS-CoV-2 (PCR) Not Detected (Not Detectd) 06/20/24 Range/Units 15:15 WBC (3.8-10.6) k/uL RBC (4.30-5.90) m/uL Hgb (13.0-17.5) gm/dL Hct (39.0-53.0) % MCV (80.0-100.0) fL MCH (25.0-35.0) pg MCHC (31.0-37.0) g/dL RDW (11.5-15.5) % Plt Count (150-450) k/uL MPV Neutrophils % % Lymphocytes % % Monocytes % % Eosinophils % % Basophils % % Neutrophils # (1.3-7.7) k/uL Lymphocytes # (1.0-4.8) k/uL Monocytes # (0-1.0) k/uL Eosinophils # (0-0.7) k/uL Basophils # (0-0.2) k/uL PT (10.0-12.5) sec INR (<1.2) APTT (22.0-30.0) sec Sodium (137-145) mmol/L Potassium (3.5-5.1) mmol/L Chloride (98-107) mmol/L Carbon Dioxide (22-30) mmol/L Anion Gap mmol/L BUN (9-20) mg/dL Creatinine (0.66-1.25) mg/dL Est GFR (CKD-EPI)AfAm (>60 ml/min/1.73 sqM) Est GFR (CKD-EPI)NonAf (>60 ml/min/1.73 sqM) Glucose (74-99) mg/dL Lactic Ac Sepsis Rflx Plasma Lactic Acid Francisco (0.7-2.0) mmol/L Calcium (8.4-10.2) mg/dL Magnesium (1.6-2.3) mg/dL Total Bilirubin (0.2-1.3) mg/dL AST (17-59) U/L ALT (4-49) U/L Alkaline Phosphatase (38-126) U/L Total Protein (6.3-8.2) g/dL Albumin (3.5-5.0) g/dL Urine Color Yellow Urine Appearance Clear (Clear) Urine pH 5.5 (5.0-8.0) Ur Specific [place] 1.027 (1.001-1.035) Urine Protein 2+ H (Negative) Urine Glucose (UA) Negative (Negative) Urine Ketones 1+ H (Negative) Urine Blood Negative (Negative) Urine Nitrite Negative (Negative) Urine Bilirubin Negative (Negative) Urine Urobilinogen 2.0 (<2.0) mg/dL Ur Leukocyte Esterase Negative (Negative) Urine RBC 2 (0-5) /hpf Urine WBC 2 (0-5) /hpf Ur Squamous Epith Cells <1 (0-4) /hpf Urine Mucus Rare H (None) /hpf Influenza Type A (PCR) (Not Detectd) Influenza Type B (PCR) (Not Detectd) RSV (PCR) (Not Detectd) SARS-CoV-2 (PCR) (Not Detectd) - EKG Data -: EKG Interpreted by Me EKG Comments: 12-lead Electrocardiogram Interpretation Note EKG was reviewed and interpreted by myself. 12-lead ECG performed at 1321 is interpreted by me as revealing normal sinus rhythm at a rate of 88 beats per minute. [place] is normal. [place] interval is 137 ms, QRS duration is 94 ms, QTc is [address] segment T wave normalities present... R wave progression across the precordium was satisfactory. By my interpretation this EKG is non-di agnostic for acute ischemia. Critical Care Time Critical Care Time: Yes Total Critical Care Time: 24 Disposition Clinical Impression: Hypoxic respiratory failure, COPD (chronic obstructive pulmonary disease), Tracheobronchitis, Influenza A Disposition: ADMITTED IP TO THIS HOSP Condition: Stable Time of Disposition: 15:46
--- NOTE | 2024-06-20 14:06 | XR ---
EXAMINATION TYPE: XR chest 2V DATE OF EXAM: 06/20/2024 2:00 PM COMPARISON: Chest radiographs from 06/12/2024 CLINICAL INDICATION: Male, 68 years old with history of difficulty breathing; [facility] TECHNIQUE: XR chest 2V Frontal and lateral views of the chest. FINDINGS: Lungs/Pleura: There is no evidence of pleural effusion, focal consolidation, or pneumothorax. Pulmonary vascularity: Unremarkable. Heart/mediastinum: Cardiomediastinal silhouette is unremarkable. Musculoskeletal: No acute osseous pathology. IMPRESSION: No acute cardiopulmonary disease/process. [facility], , 06/20/2024 2:03 PM
[2024-06-20 14:07] LABS: Basophils % (A) 0 %; Eosinophils % (A) 0 %; HCT 46.1 % (39.0-53.0); HGB 14.8 gm/dL (13.0-17.5); Lymphocytes # (A) 0.4 k/uL (1.0-4.8); Lymphocytes % (A) 7 %; MCH 30.9 pg (25.0-35.0); MCHC 32.1 g/dL (31.0-37.0); MCV 96.1 fL (80.0-100.0); Mean Platelet Volume 7.9; Monocytes # (A) 0.3 k/uL (0-1.0); Monocytes % (A) 5 %; Neutrophils # (A) 4.9 k/uL (1.3-7.7); Neutrophils % (A) 85 %; Platelet Count 133 k/uL (150-450); RBC 4.79 m/uL (4.30-5.90); WBC 5.8 k/uL (3.8-10.6)
[2024-06-20 14:14] LABS: INR 0.9 (<1.2); Prothrombin Time 10.5 sec (10.0-12.5)
[2024-06-20] MEDS: KETOROLAC 15 MG/ML 1 ML VIAL IVP STA (14:19)
[2024-06-20] MEDS: MAGNESIUM SULFATE-D5W PMX 1 GM in DEXTROSE/WATER 1 100ML.BAG IVPB STA (14:19)
[2024-06-20] MEDS: methylPREDNISolone SOD SUCCI 125 MG/2 ML VIAL IV STA (14:20)
[2024-06-20] MEDS: ACETAMINOPHEN TAB 500 MG TAB PO STA (14:21)
[2024-06-20 14:29] LABS: ALT 30 U/L (4-49); AST 36 U/L (17-59); African American GFR (CKD) 89 (>60 ml/min/1.73 sqM); Albumin 4.8 g/dL (3.5-5.0); Alkaline Phosphatase 95 U/L (38-126); Anion Gap 17 mmol/L; Blood Urea Nitrogen 22 mg/dL (9-20); Calcium 8.9 mg/dL (8.4-10.2); Carbon Dioxide 20 mmol/L (22-30); Chloride 103 mmol/L (98-107); Glucose 117 mg/dL (74-99); Magnesium 1.9 mg/dL (1.6-2.3); Non-African American GFR(CKD) 77 (>60 ml/min/1.73 sqM); Potassium 3.6 mmol/L (3.5-5.1); Sodium 140 mmol/L (137-145); Total Bilirubin 0.6 mg/dL (0.2-1.3); Total Protein 7.4 g/dL (6.3-8.2)
[2024-06-20] MEDS ORDERED: NALOXONE 0.4 MG/ML 1 ML VIAL IV PRN (15:43)
[2024-06-20] MEDS: SODIUM CHLORIDE 0.9% 1,000 ML IV STA (15:46)
[2024-06-20 15:56] LABS: Appearance,Urine Clear (Clear); Bilirubin,Urine Negative (Negative); Blood,Urine Negative (Negative); Color,Urine Yellow; Glucose,Urine (UA) Negative (Negative); Ketones,Urine 1+ (Negative); Leukocyte Esterase,Urine Negative (Negative); Mucus,Urine Rare /hpf; Nitrite,Urine Negative (Negative); PH, Urine 5.5 (5.0-8.0); Protein,Urine 2+ (Negative); RBC,Urine 2 /hpf (0-5); Specific Gravity,Urine 1.027 (1.001-1.035); Squamous Epithelial Cell,Urine <1 /hpf (0-4); WBC,Urine 2 /hpf (0-5)
[2024-06-20 16:11] LABS: Influenza A Detected (Not Detectd); Influenza B Not Detected (Not Detectd); RSV Not Detected (Not Detectd)
[2024-06-20] MEDS: HEPARIN SODIUM,PORCINE 5,000 UNIT/ML 1 ML VIAL SQ SCH (16:19)
[2024-06-20] MEDS: AZITHROMYCIN 500 MG TAB PO SCH (16:19)
[2024-06-20] MEDS: SODIUM CHLORIDE 0.9% 1,000 ML IV SCH (16:20)
--- NOTE | 2024-06-20 16:26 | P.HPIM ---
History of Present Illness 68-year-old patient with known history of COPD came in with complaints of cough congestion. Patient is found to have influenza chest x-ray did not show any pneumonia at this time patient has history of COPD continues to smoke, current has been trying to quit and cut down on smoking. Patient does not use any oxygen at home is requiring oxygen here is having wheezing on exam. REVIEW OF SYSTEMS: All other systems are negative except those mentioned in the HPI PHYSICAL EXAMINATION: GENERAL: The patient is alert and oriented x3, not in any acute distress. Well developed, well nourished. HEENT: Pupils are round and equally reacting to light. EOMI. No scleral icterus. No conjunctival pallor. Normocephalic, atraumatic. No pharyngeal erythema. No thyromegaly. CARDIOVASCULAR: S1 and S2 present. No murmurs, rubs, or gallops. PULMONARY: Expiratory wheezing and rhonchi on exam. ABDOMEN: Soft, nontender, nondistended, normoactive bowel sounds. No palpable organomegaly. MUSCULOSKELETAL: No joint swelling or deformity. EXTREMITIES: No cyanosis, clubbing, or pedal edema. NEUROLOGICAL: Gross neurological examination did not reveal any focal deficits. SKIN: No rashes. Assessment and plan -COPD with acute exacerbation patient will be started on systemic steroids and additional treatments -influenza A patient will be started on Tamiflu patient states symptoms started about 2 days ago -Possible secondary bacterial bronchitis for which patient is on azithromycin which will be continued-lactic acidosis secondary to intravascular volume depletion dehydration patient is on IV fluids which will be continued -Possibility of bacterial bronchitis that cannot be ruled out -Hypertension: For chronic medical problems patient will be resumed on appropriate home medications. DVT prophylaxis: Lovenox Past Medical History Past Medical History: Coronary Artery Disease (CAD), Cancer, Chest Pain / Angina, COPD, CVA/TIA, Hearing Disorder / Deafness, Hyperlipidemia, Hype rtension, Myocardial Infarction ([place]), Pneumonia, Rheumatoid Arthritis (RA) Additional Past Medical History / Comment(s): See Cardiology H&P. HX RIGHT KIDNEY CANCER WITH NEPHRECTOMY - no chemo, no radiation. Hx of shingles. Hx TIA 2021 with no residual effects. SOB with activity. Hx kidney stones Feb 2024. Bilateral hearing aids. Last Myocardial Infarction Date:: 05-25-2020 History of Any Multi-Drug Resistant Organisms: None Reported Past Surgical History: Heart Catheterization With Stent, Joint Replacement, Orthopedic Surgery Additional Past Surgical History / Comment(s): RIGHT NEPHRECTOMY, RIGHT KNEE REPLACEMENT, LEFT ROTATOR CUFF REPAIR, LEFT HAND REMOVAL OF A NAIL, MULTIPLE BILATERAL KNEE ARTHROSCOPIES, CLOSED REDUCTION/PINNING OF RIGHT HIP, multiple vascular angioplasties/STENTS. Past Anesthesia/Blood Transfusion Reactions: Motion Sickness, Postoperative Nausea & Vomiting (PONV) Additional Past Anesthesia/Blood Transfusion Reaction / Comment(s): No hx blood transfusion. Date of Last Stent Placement:: 08/2023 Smoking Status: Current every day smoker - Past Family History Mother Family Medical History: Cancer Father Family Medical History: Cancer, Deep Vein Thrombosis (DVT) Medications and Allergies Home Medications Medication Instructions Recorded Confirmed Type Albuterol Inhaler [Ventolin Hfa 2 puff INHALATION RT-Q6H PRN 12/13/21 05/01/24 History Inhaler] Albuterol Nebulized [Ventolin 2.5 mg INHALATION RT-TID PRN 12/13/21 05/01/24 History Nebulized] Aspirin [Adult Low Dose Aspirin EC] 81 mg PO DAILY 04/17/24 05/01/24 History Losartan [Cozaar] 25 mg PO DAILY 04/17/24 05/01/24 History Acetaminophen [Tylenol] 650 mg PO QAM 04/27/24 05/01/24 History Multivitamins, Thera [Multivitamin 1 tab PO DAILY 04/27/24 05/01/24 History (formulary)] Allergies Allergy/AdvReac Type Severity Reaction Status Date / Time No Known Allergies Allergy Verified 05/01/24 10:08 Physical Exam Vitals: Vital Signs Temp Pulse Resp BP Pulse Ox 06/20/24 13:44 85 06/20/24 13:32 82 06/20/24 13:14 100.2 F H 83 22 180/73 98 Intake and Output 06/20/24 06/20/24 06/20/24 06:59 14:59 22:59 Other: Weight 81.647 kg Results CBC & Chem 7: 06/20/24 13:43 06/20/24 13:43 Labs: Abnormal Lab Results - Last 24 Hours (Table) 06/20/24 06/20/24 06/20/24 Range/Units 13:43 13:43 13:43 Plt Count 133 L (150-450) k/uL Lymphocytes # 0.4 L (1.0-4.8) k/uL Carbon Dioxide 20 L (22-30) mmol/L BUN 22 H (9-20) mg/dL Glucose 117 H (74-99) mg/dL Plasma Lactic Acid Francisco 3.0 H* (0.7-2.0) mmol/L Urine Protein (Negative) Urine Ketones (Negative) Urine Mucus (None) /hpf Influenza Type A (PCR) (Not Detectd) 06/20/24 06/20/24 Range/Units 13:43 15:15 Plt Count (150-450) k/uL Lymphocytes # (1.0-4.8) k/uL Carbon Dioxide (22-30) mmol/L BUN (9-20) mg/dL Glucose (74-99) mg/dL Plasma Lactic Acid Francisco (0.7-2.0) mmol/L Urine Protein 2+ H (Negative) Urine Ketones 1+ H (Negative) Urine Mucus Rare H (None) /hpf Influenza Type A (PCR) Detected A (Not Detectd)
[2024-06-20] MEDS: IPRATROPIUM-ALBUTEROL 3 ML NEB INHALATION SCH (16:43)
[2024-06-20] MEDS: methylPREDNISolone SOD SUCCI 40 MG/ML 1 ML VIAL IV SCH (21:03)
[2024-06-20] MEDS: OSELTAMIVIR 75 MG CAP PO SCH (21:03)
[2024-06-20] MEDS: FAMOTIDINE 20 MG TAB PO SCH (21:06)
[2024-06-21] MEDS: SODIUM CHLORIDE 0.9% 500 ML 500 ML IV STA (00:01)
[2024-06-21] MEDS: KETOROLAC 15 MG/ML 1 ML VIAL IVP PRN (02:55)
[2024-06-21] MEDS: LOSARTAN 25 MG TAB PO SCH (08:33)
[2024-06-21] MEDS: ENOXAPARIN 40 MG/0.4 ML SYRINGE SQ SCH (08:33)
[2024-06-21 10:36] LABS: Basophils # (A) 0 X 10*3/uL (0.00-0.10); Basophils % (A) 0 %; Eosinophils # (A) 0 X 10*3/uL (0.04-0.35); Eosinophils % (A) 0 %; HCT 38.4 % (39.6-50.0); HGB 12.7 g/dL (13.0-17.0); Lymphocytes # (A) 0.35 X 10*3/uL (0.90-5.00); Lymphocytes % (A) 5.2 %; MCH 31.1 pg (27.0-32.0); MCHC 33.1 g/dL (32.0-37.0); MCV 94.1 FL (80.0-97.0); Mean Platelet Volume 11.2 FL (9.5-12.2); Monocytes # (A) 0.25 X 10*3/uL (0.20-1.00); Monocytes % (A) 3.7 %; NRBC Per 100 WBC 0 X 10*3/uL (0.00-0.01); Neutrophils # (A) 6.13 X 10*3/uL (1.80-7.70); Neutrophils % (A) 90.7 %; Platelet Count 122 X 10*3/uL (140-440); RBC 4.08 X 10*6/uL (4.40-5.60); RDW 12.9 % (11.5-14.5); WBC 6.76 X 10*3/uL (4.50-10.00)
--- NOTE | 2024-06-21 10:37 | P.PN ---
Subjective 68-year-old patient with known history of COPD came in with complaints of cough congestion. Patient is found to have influenza chest x-ray did not show any pneumonia at this time patient has history of COPD continues to smoke, current has been trying to quit and cut down on smoking. Patient does not use any oxygen at home is requiring oxygen here is having wheezing on exam. 06/21 Patient still complaining from shortness of breath and wheezing although he reports improvement He states his chest pressure about 4/10 something sitting in his chest. He has a history of coronary artery disease with multiple stents, Dr. Agustin put s tent for him few years ago. 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 Mild coughing. He had low-grade fever at 100.2 on admission most likely related to his influenza A infection and currently covered with Tamiflu. Also he is on Zithromax for possible bronchitis and IV Solu-Medrol for acute COPD exacerbation we are going to increase it to 40 mg twice daily up to 3 times daily. EKG showing sinus rhythm at [address] depression on V3-V6, seen in previous EKG but less pronounced. Repeat EKG this morning showing similar ST changes but less pronounced REVIEW OF SYSTEMS: All other systems are negative except those mentioned in the HPI PHYSICAL EXAMINATION: GENERAL: The patient is alert and oriented x3, not in any acute distress. Well developed, well nourished. HEENT: Pupils are round and equally reacting to light. EOMI. No scleral icterus. No conjunctival pallor. Normocephalic, atraumatic. No pharyngeal erythema. No thyromegaly. CARDIOVASCULAR: S1 and S2 present. No murmurs, rubs, or gallops. PULMONARY: Expiratory wheezing and rhonchi on exam. ABDOMEN: Soft, nontender, nondistended, normoactive bowel sounds. No palpable organomegaly. MUSCULOSKELETAL: No joint swelling or deformity. EXTREMITIES: No cyanosis, clubbing, or pedal edema. NEUROLOGICAL: Gross neurological examination did not reveal any focal deficits. SKIN: No rashes. Assessment and plan -COPD with acute exacerbation patient will be started on systemic steroids and additional treatments. Increase IV Solu-Medrol -influenza A patient will be started on Tamiflu patient states symptoms started about 2 days ago -Possible secondary bacterial bronchitis for which patient is on azithromycin w hich will be continued-lactic acidosis secondary to intravascular volume depletion dehydration patient is on IV fluids which will be continued -Possibility of bacterial bronchitis that cannot be ruled out -Coronary artery disease status post previous stent. Repeat EKG showing better ST depression in the lateral leads. Consult cardiology team -Hypertension: For chronic medical problems patient will be resumed on appropriate home medications. DVT prophylaxis: Lovenox Objective - Vital Signs Vital signs: Vital Signs Temp 100.2 F H 06/20/24 13:14 Pulse 68 06/21/24 09:22 Resp 18 06/21/24 07:10 BP 121/66 06/21/24 07:10 Pulse Ox 95 06/21/24 07:10 FiO2 Intake & Output 06/20/24 06/21/24 06/21/24 18:59 06:59 18:59 Weight 81.647 kg - Labs CBC & Chem 7: 06/21/24 05:04 06/20/24 13:43 Labs: Abnormal Lab Results - Last 24 Hours (Table) 06/20/24 06/20/24 06/20/24 Range/Units 13:43 13:43 13:43 Plt Count 133 L (150-450) k/uL Lymphocytes # 0.4 L (1.0-4.8) k/uL Carbon Dioxide 20 L (22-30) mmol/L BUN 22 H (9-20) mg/dL Glucose 117 H (74-99) mg/dL Plasma Lactic Acid Francisco 3.0 H* (0.7-2.0) mmol/L Urine Protein (Negative) Urine Ketones (Negative) Urine Mucus (None) /hpf Influenza Type A (PCR) (Not Detectd) 06/20/24 06/20/24 06/20/24 Range/Units 13:43 15:15 16:58 Plt Count (150-450) k/uL Lymphocytes # (1.0-4.8) k/uL Carbon Dioxide (22-30) mmol/L BUN (9-20) mg/dL Glucose (74-99) mg/dL Plasma Lactic Acid Francisco 3.7 H* (0.7-2.0) mmol/L Urine Protein 2+ H (Negative) Urine Ketones 1+ H (Negative) Urine Mucus Rare H (None) /hpf Influenza Type A (PCR) Detected A (Not Detectd) 02/15/25 02/16/25 02/16/25 Range/Units 20:17 00:34 05:04 Plt Count (150-450) k/uL Lymphocytes # (1.0-4.8) k/uL Carbon Dioxide (22-30) mmol/L BUN (9-20) mg/dL Glucose (74-99) mg/dL Plasma Lactic Acid Francisco 3.3 H* 4.0 H* 2.7 H* (0.7-2.0) mmol/L Urine Protein (Negative) Urine Ketones (Negative) Urine Mucus (None) /hpf Influenza Type A (PCR) (Not Detectd)
[2024-06-21 13:40] LABS: ALT 26 U/L (10-49); AST 30 U/L (14-35); Albumin 3.8 g/dL (3.8-4.9); Albumin/Globulin Ratio 2.11 Ratio (1.60-3.17); Alkaline Phosphatase 78 U/L (41-126); BUN/Creat Ratio 23.36 Ratio (12.00-20.00); Blood Urea Nitrogen 25.7 mg/dL (9.0-27.0); Calcium 8.1 mg/dL (8.7-10.3); Chloride 109 mmol/L (96-109); Globulin 1.8 g/dL (1.6-3.3); Glucose 208 mg/dL (70-110); Potassium 4.5 mmol/L (3.5-5.5); Sodium 138 mmol/L (135-145); Total Bilirubin <0.2 mg/dL (0.3-1.2); Total Protein 5.6 g/dL (6.2-8.2)
[2024-06-21 14:20] LABS: Carbon Dioxide 16.6 mmol/L (21.6-31.8)
[2024-06-21] MEDS ORDERED: IPRATROPIUM-ALBUTEROL 3 ML NEB INHALATION PRN (19:35)
[2024-06-21] MEDS: IPRATROPIUM-ALBUTEROL 3 ML NEB INHALATION SCH (19:48)
[2024-06-22] MEDS ORDERED: TEMAZEPAM 15 MG CAP PO PRN (07:34)
--- NOTE | 2024-06-22 07:39 | P.PN ---
Subjective 68-year-old patient with known history of COPD came in with complaints of cough congestion. Patient is found to have influenza chest x-ray did not show any pneumonia at this time patient has history of COPD continues to smoke, current has been trying to quit and cut down on smoking. Patient does not use any oxygen at home is requiring oxygen here is having wheezing on exam. 06/21 Patient still complaining from shortness of breath and wheezing although he reports improvement He states his chest pressure about 4/10 something sitting in his chest. He has a history of coronary artery disease with multiple stents, Dr. Agustin put stent for him few years ago. 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 Mild coughing. He had low-grade fever at 100.2 on admission most likely related to his influenza A infection and currently covered with Tamiflu. Also he is on Zithromax for possible bronchitis and IV Solu-Medrol for acute COPD exacerbation we are going to increase it to 40 mg twice daily up to 3 times daily. EKG showing sinus rhythm at [address] depression on V3-V6, seen in previous EKG but less pronounced. Repeat EKG this morning showing similar ST changes but less pronounced 06/22 Patient still short of breath and wheezing a lot, actually looks little worse than yesterday He cannot sleep well while he is waiting for his room in the emergency room. He has uncomfortable bed. He is asking adamantly for a sleeping pill No significant chest pressure but asked something to help him with cough. No abdominal pain or any other complaints Currently he is on room air. On exam he still have extensive wheezing He looks anxious Lactic acid came back to normal 1.6, troponin x 2 is negative. EKG less ST depression on the lateral and inferior leads but it is also upsloping Continued on IV Solu-Medrol 60 mg, attribute this in. Repeat chest x-ray. Consult pulmonary ro service REVIEW OF SYSTEMS: All other systems are negative except those mentioned in the HPI PHYSICAL EXAMINATION: GENERAL: The patient is alert and oriented x3, not in any acute distress. Well developed, well nourished. HEENT: Pupils are round and equally reacting to light. EOMI. No scleral icterus. No conjunctival pallor. Normocephalic, atraumatic. No pharyngeal erythema. No thyromegaly. CARDIOVASCULAR: S1 and S2 present. No murmurs, rubs, or gallops. PULMONARY: Expiratory wheezing and rhonchi on exam. ABDOMEN: Soft, nontender, nondistended, normoactive bowel sounds. No palpable organomegaly. MUSCULOSKELETAL: No joint swelling or deformity. EXTREMITIES: No cyanosis, clubbing, or pedal edema. NEUROLOGICAL: Gross neurological examination did not reveal any focal deficits. SKIN: No rashes. Assessment and plan -COPD with acute exacerbation patient will be started on systemic steroids and additional treatments. Increase IV Solu-Medrol. Repeat chest x-ray. Pulmonary consult -influenza A patient will be started on Tamiflu patient states symptoms started about 2 days ago -Possible secondary bacterial bronchitis for which patient is on azithromycin which will be continued-lactic acidosis secondary to intravascular volume depletion dehydration patient is on IV fluids which will be continued -Possibility of bacterial bronchitis that cannot be ruled out -Coronary artery disease status post previous stent. Repeat EKG showing better ST depression in the lateral leads. Consult cardiology team -Hypertension: For chronic medical problems patient will be resumed on appropriate home medications. DVT prophylaxis: Lovenox Objective - Vital Signs Vital signs: Vital Signs Temp 97.3 F L 06/21/24 19:53 Pulse 73 06/22/24 05:00 Resp 18 06/22/24 05:00 BP 151/84 06/22/24 05:00 Pulse Ox 96 06/21/24 14:00 FiO2 Intake & Output 06/21/24 06/22/24 06/22/24 18:59 06:59 18:59 Weight 81.647 kg Other: # Voids 4 - Labs CBC & Chem 7: 06/21/24 05:04 06/21/24 05:04 Labs: Abnormal Lab Results - Last 24 Hours (Table) 06/21/24 06/21/24 06/21/24 Range/Units 05:04 05:04 10:20 RBC 4.08 L (4.40-5.60) X 10*6/uL Hgb 12.7 L (13.0-17.0) g/dL Hct 38.4 L (39.6-50.0) % Plt Count 122 L (140-440) X 10*3/uL Lymphocytes # 0.35 L (0.90-5.00) X 10*3/uL Eosinophils # 0 L (0.04-0.35) X 10*3/uL Carbon Dioxide 16.6 L (21.6-31.8) mmol/L Anion Gap 12.40 H (4.00-12.00) mmol/L BUN/Creatinine Ratio 23.36 H (12.00-20.00) Ratio Glucose 208 H (70-110) mg/dL Plasma Lactic Acid Francisco 2.8 H* (0.7-2.0) mmol/L Calcium 8.1 L (8.7-10.3) mg/dL Total Bilirubin <0.2 L (0.3-1.2) mg/dL Total Protein 5.6 L (6.2-8.2) g/dL 06/21/24 Range/Units 14:19 RBC (4.40-5.60) X 10*6/uL Hgb (13.0-17.0) g/dL Hct (39.6-50.0) % Plt Count (140-440) X 10*3/uL Lymphocytes # (0.90-5.00) X 10*3/uL Eosinophils # (0.04-0.35) X 10*3/uL Carbon Dioxide (21.6-31.8) mmol/L Anion Gap (4.00-12.00) mmol/L BUN/Creatinine Ratio (12.00-20.00) Ratio Glucose (70-110) mg/dL Plasma Lactic Acid Francisco 2.7 H* (0.7-2.0) mmol/L Calcium (8.7-10.3) mg/dL Total Bilirubin (0.3-1.2) mg/dL Total Protein (6.2-8.2) g/dL
[2024-06-22 08:47] LABS: Blood Urea Nitrogen 26.2 mg/dL (9.0-27.0); Calcium 8.4 mg/dL (8.7-10.3); Chloride 112 mmol/L (96-109); Glucose 162 mg/dL (70-110); Potassium 4.9 mmol/L (3.5-5.5); Sodium 142 mmol/L (135-145)
--- NOTE | 2024-06-22 10:12 | XR ---
EXAMINATION TYPE: XR chest 2V DATE OF EXAM: 06/22/2024 10:09 AM COMPARISON: 06/20/2024 CLINICAL INDICATION: Male, 68 years old with history of sob, TECHNIQUE: XR chest 2V view(s) obtained. FINDINGS: The heart size is normal. The pulmonary vasculature is normal. The lungs are clear. IMPRESSION: 1. No acute pulmonary process. [facility], , 06/22/2024 10:10 AM
[2024-06-22] MEDS: ALPRAZolam 0.5 MG TAB PO STA (10:22)
[2024-06-22] MEDS: amLODIPine 5 MG TAB PO SCH (10:22)
[2024-06-22] MEDS: ASPIRIN 81 MG PO SCH (10:22)
[2024-06-22] MEDS: methylPREDNISolone SOD SUCCI 125 MG/2 ML VIAL IV SCH (10:23)
[2024-06-22] MEDS: guaiFENesin-DM 100-10MG/5ML 10 ML CUP PO SCH (10:41)
--- NOTE | 2024-06-22 11:52 | P.CRDCN ---
History of Present Illness Consult date: 06/22/24 Consult reason: chest pain (history of CAD) History of present illness: This is a 68-year-old male patient of Dr. Agustin with past medical history of rheumatoid arthritis, tobacco use, right kidney cancer status post nephrectomy, coronary artery disease status post PCI of the RCA in May 2020, unable to tolerate antianginal medications, multiple abdominal vascular procedures, details are not available. We have been asked to evaluate the patient for chest pain with history of coronary artery disease. Patient states that on Saturday he started having a raspy throat feeling and then it continued to worsen on as well as Saturday. He states he had a cough and felt like he had sputum was not able to bring it up. He complains of fever and chills. He called EMS as blood pressure was 227/120. He states he has chest pain every time he coughs. Upon arrival to [facility] emergency center, blood pressure was 180/73. His blood pressure is now 151/84, heart rate 73, pulse ox 96% on room air. Patient has tested positive for influenza and started on Tamiflu, nebulizer treatments and steroids. -EKG: Sinus rhythm with nonspecific ST changes. -Chest x-ray 06/22: No acute process. -Laboratory studies: WBC 6.7, hemoglobin 12.7, count 122. Sodium 142, potassium 4.9, BUN 26 creatinine 1. Lactic acid 3.3 down to 1.6. Troponin negative x 2. Influenza A positive. -Home cardiac medications: Amlodipine 5 mg daily, Nitrostat. -Cardiac catheterization performed revealed patent RCA stent with mild luminal irregularities and an LVEDP of 16. Review Of Systems: At the time of my exam: CONSTITUTIONAL: Denies fever or chills. HEENT: Denies blurred vision, vision changes, or eye pain. Denies hemoptysis CARDIOVASCULAR: Denies chest pain. Denies orthopnea. Denies PND. Denies palpitations RESPIRATORY: Denies shortness of breath. GASTROINTESTINAL: Denies abdominal pain. Denies nausea or vomiting. HEMATOLOGIC: Denies bleeding disorders. GENITOURINARY: Denies any blood in urine. SKIN: Denies puritis. Denies rash. Physical examination: Gen: This is 68-year-old male in no acute distress. VS: reviewed HEENT: Head is atraumatic, normocephalic. Pupils equal, round. Sclerae is anicteric. NECK: Supple. No JVD. LUNGS: Bilateral expiratory wheeze i. No intercostal retractions. HEART: Regular rate and rhythm. No murmur. ABDOMEN: Soft No tenderness. EXTREMITIES: No pedal edema. No calf tenderness. NEUROLOGICAL: Patient is awake, alert and oriented x3. Assessment: Influenza A Possible COPD exacerbation History of coronary artery disease with PCI of the RCA in May 2020 Chronic chest pain and dyspnea on exertion Hyperlipidemia Bridging of the LAD, Thrombocytopenia History of kidney cancer status post nephrectomy History of TIA Plan: Resume patient's home cardiac medications Start patient on aspirin 81 mg daily, atorvastatin 40 mg at bedtime Obtain 2-D echocardiogram and Doppler study to assess cardiac structure and function Further recommendations to follow based upon clinical course Thank you kindly for this consultation. Nurse practitioner note has been reviewed, I agree with documented findings and plan of care. Patient was seen and examined. Past Medical History Past Medical History: Coronary Artery Disease (CAD), Cancer, Chest Pain / Angina, COPD, CVA/TIA, Hearing Disorder / Deafness, Hyperlipidemia, Hypertension, Myocardial Infarction ([place]), Pneumonia, Rheumatoid Arthritis (RA) Additional Past Medical History / Comment(s): See Cardiology H&P. HX RIGHT KIDNEY CANCER WITH NEPHRECTOMY - no chemo, no radiation. Hx of shingles. Hx TIA 2021 with no residual effects. SOB with activity. Hx kidney stones Feb 2024. Bilateral hearing aids. Last Myocardial Infarction Date:: 05-25-2020 History of Any Multi-Drug Resistant Organisms: None Reported Past Surgical History: Heart Catheterization With Stent, Joint Replacement, Orthopedic Surgery Additional Past Surgical History / Comment(s): RIGHT NEPHRECTOMY, RIGHT KNEE REPLACEMENT, LEFT ROTATOR CUFF REPAIR, LEFT HAND REMOVAL OF A NAIL, MULTIPLE BILATERAL KNEE ARTHROSCOPIES, CLOSED REDUCTION/PINNING OF RIGHT HIP, multiple vascular angioplasties/STENTS. Past Anesthesia/Blood Transfusion Reactions: Motion Sickness, Postoperative Na usea & Vomiting (PONV) Additional Past Anesthesia/Blood Transfusion Reaction / Comment(s): No hx blood transfusion. Date of Last Stent Placement:: 08/2023 Past Psychological History: No Psychological Hx Reported Additional Psychological History / Comment(s): pt lives with in a single level home that has 3 porch steps. pt drives. no past service. 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 no home care services, no medical equipment. Smoking Status: Current some day smoker Past Alcohol Use History: None Reported Additional Past Alcohol Use History / Comment(s): STARTED SMOKING AT AGE 14(1972) and quit at age 61(2017) restarted last year, smokes about 3-4 cigarettes daily. Past Drug Use History: None Reported Additional Drug Use History / Comment(s): . - Past Family History Mother Family Medical History: Cancer Father Family Medical History: Cancer, Deep Vein Thrombosis (DVT) Medications and Allergies Home Medications Medication Instructions Recorded Confirmed Type Acetaminophen Tab [Tylenol Tab] 1,000 mg PO BID 06/20/24 06/20/24 History Diclofenac Sodium [Voltaren] 75 mg PO BID 06/20/24 06/20/24 History Ketorolac 0.5% Ophth Soln [Acular 1 drop BOTH EYES BID 06/20/24 06/20/24 History 0.5%] Nitroglycerin Sl Tabs [Nitrostat] 0.4 mg SL Q5M PRN 06/20/24 06/20/24 History amLODIPine [Norvasc] 5 mg PO DAILY 06/20/24 06/20/24 History prednisoLONE ACETATE 1% OPHTH 1 drop BOTH EYES BID 06/20/24 06/20/24 History [Pred Forte 1%] Allergies Allergy/AdvReac Type Severity Reaction Status Date / Time No Known Allergies Allergy Verified 06/20/24 18:11 Physical Exam Vitals: Vital Signs Temp Pulse Pulse Resp BP BP Pulse Ox 06/22/24 05:00 73 18 151/84 06/21/24 19:53 97.3 F L 73 17 139/61 06/21/24 19:37 73 06/21/24 19:28 73 06/21/24 17:20 68 06/21/24 17:11 65 06/21/24 14:00 98.5 F 73 16 144/83 96 06/21/24 09:22 68 06/21/24 09:09 67 Intake and Output 06/21/24 06/22/24 06/22/24 22:59 06:59 14:59 Other: # Voids 4 Results 06/21/24 05:04 06/22/24 03:50 Cardiac Enzymes 06/21/24 06/21/24 06/21/24 Range/Units 05:04 16:57 21:07 AST 30 (14-35) U/L Troponin I 0.026 0.020 (0.000-0.034) ng/mL CBC 06/21/24 Range/Units 05:04 WBC 6.76 (4.50-10.00) X 10*3/uL RBC 4.08 L (4.40-5.60) X 10*6/uL Hgb 12.7 L (13.0-17.0) g/dL Hct 38.4 L (39.6-50.0) % Plt Count 122 L (140-440) X 10*3/uL Comprehensive Metabolic Panel 06/21/24 Range/Units 05:04 Sodium 138 (135-145) mmol/L Potassium 4.5 (3.5-5.5) mmol/L Chloride 109 (96-109) mmol/L Carbon Dioxide 16.6 L (21.6-31.8) mmol/L BUN 25.7 (9.0-27.0) mg/dL Creatinine 1.1 (0.6-1.5) mg/dL Glucose 208 H (70-110) mg/dL Calcium 8.1 L (8.7-10.3) mg/dL AST 30 (14-35) U/L ALT 26 (10-49) U/L Alkaline Phosphatase 78 (41-126) U/L Total Protein 5.6 L (6.2-8.2) g/dL Albumin 3.8 (3.8-4.9) g/dL Current Medications Generic Name Dose Route Start Last Admin Trade Name Freq PRN Reason Stop Dose Admin Acetaminophen 325 mg 06/22/24 07:36 Acetaminophen Tab 325 Mg Tab PO Q6HR PRN Fever and/ or Pain Albuterol/Ipratropium 3 ml 06/21/24 20:00 06/21/24 19:48 Ipratropium-Albuterol 3 Ml Neb INHALATION Not Given RT-QID NATHAN Albuterol/Ipratropium 3 ml 06/21/24 19:35 Ipratropium-Albuterol 3 Ml Neb INHALATION RT-Q2H PRN Shortness Of Breath Or Wheezing Azithromycin 500 mg 06/20/24 15:45 06/21/24 08:33 Azithromycin 500 Mg Tab PO 06/22/24 09:01 500 mg DAILY NATHAN Administration Protocol Enoxaparin Sodium 40 mg 06/21/24 09:00 06/21/24 08:33 Enoxaparin 40 Mg/0.4 Ml Syringe SQ 40 mg DAILY NATHAN Administration Famotidine 20 mg 06/20/24 21:00 06/21/24 20:28 Famotidine 20 Mg Tab PO 20 mg BID NATHAN Administration Guaifenesin/Dextromethorphan 10 ml 06/22/24 07:45 Guaifenesin-Dm 100-10mg/5ml 10 Ml Cup PO 06/24/24 07:44 Q6HR NATHAN Sodium Chloride 1,000 mls @ 75 mls/hr 06/20/24 15:45 06/21/24 19:49 Saline 0.9% IV 75 mls/hr .[id number] NATHAN Administration Ketorolac Tromethamine 15 mg 06/20/24 15:43 06/21/24 16:30 Ketorolac 15 Mg/Ml 1 Ml Vial IVP 06/23/24 15:44 15 mg Q6HR PRN Administration Moderate Pain (Scale 4 to 6) Losartan Potassium 25 mg 06/21/24 09:00 06/21/24 08:33 Losartan 25 Mg Tab PO 25 mg DAILY NATHAN Administration Methylprednisolone Sodium Succinate 60 mg 06/22/24 09:00 Methylprednisolone Sod Succi 125 Mg/2 Ml Vial IV Q6H NATHAN Naloxone HCl 0.2 mg 06/20/24 15:43 Naloxone 0.4 Mg/Ml 1 Ml Vial IV Q2M PRN Opioid Reversal Oseltamivir Phosphate 75 mg 06/20/24 21:00 06/21/24 20:28 Oseltamivir 75 Mg Cap PO 06/25/24 09:01 75 mg Q12HR NATHAN Administration Protocol Temazepam 15 mg 06/22/24 07:34 Temazepam 15 Mg Cap PO HS PRN Insomnia Intake and Output 06/21/24 06/22/24 06/22/24 22:59 06:59 14:59 Other: # Voids 4 06/21/24 05:04 06/21/24 05:04
[2024-06-22] MEDS: ATORVASTATIN 40 MG TAB PO SCH (19:20)
--- NOTE | 2024-06-22 21:59 | P.CNPUL ---
History of Present Illness Consult date: 06/22/24 Reason for consult: COPD History of present illness: This is a 68-year-old male patient is being seen in consultation for dyspnea and chest pain. The patient came into the emergency department for those symptoms. The viral screen came back positive for influenza A. The patient was kept in the hospital for cardiac evaluation as the patient was complaining of some nonspecific chest pain. He is known to have coronary artery disease and the patient has undergone previous PCI to the RCA back in May 2020. He is also known to have previous nephrectomy for right kidney cancer in addition to history of rheumatoid arthritis. He is not vaccinated. He is currently on room air oxygen with a pulse ox of 95%. Chest x-ray was reviewed and it shows no acute cardiopulmonary process. Blood work shows normal electrolytes, normal renal function, lactic acid level was at 2.7 dropped down to 1.6. Troponins were 0.02 x 2 respectively. White cell count is 6.7 with a was 1.7 and a platelet count of 122. EKG showed no significant ST segment elevations and a cardiology consultation was requested. Echocardiogram is pending for now. The patient is currently on aspirin. He also takes statins for history of hyperlipidemia. Previous cardiac catheterization from April 2024 revealed patent stent to RCA with left ankle end-diastolic pressure of 16. Review of Systems Full review of system was done and the positive findings are mentioned above history of present illness Past Medical History Past Medical History: Coronary Artery Disease (CAD), Cancer, Chest Pain / An hattie, COPD, CVA/TIA, Hearing Disorder / Deafness, Hyperlipidemia, Hypertension, Myocardial Infarction ([place]), Pneumonia, Rheumatoid Arthritis (RA) Additional Past Medical History / Comment(s): See Cardiology H&P. HX RIGHT KIDNEY CANCER WITH NEPHRECTOMY - no chemo, no radiation. Hx of shingles. Hx TIA 2021 with no residual effects. SOB with activity. Hx kidney stones Feb 2024. Bilateral hearing aids. Last Myocardial Infarction Date:: 05-25-2020 History of Any Multi-Drug Resistant Organisms: None Reported Past Surgical History: Heart Catheterization With Stent, Joint Replacement, Orthopedic Surgery Additional Past Surgical History / Comment(s): RIGHT NEPHRECTOMY, RIGHT KNEE REPLACEMENT, LEFT ROTATOR CUFF REPAIR, LEFT HAND REMOVAL OF A NAIL, MULTIPLE BILATERAL KNEE ARTHROSCOPIES, CLOSED REDUCTION/PINNING OF RIGHT HIP, multiple vascular angioplasties/STENTS. Past Anesthesia/Blood Transfusion Reactions: Motion Sickness, Postoperative Nausea & Vomiting (PONV) Additional Past Anesthesia/Blood Transfusion Reaction / Comment(s): No hx blood transfusion. Date of Last Stent Placement:: 08/2023 Past Psychological History: No Psychological Hx Reported Additional Psychological History / Comment(s): pt lives with in a single level home that has 3 porch steps. pt drives. no past service. 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 no home care services, no medical equipment. Smoking Status: Current some day smoker Past Alcohol Use History: None Reported Additional Past Alcohol Use History / Comment(s): STARTED SMOKING AT AGE 14(1971) and quit at age 61(2017) restarted last year, smokes about 3-4 cigarettes daily. Past Drug Use History: None Reported Additional Drug Use History / Comment(s): . - Past Family History Mother Family Medical History: Cancer Father Family Medical History: Cancer, Deep Vein Thrombosis (DVT) Medications and Allergies Home Medications Medication Instructions Recorded Confirmed Type Acetaminophen Tab [Tylenol Tab] 1,000 mg PO BID 06/20/24 06/20/24 History Diclofenac Sodium [Voltaren] 75 mg PO BID 06/20/24 06/20/24 History Ketorolac 0.5% Ophth Soln [Acular 1 drop BOTH EYES BID 06/20/24 06/20/24 History 0.5%] Nitroglycerin Sl Tabs [Nitrostat] 0.4 mg SL Q5M PRN 06/20/24 06/20/24 History amLODIPine [Norvasc] 5 mg PO DAILY 06/20/24 06/20/24 History prednisoLONE ACETATE 1% OPHTH 1 drop BOTH EYES BID 06/20/24 06/20/24 History [Pred Forte 1%] Allergies Allergy/AdvReac Type Severity Reaction Status Date / Time No Known Allergies Allergy Verified 06/20/24 18:11 Physical Exam Vitals: Vital Signs Temp Pulse Pulse Resp BP BP Pulse Ox 06/22/24 21:40 97.9 F 70 16 138/57 95 06/22/24 21:13 80 06/22/24 21:04 84 06/22/24 18:23 68 18 127/63 99 06/22/24 17:30 80 06/22/24 17:19 72 06/22/24 13:39 97.8 F 73 16 131/77 95 06/22/24 11:39 85 06/22/24 11:31 83 06/22/24 10:44 80 18 147/77 96 06/22/24 09:00 70 06/22/24 08:46 65 06/22/24 05:00 73 18 151/84 The patient appeared well nourished and normally developed. Vital signs as docum ented. Currently on room air oxygen Head exam is unremarkable. No scleral icterus or corneal arcus noted. Neck is without jugular venous distension, thyromegaly, or carotid bruits. Carotid upstrokes are brisk bilaterally. Lungs are showing few scattered expiratory wheezes bilaterally. Breath sounds are distant. Cardiac exam reveals the PMI to be normally sized and situated. Rhythm is regular. First and second heart sounds normal. No murmurs, rubs or gallops. Abdominal exam reveals normal bowel sounds, no masses, no organomegaly and no aortic enlargement. Extremities are nonedematous and both femoral and pedal pulses are normal. Examination of the skin revealed no evidence of significant rashes, suspicious appearing nevi or other concerning lesions. Neurologically, the patient is awake and alert and the patient does not have any focal neurological deficit. Cranial nerves are essentially intact. Results - Laboratory Findings CBC and BMP: 06/21/24 05:04 06/22/24 03:50 PT/INR, D-dimer PT 10.5 sec (10.0-12.5) 06/20/24 13:43 INR 0.9 (<1.2) 06/20/24 13:43 Abnormal lab findings: Abnormal Labs 06/20/24 06/20/24 06/20/24 13:43 13:43 13:43 RBC Hgb Hct Plt Count 133 L Lymphocytes # 0.4 L Eosinophils # Chloride Carbon Dioxide 20 L Anion Gap BUN 22 H BUN/Creatinine Ratio Glucose 117 H Plasma Lactic Acid Francisco 3.0 H* Calcium Total Bilirubin Total Protein Urine Protein Urine Ketones Urine Mucus Influenza Type A (PCR) 06/20/24 06/20/24 06/20/24 13:43 15:15 16:58 RBC Hgb Hct Plt Count Lymphocytes # Eosinophils # Chloride Carbon Dioxide Anion Gap BUN BUN/Creatinine Ratio Glucose Plasma Lactic Acid Francisco 3.7 H* Calcium Total Bilirubin Total Protein Urine Protein 2+ H Urine Ketones 1+ H Urine Mucus Rare H Influenza Type A (PCR) Detected A 06/20/24 06/21/24 06/21/24 20:17 00:34 05:04 RBC 4.08 L Hgb 12.7 L Hct 38.4 L Plt Count 122 L Lymphocytes # 0.35 L Eosinophils # 0 L Chloride Carbon Dioxide Anion Gap BUN BUN/Creatinine Ratio Glucose Plasma Lactic Acid Francisco 3.3 H* 4.0 H* Calcium Total Bilirubin Total Protein Urine Protein Urine Ketones Urine Mucus Influenza Type A (PCR) 06/21/24 06/21/24 06/21/24 05:04 05:04 10:20 RBC Hgb Hct Plt Count Lymphocytes # Eosinophils # Chloride Carbon Dioxide 16.6 L Anion Gap 12.40 H BUN BUN/Creatinine Ratio 23.36 H Glucose 208 H Plasma Lactic Acid Francisco 2.7 H* 2.8 H* Calcium 8.1 L Total Bilirubin <0.2 L Total Protein 5.6 L Urine Protein Urine Ketones Urine Mucus Influenza Type A (PCR) 06/21/24 06/22/24 14:19 03:50 RBC Hgb Hct Plt Count Lymphocytes # Eosinophils # Chloride 112 H Carbon Dioxide 20.0 L Anion Gap BUN BUN/Creatinine Ratio 26.20 H Glucose 162 H Plasma Lactic Acid Francisco 2.7 H* Calcium 8.4 L Total Bilirubin Total Protein Urine Protein Urine Ketones Urine Mucus Influenza Type A (PCR) Assessment and Plan Plan: Acute influenza A infection COPD with possibly a component of mild exacerbation secondary influenza A Coronary artery disease with previous stenting to RCA, patent based on a cardiac catheterization from April 2024 History of renal cell carcinoma with a previous right nephrectomy Rheumatoid arthritis Hypertension Hyperlipidemia Impaired hearing and the patient wears bilateral hearing aids Previous history of TIA back in 2021 without any residual deficits History of shingles Plan Patient is currently on room air oxygen Continue [facility] Complete the course of Tamiflu Echocardiogram in a.m. Cardiology consultation Lovenox for DVT prophylaxis The patient to be transition to a prednisone burst taper as of tomorrow. Currently on IV Solu-Medrol IV fluids normal saline at rate of 75 cc an hour Patient was started on statins, currently on Lipitor 40 mg p.o. daily. Continue aspirin Continue Cozaar Continue Norvasc Will follow
[2024-06-23] MEDS ORDERED: HALOPERIDOL LACTATE 5 MG/ML 1 ML VIAL IM PRN (01:30)
[2024-06-23 07:27] LABS: Basophils % (A) 0 %; Eosinophils % (A) 0 %; HCT 37.6 % (39.0-53.0); HGB 12.1 gm/dL (13.0-17.5); Lymphocytes # (A) 0.6 k/uL (1.0-4.8); Lymphocytes % (A) 7 %; MCH 30.7 pg (25.0-35.0); MCHC 32.3 g/dL (31.0-37.0); Mean Platelet Volume 8.6; Monocytes # (A) 0.4 k/uL (0-1.0); Monocytes % (A) 5 %; Neutrophils # (A) 6.6 k/uL (1.3-7.7); Neutrophils % (A) 87 %; Platelet Count 161 k/uL (150-450); RBC 3.96 m/uL (4.30-5.90); RDW 13.5 % (11.5-15.5); WBC 7.6 k/uL (3.8-10.6)
[2024-06-23 07:58] LABS: African American GFR (CKD) >90 (>60 ml/min/1.73 sqM); Anion Gap 10 mmol/L; Blood Urea Nitrogen 26 mg/dL (9-20); Carbon Dioxide 18 mmol/L (22-30); Chloride 112 mmol/L (98-107); Glucose 135 mg/dL (74-99); Non-African American GFR(CKD) 87 (>60 ml/min/1.73 sqM); Potassium 4.7 mmol/L (3.5-5.1); Sodium 140 mmol/L (137-145)
[2024-06-23] MEDS: predniSONE 20 MG TAB PO STA (09:09)
--- NOTE | 2024-06-23 17:53 | P.PN ---
Subjective Progress Note Date: 06/23/24 This is a 68-year-old male patient is being seen in consultation for dyspnea and chest pain. The patient came into the emergency department for those symptoms. The viral screen came back positive for influenza A. The patient was kept in the hospital for cardiac evaluation as the patient was complaining of some nonspecific chest pain. He is known to have coronary artery disease and the patient has undergone previous PCI to the RCA back in May 2020. He is also known to have previous nephrectomy for right kidney cancer in addition to history of rheumatoid arthritis. He is not vaccinated. He is currently on room air oxygen with a pulse ox of 95%. Chest x-ray was reviewed and it shows no a cute cardiopulmonary process. Blood work shows normal electrolytes, normal renal function, lactic acid level was at 2.7 dropped down to 1.6. Troponins were 0.02 x 2 respectively. White cell count is 6.7 with a was 1.7 and a platelet count of 122. EKG showed no significant ST segment elevations and a cardiology consultation was requested. Echocardiogram is pending for now. The patient is currently on aspirin. He also takes statins for history of hyperlipidemia. Previous cardiac catheterization from April 2024 revealed patent stent to RCA with left ankle end-diastolic pressure of 16. On 06/23/2024, the patient is being seen for a follow-up. The patient is still congested and overnight, he encountered some increased hallucination probably due to systemic steroids/IV Solu-Medrol. Based on that, IV Solu-Medrol was discontinued and the patient was started on prednisone burst taper. He remains on Tamiflu. He remains on DuoNeb the regiment [id number]. He remains on room air oxygen with a pulse ox of 96%. The white cell count 7.6 with a heme of 4.1 and a platelet count of 161. BUN is 26 with a creatinine of 0.8. Sodium is at 140. Serum bicarb is at 18. The patient remains on DuoNeb [facility]. Lovenox 40 mg subcu for DVT prophylaxis. He is on Robitussin DM for cough and congestion. He is also on Tamiflu. Objective - Vital Signs Vital signs: Vital Signs Temp 98.1 F 06/23/24 08:00 Pulse 72 06/23/24 10:31 Resp 17 06/23/24 09:10 BP 144/81 06/23/24 08:00 Pulse Ox 95 06/23/24 08:00 FiO2 Intake & Output 06/22/24 06/23/24 06/23/24 18:59 06:59 18:59 Intake Total 1744 Balance 1744 Intake: IV 10 Invasive Line 2 10 Oral 1734 Other: Voiding Method Toilet Toilet # Voids 5 # Bowel Movements 1 - Exam The patient appeared well nourished and normally developed. Vital signs as documented. Currently on room air oxygen Head exam is unremarkable. No scleral icterus or corneal arcus noted. Neck is without jugular venous distension, thyromegaly, or carotid bruits. Carotid upstrokes are brisk bilaterally. Lungs are showing few scattered expiratory wheezes bilaterally. Breath sounds are distant. Cardiac exam reveals the PMI to be normally sized and situated. Rhythm is regular. First and second heart sounds normal. No murmurs, rubs or gallops. Abdominal exam reveals normal bowel sounds, no masses, no organomegaly and no aortic enlargement. Extremities are nonedematous and both femoral and pedal pulses are normal. Examination of the skin revealed no evidence of significant rashes, suspicious appearing nevi or other concerning lesions. Neurologically, the patient is awake and alert and the patient does not have any focal neurological deficit. Cranial nerves are essentially intact. - Labs CBC & Chem 7: 06/23/24 06:53 06/23/24 06:53 Labs: Abnormal Lab Results - Last 24 Hours (Table) 06/23/24 06/23/24 Range/Units 06:53 06:53 RBC 3.96 L (4.30-5.90) m/uL Hgb 12.1 L (13.0-17.5) gm/dL Hct 37.6 L (39.0-53.0) % Lymphocytes # 0.6 L (1.0-4.8) k/uL Chloride 112 H (98-107) mmol/L Carbon Dioxide 18 L (22-30) mmol/L BUN 26 H (9-20) mg/dL Glucose 135 H (74-99) mg/dL Assessment and Plan Plan: Acute influenza A infection, currently on Tamiflu COPD with possibly a component of mild exacerbation secondary influenza A, currently on bronchodilators. IV Solu-Medrol was discontinued based on some increased hallucinations and restlessness that occurred overnight. Coronary artery disease with previous stenting to RCA, patent based on a cardiac catheterization from April 2024 History of renal cell carcinoma with a previous right nephrectomy Rheumatoid arthritis Hypertension Hyperlipidemia Impaired hearing and the patient wears bilateral hearing aids Previous history of TIA back in 2021 without any residual deficits History of shingles Plan Patient is currently on room air oxygen Continue Brandon veliz Complete the course of Tamiflu Echocardiogram in a.m., results are still pending Lovenox for DVT prophylaxis The patient to be transition to a prednisone burst taper as of tomorrow. IV Solu-Medrol was discontinued because of some increased hallucinations IV fluids normal saline at rate of 75 cc an hour Patient was started on statins, currently on Lipitor 40 mg p.o. daily. Continue aspirin Continue Cozaar Continue Nordavionc Will follow
--- NOTE | 2024-06-23 18:32 | P.PN ---
Subjective 68-year-old patient with known history of COPD came in with complaints of cough congestion. Patient is found to have influenza chest x-ray did not show any pneumonia at this time patient has history of COPD continues to smoke, current has been trying to quit and cut down on smoking. Patient does not use any oxygen at home is requiring oxygen here is having wheezing on exam. 06/21 Patient still complaining from shortness of breath and wheezing although he reports improvement He states his chest pressure about 4/10 something sitting in his chest. He has a history of coronary artery disease with multiple stents, Dr. Agustin put stent for him few years ago. And he is supposed to follow-up with compliance auditor. Mild coughing. He had low-grade fever at 100.2 on admission most likely related to his influenza A infection and currently covered with Tamiflu. Also he is on Zithromax for possible bronchitis and IV Solu-Medrol for acute COPD exacerbation we are going to increase it to 40 mg twice daily up to 3 times daily. EKG showing sinus rhythm at [address] depression on V3-V6, seen in previous EKG but less pronounced. Repeat EKG this morning showing similar ST changes but less pronounced 06/22 Patient still short of breath and wheezing a lot, actually looks little worse than yesterday He cannot sleep well while he is waiting for his room in the emergency room. He has uncomfortable bed. He is asking adamantly for a sleeping pill No significant chest pressure but asked something to help him with cough. No abdominal pain or any other complaints Currently he is on room air. On exam he still have extensive wheezing He looks anxious Lactic acid came back to normal 1.6, troponin x 2 is negative. EKG less ST depression on the lateral and inferior leads but it is also upsloping Continued on IV Solu-Medrol 60 mg, attribute this in. Repeat chest x-ray. 06/23 Patient today feels much better, his dyspnea improved, he has very minimal wheezing, he is on room air not tachypneic and denies chest pain. Patient has bad nightmare overnight and he was little anxious, they will call medical donation professional ordered him Haldol but he did not needed because he calmed down in the morning. However patient does not want to take IV Solu-Medrol 60 mg which was stopped and it was switched to oral prednisone per recommendation of pulmonary service which I think is appropriate to switch him to oral dose given his significant improvement. We are going to discharge the patient today once cleared by cardiology, since morning a conditional discharge order placed, compliance auditor discussed with the staff requesting echocardiogram prior to discharge which is still pending. Patient denies any other new complaint and he wants to go home eagerly. Patient will be discharged once cleared by cardiology service Consult pulmonary ro service REVIEW OF SYSTEMS: All other systems are negative except those mentioned in the HPI PHYSICAL EXAMINATION: GENERAL: The patient is alert and oriented x3, not in any acute distress. Well developed, well nourished. HEENT: Pupils are round and equally reacting to light. EOMI. No scleral icterus. No conjunctival pallor. Normocephalic, atraumatic. No pharyngeal erythema. No thyromegaly. CARDIOVASCULAR: S1 and S2 present. No murmurs, rubs, or gallops. PULMONARY: Expiratory wheezing and rhonchi on exam. ABDOMEN: Soft, nontender, nondistended, normoactive bowel sounds. No palpable organomegaly. MUSCULOSKELETAL: No joint swelling or deformity. EXTREMITIES: No cyanosis, clubbing, or pedal edema. NEUROLOGICAL: Gross neurological examination did not reveal any focal deficits. SKIN: No rashes. Assessment and plan -COPD with acute exacerbation patient will be started on systemic steroids and additional treatments. Switch to oral prednisone. Repeat chest x-ray: Unremarkable. Pulmonary consult -influenza A patient will be started on Tamiflu, doing well -Possible secondary bacterial bronchitis for which patient is on azithromycin which is completed. Patient does not need IV fluid which was stopped because blood pressure was slightly elevated -Possibility of bacterial bronchitis, currently resolved -Coronary artery disease status post previous stent. Repeat EKG showing better ST depression in the lateral leads. Consult cardiology team who recommended to start aspirin and statin, compliance auditor recommended echocardiogram which is still pending -Hypertension: For chronic medical problems patient will be resumed on appropriate home medications. DVT prophylaxis: Lovenox Disposition: Patient can be considered for discharge once cleared by compliance auditor who is waiting for an echocardiogram Objective - Vital Signs Vital signs: Vital Signs Temp 97.6 F 06/23/24 14:00 Pulse 74 06/23/24 14:52 Resp 17 06/23/24 14:00 BP 143/63 06/23/24 14:00 Pulse Ox 96 06/23/24 14:00 FiO2 Intake & Output 06/22/24 06/23/24 06/23/24 18:59 06:59 18:59 Intake Total 1744 Balance 1744 Intake: IV 10 Invasive Line 2 10 Oral 1734 Other: Voiding Method Toilet Toilet # Voids 5 # Bowel Movements 1 - Labs CBC & Chem 7: 06/23/24 06:53 06/23/24 06:53 Labs: Abnormal Lab Results - Last 24 Hours (Table) 06/23/24 06/23/24 Range/Units 06:53 06:53 RBC 3.96 L (4.30-5.90) m/uL Hgb 12.1 L (13.0-17.5) gm/dL Hct 37.6 L (39.0-53.0) % Lymphocytes # 0.6 L (1.0-4.8) k/uL Chloride 112 H (98-107) mmol/L Carbon Dioxide 18 L (22-30) mmol/L BUN 26 H (9-20) mg/dL Glucose 135 H (74-99) mg/dL
[2024-06-23] MEDS: ACETAMINOPHEN TAB 325 MG TAB PO PRN (21:47)
--- NOTE | 2024-06-24 07:06 | CA ---
Transthoracic Echo Report Name: Vicente Ball Age: 68 Gender: M : 1955 Exam Date: 06/23/2024 08:30 Exam Location: [facility] Ht (in): 72 Wt (lb): 180 Ordering Physician: Kati Odell Attending/Referring Phys: [id number], Jose R [employer] Promise Abbasi, AMER[place] Procedure CPT: Indications: Chest Pain Cardiac Hx: Flu+, COPD Technical Quality: Fair Contrast 1: Total Dose (mL): Contrast 2: Total Dose (mL): MEASUREMENTS (Male / Female) Normal Values 2D ECHO LV Diastolic Diameter PLAX 5.8 cm 4.2 - 5.9 / 3.9 - 5.3 cm LV Systolic Diameter PLAX 4.0 cm IVS Diastolic Thickness 0.6 cm 0.6 - 1.0 / 0.6 - 0.9 cm LVPW Diastolic Thickness 0.8 cm 0.6 - 1.0 / 0.6 - 0.9 cm LV Relative Wall Thickness 0.2 LV Diastolic Volume MOD 4C 144.3 cm??? LV Systolic Volume MOD 4C 52.6 cm??? LV Ejection Fraction MOD 4C 63.6 % LV Cardiac Index MOD 4C 3236.3 cm???/min???m??? LV Diastolic Length 4C 8.4 cm LV Systolic Length 4C 7.0 cm LV Diastolic Volume MOD 2C 156.4 cm??? LV Systolic Volume MOD 2C 62.8 cm??? LV Ejection Fraction MOD 2C 59.8 % LV Cardiac Index MOD 2C 3300.2 cm???/min???m??? LV Diastolic Length 2C 8.7 cm LV Systolic Length 2C 7.3 cm M-MODE Aortic Root Diameter MM 2.5 cm LA Systolic Diameter MM 1.8 cm LA Ao Ratio MM 0.7 DOPPLER AV Peak Velocity 137.9 cm/s AV Peak Gradient 7.6 mmHg AV Mean Velocity 89.2 cm/s AV Mean Gradient 3.6 mmHg AV Velocity Time Integral 27.5 cm LVOT Peak Velocity 77.0 cm/s LVOT Peak Gradient 2.4 mmHg LVOT Velocity Time Integral 20.0 cm MV Area PHT 3.6 cm??? Mitral E Point Velocity 105.7 cm/s Mitral A Point Velocity 91.1 cm/s Mitral E to A Ratio 1.2 MV Deceleration Time 210.9 ms TR Peak Velocity 236.8 cm/s TR Peak Gradient 22.4 mmHg Right Atrial Pressure 15.0 mmHg Pulmonary Artery Systolic Pressu 37.4 mmHg Right Ventricular Systolic Press 37.4 mmHg FINDINGS Left Ventricle Left ventricular ejection fraction is estimated at 60-65 %. Normal left ventricular systolic function with no obvious regional wall motion abnormalities. Left ventricular cavity size normal. Left ventricular wall thickness normal. Right Ventricle Normal right ventricular size and function. Mild pulmonary hypertension. Right Atrium Mild right atrial dilatation. Left Atrium Moderate left atrial dilatation. Interatrial septal aneurysm. Mitral Valve Structurally normal mitral valve. Trace mitral regurgitation. No mitral stenosis. Aortic Valve Trileaflet aortic valve. No aortic valve stenosis or regurgitation. Tricuspid Valve Structurally normal tricuspid valve. Mild tricuspid regurgitation. No tricuspid stenosis. Pulmonic Valve Structurally normal pulmonic valve. Trace pulmonic regurgitation. No pulmonic stenosis. Pericardium Trace pericardial or pleural effusion. Aorta Normal size aortic root and proximal ascending aorta. CONCLUSIONS Normal LV systolic function Mild pulmonary hypertension Trace pericardial effusion No significant valvular abnormality Previewed by: Dr. Kendell Khan MD (Electronically Signed) Final Date: 24 June 2024 07:05
[2024-06-24 08:12] VITALS: BP 159/77; RESP 18; TEMP 97.6
[2024-06-24 08:43] VITALS: PULSE 75
--- NOTE | 2024-06-24 10:31 | P.PN ---
Subjective Progress Note Date: 06/23/24 Consult reason: chest pain (history of CAD) History of present illness: This is a 68-year-old male patient of Dr. Agustin with past medical history of rheumatoid arthritis, tobacco use, right kidney cancer status post nephrectomy, coronary artery disease status post PCI of the RCA in May 2020, unable to tolerate antianginal medications, multiple abdominal vascular procedures, details are not available. We have been asked to evaluate the patient for chest pain with history of coronary artery disease. Patient states that on Saturday he started having a raspy throat feeling and then it continued to worsen on as well as Saturday. He states he had a cough and felt like he had sputum was not able to bring it up. He complains of fever and chills. He called EMS as blood pressure was 227/120. He states he has chest pain every time he coughs. Upon arrival to [facility] emergency center, blood pressure was 180/73. His blood pressure is now 151/84, heart rate 73, pulse ox 96% on room air. Patient has tested positive for influenza and started on Tamiflu, nebulizer treatments and steroids. -EKG: Sinus rhythm with nonspecific ST changes. -Chest x-ray 06/22: No acute process. -Laboratory studies: WBC 6.7, hemoglobin 12.7, count 122. Sodium 142, potassium 4.9, BUN 26 creatinine 1. Lactic acid 3.3 down to 1.6. Troponin negative x 2. Influenza A positive. -Home cardiac medications: Amlodipine 5 mg daily, Nitrostat. -Cardiac catheterization performed revealed patent RCA stent with mild luminal irregularities and an LVEDP of 16. 06/23 Patient seen and examined on the observation first floor. Patient states breathing is much better today. Patient did have an episode of hallucinations last night but seems to be back to baseline this morning. Blood pressure 144/81, heart rate in the 60s and 70s, pulse ox 95% on room air. Repeat blood work reveals hemoglobin 12.1, WBC 7.6, sodium 140, potassium 4.7, BUN 26 creatinine 0.8. Echocardiogram reveals normal LV systolic function. Mild pulmonary hypertension. Trace pericardial effusion. No significant valvular abnormality. Physical examination: Gen: This is 68-year-old male in no acute distress. VS: reviewed HEENT: Head is atraumatic, normocephalic. Pupils equal, round. Sclerae is anicteric. NECK: Supple. No JVD. LUNGS: Bilateral expiratory wheeze i. No intercostal retractions. HEART: Regular rate and rhythm. No murmur. ABDOMEN: Soft No tenderness. EXTREMITIES: No pedal edema. No calf tenderness. NEUROLOGICAL: Patient is awake, alert and oriented x3. Assessment: Influenza A Possible COPD exacerbation History of coronary artery disease with PCI of the RCA in May 2020 Chronic chest pain and dyspnea on exertion Hyperlipidemia Bridging of the LAD, Thrombocytopenia History of kidney cancer status post nephrectomy History of TIA Plan: Continue patient's home cardiac medications Continue patient on aspirin 81 mg daily, atorvastatin 40 mg at bedtime No further cardiac workup at this time Cardiology will sign off this case and follow on an as-needed basis. Please reconsult for any new concerns. Patient may follow-up in the office in one to [address] Agustin. Nurse practitioner note has been reviewed, I agree with documented findings and plan of care. Patient was seen and examined. Objective - Vital Signs Vital signs: Vital Signs Temp 97.8 F 06/23/24 01:57 Pulse 89 06/23/24 01:57 Resp 18 06/23/24 01:57 BP 191/73 06/23/24 01:57 Pulse Ox 95 06/23/24 01:57 FiO2 Intake & Output 06/22/24 06/23/24 06/23/24 18:59 06:59 18:59 Intake Total 1744 Balance 1744 Intake: IV 10 Invasive Line 2 10 Oral 1734 Other: Voiding Method Toilet # Voids 5 # Bowel Movements 1 - Labs CBC & Chem 7: 06/23/24 06:53 06/23/24 06:53 Labs: Abnormal Lab Results - Last 24 Hours (Table) 06/22/24 06/23/24 06/23/24 Range/Units 03:50 06:53 06:53 RBC 3.96 L (4.30-5.90) m/uL Hgb 12.1 L (13.0-17.5) gm/dL Hct 37.6 L (39.0-53.0) % Lymphocytes # 0.6 L (1.0-4.8) k/uL Chloride 112 H 112 H (96-109) mmol/L Carbon Dioxide 20.0 L 18 L (21.6-31.8) mmol/L BUN 26 H (9-20) mg/dL BUN/Creatinine Ratio 26.20 H (12.00-20.00) Ratio Glucose 162 H 135 H (70-110) mg/dL Calcium 8.4 L (8.7-10.3) mg/dL
--- NOTE | 2024-06-24 15:32 | P.PN ---
Subjective Progress Note Date: 06/24/24 This is a 68-year-old male patient is being seen in consultation for dyspnea and chest pain. The patient came into the emergency department for those symptoms. The viral screen came back positive for influenza A. The patient was kept in the hospital for cardiac evaluation as the patient was complaining of some nonspecific chest pain. He is known to have coronary artery disease and the patient has undergone previous PCI to the RCA back in May 2020. He is also known to have previous nephrectomy for right kidney cancer in addition to history of rheumatoid arthritis. He is not vaccinated. He is currently on room air oxygen with a pulse ox of 95%. Chest x-ray was reviewed and it shows no a cute cardiopulmonary process. Blood work shows normal electrolytes, normal renal function, lactic acid level was at 2.7 dropped down to 1.6. Troponins were 0.02 x 2 respectively. White cell count is 6.7 with a was 1.7 and a platelet count of 122. EKG showed no significant ST segment elevations and a cardiology consultation was requested. Echocardiogram is pending for now. The patient is currently on aspirin. He also takes statins for history of hyperlipidemia. Previous cardiac catheterization from April 2024 revealed patent stent to RCA with left ankle end-diastolic pressure of 16. On 06/23/2024, the patient is being seen for a follow-up. The patient is still congested and overnight, he encountered some increased hallucination probably due to systemic steroids/IV Solu-Medrol. Based on that, IV Solu-Medrol was discontinued and the patient was started on prednisone burst taper. He remains on Tamiflu. He remains on DuoNeb the regiment [id number]. He remains on room air oxygen with a pulse ox of 96%. The white cell count 7.6 with a heme of 4.1 and a platelet count of 161. BUN is 26 with a creatinine of 0.8. Sodium is at 140. Serum bicarb is at 18. The patient remains on DuoNeb [facility]. Lovenox 40 mg subcu for DVT prophylaxis. He is on Robitussin DM for cough and congestion. He is also on Tamiflu. 06/24/2024, the patient is being seen for a follow-up. Doing well. Still having some cough and congestion. No hallucinations. No agitation. Steroids have been discontinued and the patient remains on Tamiflu. He is receiving DuoNeb treatments [id number]. Awake and alert. Communicating. No nausea vomiting diarrhea or abdominal pain. No other complaints otherwise. White cell count 7.6 hemoglobin 4.1 and a platelet count of 161. Electrolytes are all within normal limits and those labs are from yesterday. Objective - Vital Signs Vital signs: Vital Signs Temp 97.6 F 06/24/24 08:00 Pulse 75 06/24/24 08:42 Resp 18 06/24/24 08:00 BP 159/77 06/24/24 08:00 Pulse Ox 95 06/24/24 08:00 FiO2 Intake & Output 06/23/24 06/24/24 06/24/24 18:59 06:59 18:59 Other: Voiding Method Toilet Toilet # Voids 4 2 - Exam The patient appeared well nourished and normally developed. Vital signs as doc umented. Currently on room air oxygen Head exam is unremarkable. No scleral icterus or corneal arcus noted. Neck is without jugular venous distension, thyromegaly, or carotid bruits. Carotid upstrokes are brisk bilaterally. Lungs are showing few scattered expiratory wheezes bilaterally. Breath sounds are distant. Cardiac exam reveals the PMI to be normally sized and situated. Rhythm is regular. First and second heart sounds normal. No murmurs, rubs or gallops. Abdominal exam reveals normal bowel sounds, no masses, no organomegaly and no aortic enlargement. Extremities are nonedematous and both femoral and pedal pulses are normal. Examination of the skin revealed no evidence of significant rashes, suspicious appearing nevi or other concerning lesions. Neurologically, the patient is awake and alert and the patient does not have any focal neurological deficit. Cranial nerves are essentially intact. - Labs CBC & Chem 7: 06/23/24 06:53 06/23/24 06:53 Assessment and Plan Plan: Acute influenza A infection, currently on Tamiflu, clinically improved, afebrile. COPD with possibly a component of mild exacerbation secondary influenza A, currently on bronchodilators. IV Solu-Medrol was discontinued based on some increased hallucinations and restlessness that occurred overnight. Coronary artery disease with previous stenting to RCA, patent based on a cardiac catheterization from April 2024 History of renal cell carcinoma with a previous right nephrectomy Rheumatoid arthritis Hypertension Hyperlipidemia Impaired hearing and the patient wears bilateral hearing aids Previous history of TIA back in 2021 without any residual deficits History of shingles Plan Clinically stable Patient is currently on room air oxygen Continue Brandon veliz Complete the course of Tamiflu Echocardiogram was also completed on 06/23/2024 and the patient has normal LV function, no significant abnormalities noted. Lovenox for DVT prophylaxis The patient to be transition to a prednisone burst taper at the time of discharge Continue Macarena Would like to go home today and follow-up on outpatient basis
--- NOTE | 2024-06-26 10:00 | CDI ---
Documentation Clarification Form Date: 06/26/2024 From: Ofelia Singh Admit Date: 06/20/2024 03:43:00 PM Patient Name: Vicente Ball Visit Number: [id number] Discharge Date: 06/24/2024 02:33:00 PM ATTENTION: The Clinical Documentation Specialists (CDI) and [facility] Coding Staff appreciate your assistance in clarifying documentation. Please respond to the clarification below the line at the bottom and electronically sign. The CDI & [facility] Coding staff will review the response and follow-up if needed. Please note: Queries are made part of the Legal Health Record. If you have any questions, please contact the author of this message via ITS. Dr. Jalil Marroquin Your patient has influenza A and COPD exacerbation. Per ED Clinical Impressions: "Hypoxic respiratory failure" is documented. Wheezing on exam. Based on this information and the findings below, is there an additional diagnosis that is clinically appropriate for this patient? History/Risk Factors: Influenza A with respiratory manifestations, possible COPD exacerbation, PCI of the RCA 2020, dyspnea on exertion. Tobacco use: Smokes cigarettes Home oxygen: NO Clinical Indicators: Vital signs: 100.2 F, 83 bpm, 22, 180/73, 98% 2NC down to 94% 2L NC Lactic Acid 4.0 Treatment: Albuteral Inhaler, Solumedrol IV, Duoneb, O2 2L NC Breathing tx Patient had breathing treatments on the way to hospital and in ER O2/Vent/BiPap 2L NC Is there an additional diagnosis that is clinically appropriate for this patient? [ ] Acute Hypoxic Respiratory Failure [ ] Acute Hypercapnic Respiratory Failure [ ] Acute on Chronic Respiratory Failure [ ] Chronic Respiratory Failure [ ] Acute Respiratory Distress [x ] Acute Respiratory Insufficiency [ ] No additional diagnosis/not clinically significant [ ] Other Diagnosis, please specify [ ] Unable to determine MTDD
--- NOTE | 2024-06-26 10:01 | CDI ---
Documentation Clarification Form Date: 06/26/2024 From: Ofelia Singh Admit Date: 06/20/2024 03:43:00 PM Patient Name: Vicente Ball Visit Number: [id number] Discharge Date: 06/24/2024 02:33:00 PM ATTENTION: The Clinical Documentation Specialists (CDI) and [facility] Coding Staff appreciate your assistance in clarifying documentation. Please respond to the clarification below the line at the bottom and electronically sign. The CDI & [facility] Coding staff will review the response and follow-up if needed. Please note: Queries are made part of the Legal Health Record. If you have any questions, please contact the author of this message via ITS. Dr. Jalil Marroquin Your patient has influenza A and COPD exacerbation. Per ED Clinical Impressions: "Hypoxic respiratory failure" is documented. Wheezing on exam. Based on this information and the findings below, is there an additional diagnosis that is clinically appropriate for this patient? History/Risk Factors: Influenza A with respiratory manifestations, possible COPD exacerbation, PCI of the RCA 2020, dyspnea on exertion. Tobacco use: Smokes cigarettes Home oxygen: NO Clinical Indicators: Vital signs: 100.2 F, 83 bpm, 22, 180/73, 98% 2NC down to 94% 2L NC Lactic Acid 4.0 Treatment: Albuteral Inhaler, Solumedrol IV, Duoneb, O2 2L NC Breathing tx Patient had breathing treatments on the way to hospital and in ER O2/Vent/BiPap 2L NC Is there an additional diagnosis that is clinically appropriate for this patient? [ ] Acute Hypoxic Respiratory Failure [ ] Acute Hypercapnic Respiratory Failure [ ] Acute on Chronic Respiratory Failure [ ] Chronic Respiratory Failure [ ] Acute Respiratory Distress [ ] Acute Respiratory Insufficiency [ x ] No additional diagnosis/not clinically significant [ ] Other Diagnosis, please specify [ ] Unable to determine MTDD
--- NOTE | 2024-06-27 21:33 | P.DS ---
Providers Date of admission: 06/20/24 15:43 Attending physician: Jalil Marroquin Consults: 06/21/24 10:35 Consult Physician Routine Consulting Provider: Arie Dan Consult Reason/Comments: chest pain, h/o cad Do you want consulting provider notified?: Yes 06/22/24 07:35 Consult Physician Routine Consulting Provider: Drew Angel Consult Reason/Comments: copd Do you want consulting provider notified?: Yes Primary care physician: Kathryn Thomas Hospital Course: Final Diagnosis -COPD with acute exacerbation -Acute respiratory insufficiency on admission, resolved. -influenza A patient will be started on Tamiflu -Tracheobronchitis from influenza -Coronary artery disease status post previous stent -Hypertension Discharge Disposition Stable for discharge home. As mentioned cardiac medications have been optimized and he will see the steel roller in the office in 1 week. Patient to see pulmonology on follow up in July. Recommend to see PCP Dr. Thomas in 1 to 2 days. Hospital Course This is a 68-year-old patient with known history of COPD came in with complaints of cough congestion. Patient is found to have influenza chest x-ray did not show any pneumonia. At this time patient has history of COPD, continues to smoke, current has been trying to quit and cut down on smoking. Patient does not use any oxygen at home is requiring oxygen here is having wheezing on exam. He was admitted to the hospital with consult placed to cardiology and pulmonology. Admitted in observation. He had low-grade fever at 100.2 on admission most likely related to his influenza A infection and currently covered with Tamiflu. Also he is on Zithromax for possible bronchitis and IV Solu- Medrol for acute COPD exacerbation. Patient noted to have ST changes on EKG and cardiology was consulted. Patient had an echocardiogram completed which reveals EF 60-65% mild pulmonary hypertension. Cardiology has optimized his medications he has been started on aspirin 81 mg daily, atorvastatin 40 mg HS, losartan 25 mg daily. He has been weaned to room air and currently afebrile. His wheezing has essentially resolved. His main complaint remains cough. He will be given tessalon perles and steroid taper for discharge. He has 2 more days of tamiflu. Please see medication reconciliation for a list of current medications. Thank you for allowing us to participate in the care of this patient. The impression and plan of care has been dictated by Kayla Diallo, Nurse Practitioner as directed. Dr. Cara MD I have performed a history and physical examination and medical decision making of this patient, discussed the same with the dictator, and agree with the dictators assessment and plan as written, documented as a scribe. Based on total visit time, I have performed more than 50% of this visit. Patient Condition at Discharge: Stable Plan - Discharge Summary Discharge Rx Participant: No New Discharge Prescriptions: New Atorvastatin [Lipitor] 40 mg PO HS #30 tab Famotidine [Pepcid] 20 mg PO DAILY #30 tab Oseltamivir [Tamiflu] 75 mg PO Q12HR 2 Days #4 cap Albuterol Inhaler [Ventolin Hfa Inhaler] 1 puff INHALATION QID #8 gm Benzonatate [Tessalon Perles] 100 mg PO TID PRN #21 capsule PRN Reason: Cough Aspirin 81 mg PO DAILY #30 tab Losartan [Cozaar] 25 mg PO DAILY #30 tab predniSONE 0 mg PO DIRECTED #30 tab Continue Nitroglycerin Sl Tabs [Nitrostat] 0.4 mg SL Q5M PRN PRN Reason: Chest Pain Diclofenac Sodium [Voltaren] 75 mg PO BID Acetaminophen Tab [Tylenol] 1,000 mg PO BID amLODIPine [Norvasc] 5 mg PO DAILY prednisoLONE ACETATE 1% OPHTH [Pred Forte 1%] 1 drop BOTH EYES BID Ketorolac 0.5% Ophth Soln [Acular 0.5%] 1 drop BOTH EYES BID Discharge Medication List Acetaminophen Tab [Tylenol] 1,000 mg PO BID 06/20/24 [History] Diclofenac Sodium [Voltaren] 75 mg PO BID 06/20/24 [History] Ketorolac 0.5% Ophth Soln [Acular 0.5%] 1 drop BOTH EYES BID 06/20/24 [History] Nitroglycerin Sl Tabs [Nitrostat] 0.4 mg SL Q5M PRN 06/20/24 [History] amLODIPine [Norvasc] 5 mg PO DAILY 06/20/24 [History] prednisoLONE ACETATE 1% OPHTH [Pred Forte 1%] 1 drop BOTH EYES BID 06/20/24 [History] Albuterol Inhaler [Ventolin Hfa Inhaler] 1 puff INHALATION QID #8 gm 06/23/24 [Rx] Aspirin 81 mg PO DAILY #30 tab 06/23/24 [Rx] Atorvastatin [Lipitor] 40 mg PO HS #30 tab 06/23/24 [Rx] Famotidine [Pepcid] 20 mg PO DAILY #30 tab 06/23/24 [Rx] Losartan [Cozaar] 25 mg PO DAILY #30 tab 06/23/24 [Rx] Oseltamivir [Tamiflu] 75 mg PO Q12HR 2 Days #4 cap 06/23/24 [Rx] predniSONE 0 mg PO DIRECTED #30 tab 06/23/24 [Rx] Benzonatate [Tessalon Perles] 100 mg PO TID PRN #21 capsule 06/24/24 [Rx] Follow up Appointment(s)/Referral(s): Jaron Agustin DO [STAFF PHYSICIAN] - 07/02/24 3:30 pm Deshawn Hunt DO [Doctor of Osteopathic Medicine] - 07/28/24 9:00 am Kathryn Thomas MD [Primary Care Provider] - 1-2 days Ambulatory/Diagnostic Orders: Basic Metabolic Panel [LAB.AMB] Time Frame: 3 Days, Location: None Selected Patient Instructions/Handouts: Analgesic/Antihistamine/Decongestant (By mouth), Acute Bronchitis (GEN), COPD (Chronic Obstructive Pulmonary Disease) (GEN) Activity/Diet/Wound Care/Special Instructions: heart healthy diet activity is restricted till you see your doctor Discharge Disposition: HOME SELF-CARE
== END 2024-06-24 14:33 | disposition home or self-care (01) | DRG 194 ==
LOC: EC 13:11 → 4SSUR 15:43 → 1SOBS 06-22 18:33
PROVIDERS: ADMIT Internal Medicine; ATTEND Internal Medicine
DX: J10.1 Influenza due to other identified influenza virus with other respiratory manifestations (principal); E87.20 Acidosis, unspecified; D69.6 Thrombocytopenia, unspecified; J44.1 Chronic obstructive pulmonary disease with (acute) exacerbation; E86.0 Dehydration; M06.9 Rheumatoid arthritis, unspecified; I10 Essential (primary) hypertension; R44.3 Hallucinations, unspecified; T38.0X5A Adverse effect of glucocorticoids and synthetic analogues, initial encounter; E78.5 Hyperlipidemia, unspecified; H91.90 Unspecified hearing loss, unspecified ear; R45.1 Restlessness and agitation; F17.210 Nicotine dependence, cigarettes, uncomplicated; J40 Bronchitis, not specified as acute or chronic; G89.29 Other chronic pain; I25.2 Old myocardial infarction; I25.10 Atherosclerotic heart disease of native coronary artery without angina pectoris; Z79.82 Long term (current) use of aspirin; Z79.899 Other long term (current) drug therapy; Z85.528 Personal history of other malignant neoplasm of kidney; Z86.19 Personal history of other infectious and parasitic diseases; Z97.4 Presence of external hearing-aid; Z86.73 Personal history of transient ischemic attack (TIA), and cerebral infarction without residual deficits; Z87.442 Personal history of urinary calculi; Z90.5 Acquired absence of kidney; Z95.5 Presence of coronary angioplasty implant and graft; Z96.651 Presence of right artificial knee joint; Z95.9 Presence of cardiac and vascular implant and graft, unspecified; Z87.01 Personal history of pneumonia (recurrent)
CPT/HCPCS: 36415; 71046; 80048; 80053; 81001; 83605; 83735; 84484; 85025; 85610; 85730; 87636; 93005; 93306; 94640; 94760; 96361; 96365; 96372; 96375; 96376; 99285

== ENCOUNTER → 2024-11-10 | Outpatient (CLI) | payer MEDICARE ==
--- NOTE | 2024-11-10 09:37 | CTL ---
EXAMINATION TYPE: CT Low Dose Lung DATE OF EXAM ORDERED: 11/10/2024 COMPARISON: CT chest 02/07/2022, CT Low Dose Lung 07/18/2016 CLINICAL INDICATION: Male, 69 years old with history of Z12.2, F17.210 NICOTINE DEPENDENCE, CIGARETTE S, UN; PHH, Current smoker, hx of 1PPD x50yrs., Lung cancer screening, History of Smoking/tobacco use . TECHNIQUE: Low dose computed tomography scan was performed through the chest at 1 mm thick sections a nd reconstructed images in multiple planes at 1 mm and [address] DLP: 94.[address] CTDI: 2.3 mGy Automated exposure control for dose reduction was used. CT DIAGNOSTIC QUALITY: Satisfactory FINDINGS: Nodules: No clinically significant pulmonary nodules. LUNGS: COPD: Severity: Mild centrilobular and paraseptal changes with a bulla within the anterior right lowe r lobe. Fibrosis: Severity: None Lymph nodes: None Other findings: Linear atelectasis within the right middle lobe and lingula. RIGHT PLEURAL SPACE: Effusion: None Calcification: None Thickening: None Pneumothorax: None LEFT PLEURAL SPACE: Effusion: None Calcification: None Thickening: None Pneumothorax: None HEART: Heart Size: Normal Coronary Calcification: Mild Pericardial Effusion: Trace OTHER FINDINGS: Upper abdomen: Stable right hepatic 2.5 cm cyst. Additional smaller posterior subcentimeter right hep atic dome cyst. Decreased size of cystic lesion within the left hepatic lobe now measuring up to 2.1 cm. Previously measured 3.7 cm. Straightening 7 mm left renal calculus. Post right nephrectomy change s with suggested increased soft tissue with peripherally calcified lesion within the surgical bed paul suring up to 5.4 cm, previously measuring up to 3.1 cm. There was enhancing soft tissue on prior CT i n 2021. The peripherally calcified lesion measures up to 2.9 cm which is stable from prior examinatio n and may represent fat necrosis. Bony thorax: Mild multilevel degenerative disc disease. Supraclavicular region: None Other: Mild atherosclerotic calcification of the aorta and its branches. IMPRESSION: 1. No clinically significant pulmonary nodules. 2. Mild emphysematous change. 3. Increasing size of soft tissue within the right nephrectomy bed with stable adjacent peripherally calcified lesion. Findings are concerning for possible malignancy recurrence. Recommend further eval uation with CT abdomen with and without IV contrast (renal mass protocol). CT LUNG RAD AND CT CHEST RECOMMENDATION: Lung-Rad 1 Negative: Continue annual screening with LDCT in 12 months. S Modifier (other clinically significant findings): [facility], , 11/10/2024 9:35 AM
== END | disposition home or self-care (01) ==
LOC: RADCTMAIN 08:51
PROVIDERS: ATTEND Internal Medicine Critical Care Medicine
DX: Z12.2 Encounter for screening for malignant neoplasm of respiratory organs (principal); F17.210 Nicotine dependence, cigarettes, uncomplicated; J43.9 Emphysema, unspecified; Z90.5 Acquired absence of kidney
CPT/HCPCS: 71271